=== PATIENT | male | born 1995 | race Caucasian/White ===

== ENCOUNTER 2017-11-13 14:50 | Emergency (ER) | payer OTHER, SELFPAY ==
[2017-11-13 14:52] VITALS: BP 159/95; PULSE 85; RESP 16; TEMP 36.5; O2SAT 100; BMI 30.9
--- NOTE | 2017-11-13 15:17 | ED.VISSUMM ---
- ER Visit Summary Date of Service: 11/13/17 Chief Complaint: Leg cramps History of Present Illness: The patient is a 22 M presents to the emergency department after 1 month of leg cramps. He was actually seen last year for right leg cramps. 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 He states that often times at nights he has muscle spasm it is which his calf goes into spasm. He states he has also been developing varicose veins in his legs. The patient states that he simply has not had time to go to his doctor and talk about this. He went to the urgent care and they told him to come to the emergency room. His been taking potassium supplements. He started wearing compression socks. He does not do much physical conditioning. As far as stretching he demonstrates a few exercises he does which basically is stretching his hamstrings. Physical Examination: Afebrile vital signs are stable Gen: Well-nourished well-developed Head: Normocephalic atraumatic Eyes: Perrl EOMI ENT: TMs clear no rhinorrhea moist mucous membranes Neck: Supple no lymphadenopathy no JVD nontender CVS: Regular rate rhythm no murmurs normal S1-S2 Respiratory: No distress clear to auscultation bilaterally chest nontender Abdomen: Soft nontender nondistended normal bowel sounds no masses Back: Nontender Extremity: Nontender no edema Skin: Normal color no rash there are varicose veins near his feet. Neuro: alert orientated ?3 CN II-XII intact normal strength sensation reflexes gait cerebellar Psych: Normal affect normal mood Emergency Department Course and Treatment: Patient was advised that this is a long-term problem and there is no easy solution. He is advised that he needs to have deep tissue massage. Heat therapy. Calf specific stretching exercises. He is advised that physical therapy would be of benefit for him. We talked about massage techniques. I am going to write him a few Ativan for severe cramps during the night only. He is to see his doctor tomorrow which he states he can do. Impression: 1. Bilateral leg muscle cramps 2. Varicose veins bilateral legs This note was generated with [employer] dictation software. It may contain incorrect words, spelling, and punctuation that were not noted in review of the chart prior to signing ED Disposition - Plan for ED Patient: Disposition: Home or Assisted Living Chief Complaint: Lower Extremity Injury Instructions: ED Muscle Pain Leg Cramps Prescriptions: Lorazepam [Ativan] 1 mg PO QHS PRN PRN #5 tab PRN Reason: Muscle Spasm Referrals: Shoaib Humphrey MD [Primary Care Provider] - As soon as possible Additional Instructions: 1. Significant oral hydration 2. Deep tissue massage after work 3. Continued use of compression socks 4. Ativan at night for severe muscle cramps only to be taken with oral hydration 5. You need to speak with her doctor about physical therapy
[2017-11-13 15:39] VITALS: RESP 18
== END 2017-11-13 15:40 | disposition home or self-care (01) ==
PROVIDERS: Emergency Provider Emergency Medicine; Family Provider Family Medicine; PCP Family Medicine
DX: M62.831 Muscle spasm of calf (principal); I83.93 Asymptomatic varicose veins of bilateral lower extremities; M79.605 Pain in left leg; M79.604 Pain in right leg; K58.9 Irritable bowel syndrome, unspecified
CPT/HCPCS: 99282

== ENCOUNTER 2018-02-27 15:06 | Emergency (ER) | payer OTHER, SELFPAY ==
[2018-02-27 15:07] VITALS: BP 163/90; PULSE 98; RESP 18; TEMP 36.8; O2SAT 100; BMI 31.1
[2018-02-27 15:47] VITALS: BP 170/100
[2018-02-27] MEDS: LORazepam 1 MG Tablet PO (16:26)
[2018-02-27 17:13] LABS: Anion Gap 5 (5-15); BUN 9 mg/dL (7-18); BUN/Creat Ratio 10.2 RATIO (10-20); Chloride 107 mmol/L (98-107); Creatinine, Serum 0.88 mg/dL (0.70-1.30); EST Glomerular Filtration Rate 114 mL/min (>60); Est Glom Filt Rate - Afr Amer 138 mL/min (>60); Glucose 104 mg/dL (74-106); Sodium Level 138 mmol/L (136-145)
--- NOTE | 2018-02-27 17:19 | ED.VISSUMM ---
- ER Visit Summary Date of Service: 02/27/18 Chief Complaint: Anxiety [] History of Present Illness: The patient is a 22 M presents the emergency department with multiple complaints. Patient states that he was playing video games on his bed when he got up to go to work and felt like his thighs got tight. Patient felt soreness and tightness in his neck. Patient got numbness and tingling in his fingertips and became very anxious. Patient states that he started the panic and have a panic attack. Patient has had a couple other episodes like this in the past. Patient does not take anything for anxiety or depression.] Physical Examination: [HEENT-PERRLA, EOMI. Cranial nerves II through XII grossly intact. TMs clear. Mucous membranes moist. No adenopathy. Cardiovascular-regular rate and rhythm without murmur or ectopy Lungs-clear to auscultation, chest wall stable without crepitus or subcu emphysema Abdomen-normoactive bowel sounds, soft, nontender, no rebound or rigidity, no peritoneal signs. Extremities-intact ?4, normal range of motion, normal pulses, atraumatic]. Patient has plus 5 out of 5 muscle strength in the upper and lower extremities. Test Results: [BMP obtained was normal] Emergency Department Course and Treatment: [Patient received Ativan 1 mg p.o. and felt improved after.] Treatment Plan: [Patient will be given a prescription for as needed Ativan. Patient advised to follow-up with his primary care physician within next 3-5 days.] Disposition: [Discharged home in stable condition] Impression: [Anxiety reaction] This note was generated with [employer] dictation software. It may contain incorrect words, spelling, and punctuation that were not noted in review of the chart prior to signing ED Disposition - Plan for ED Patient: Chief Complaint: Anxiety Referrals: Shoaib Humphrey MD [Primary Care Provider] -
--- NOTE | 2018-02-27 17:21 | ED.DEP ---
ED Disposition - Plan for ED Patient: Chief Complaint: Anxiety Instructions: ED Panic Attack Prescriptions: Lorazepam [Ativan] 1 mg PO TID PRN #10 tab PRN Reason: Anxiety Referrals: Shoaib Humphrey MD [Primary Care Provider] - 3-5 Days
[2018-02-27 17:39] VITALS: BP 160/98; PULSE 88; RESP 16; RESP 18; O2SAT 98
== END 2018-02-27 17:40 | disposition home or self-care (01) ==
LOC: ED 16:04
PROVIDERS: Emergency Provider Emergency Medicine; Family Provider Family Medicine; PCP Family Medicine
DX: F41.1 Generalized anxiety disorder (principal); K58.9 Irritable bowel syndrome, unspecified; Z86.2 Personal history of diseases of the blood and blood-forming organs and certain disorders involving the immune mechanism; Z79.899 Other long term (current) drug therapy; Z72.0 Tobacco use
CPT/HCPCS: 80048; 99283

== ENCOUNTER 2019-02-05 19:05 | Emergency (ER) | payer OTHER, SELFPAY ==
[2019-02-05 19:06] VITALS: BP 170/104; PULSE 92; RESP 15; TEMP 36.7; O2SAT 100; BMI 35.6
--- NOTE | 2019-02-05 20:28 | ED.VISSUMM ---
- ER Visit Summary Date of Service: 02/05/19 Chief Complaint: Dental pain History of Present Illness: The patient is a 23 M who presents with dental pain that became worse today. Patient states he had a tooth pulled this morning. Patient states the pain is gradually gotten worse throughout the day today. Patient states he has been taking ibuprofen with no relief. Patient denies any fevers or chills. Patient describes the pain as a pressure. Patient states the pain is localized to the left lower posterior molar. Patient admits to cold sensitivity. Patient denies any chest pain or shortness of breath. Patient denies any nausea or vomiting. Physical Examination: Vital signs are stable. Patient is afebrile. Patient is in no acute distress. Oral mucosa is pink and moist. There is an extraction over the left lower second molar area. There is no dry socket noted. There is dried blood noted over the extraction site. Oropharynx is clear. Airway is patent. Neck is supple. Trachea is midline. There is no JVD or lymphadenopathy noted. Heart was regular rate and rhythm. Lungs are clear and equal bilaterally. Emergency Department Course and Treatment: Patient was given 1 dose of [place] here. Patient was instructed to continue taking Tylenol and ibuprofen as needed for pain at home. Patient was instructed to follow-up with his dentist in 5 to 7 days. Patient was instructed to return if worse in any way. Patient understood and was agreeable with the plan. All questions were answered. Disposition: Discharge home Impression: Odontalgia This note was generated with [employer] dictation software. It may contain incorrect words, spelling, and punctuation that were not noted in review of the chart prior to signing ED Disposition - Plan for ED Patient: Disposition: Home or Assisted Living Diagnosis: Odontalgia Instructions: Dental Pain Referrals: Shoaib Humphrey MD [Primary Care Provider] - 5-7 Days
[2019-02-05] MEDS: HYDROcodone Bitartrate/Apap 5/325 Tablet PO (20:42)
[2019-02-05 20:44] VITALS: PULSE 99; RESP 16; O2SAT 97
--- NOTE | 2019-02-05 20:45 | ED.RN ---
THIS NURSE REVIEWED D/C INSTRUCTIONS WITH PT. PT VERBALIZED UNDERSTANDING OF INSTRUCTIONS. PT DENIES FURTHER NEEDS OR QUESTIONS AT THIS TIME.
== END 2019-02-05 20:56 | disposition home or self-care (01) ==
PROVIDERS: Emergency Provider Emergency Medicine; Family Provider Family Medicine; PCP Family Medicine
DX: K08.89 Other specified disorders of teeth and supporting structures (principal); M54.2 Cervicalgia; E66.9 Obesity, unspecified; F17.200 Nicotine dependence, unspecified, uncomplicated
CPT/HCPCS: 99283

== ENCOUNTER 2020-05-05 14:05 | Emergency (ER) | payer OTHER, SELFPAY ==
[2020-05-05 14:06] VITALS: BP 187/126; PULSE 80; RESP 14; TEMP 36.7; O2SAT 98; BMI 33.4
== END 2020-05-05 16:21 | disposition left against medical advice (07) ==
LOC: ED 16:19
PROVIDERS: Emergency Provider Emergency Medicine; PCP Family Medicine
DX: Z53.21 Procedure and treatment not carried out due to patient leaving prior to being seen by health care provider (principal)

== ENCOUNTER 2021-07-15 13:07 | Observation (INO) | payer OTHER, SELFPAY ==
[2021-07-15] VITALS (9 sets, daily range): BP systolic 145–174; BP diastolic 83–113; PULSE 108–128; RESP 15–22; TEMP 36.1–37.3; O2SAT 95–100; BMI 33.5; BMI 31.9
--- NOTE | 2021-07-15 13:53 | RAD_ITS ---
STUDY: X-RAY - ABDOMEN/PELVIS REASON FOR EXAM: Male, 25 years old. Constipation TECHNIQUE: 4 views of the abdomen and pelvis COMPARISON: None. FINDINGS: Normal visualized lung bases. There is an unremarkable bowel gas pattern. There is no demonstrated free abdominal air. Extremely large stool burden. Normal soft tissue structures. Normal visualized osseous structures. RAD/Abdomen Single View (Portable) IMPRESSION: Extremely large stool burden. Electronically Signed: Gerson Adams MD at 15:10 EST Tel , Service support ,
--- NOTE | 2021-07-15 14:01 | ED.VIS.GI ---
HPI HPI - GI History of Present Illness Chief Complaint: Constipation Detail of Chief Complaint: Abdominal pain and constipation Informant: patient Narrative Narrative: Patient presents to the emergency department complaint of abdominal pain. Patient states that he is quite constipated and has not had a good bowel movement in over a month. Patient states that years ago when he was in high school he had an impaction that required disimpaction via sedation at [facility]. Patient has history of IBS. Patient denies any vomiting. He denies fever. He denies urinary symptoms. Patient states at night he will leak stool but has not had a good bowel movement in a month. Prior similar symptoms: Yes PFSH PFSH Medical History no medical history Allergy/AdvReac Type Severity Reaction Status Date / Time barium sulfate Allergy Other Verified 07/15/21 13:08 lactose Allergy Abd Verified 07/15/21 13:08 cramps/diarrhea tramadol Allergy Hives Verified 07/15/21 13:08 Social History Smoking Status: Unknown if ever smoked ROS ROS ED Constitutional Constitutional ED: Reports systems reviewed and no addt'l complaints, except as documented; Denies body ache(s), change in weight or chills Eyes Eyes: Denies acute decrease in peripheral vision, change in vision, double vision or loss of vision ENT ENT ED: Reports none; Denies ear pain, lip swelling, loss taste/smell, neck pain, otalgia or sore throat Cardiovascular Cardiovascular: Reports none; Denies abdominal pain, chest pain with activity, leg edema, lightheadedness, palpitations, rapid heart rate or syncope Respiratory/Chest Respiratory/Chest: Reports none; Denies change in mental status, dry cough, dyspnea, hemoptysis, shortness of breath at rest or shortness of breath with exertion Gastrointestinal Gastrointestinal: Reports none, abdominal pain and constipation; Denies change in stool character, diarrhea, hematemesis, hematochezia, melena, rectal bleeding or vomiting Genitourinary Genitourinary ED: Reports none; Denies abdominal discomfort, anuria, dysuria, genital pain or polyuria Musculoskeletal Musculoskeletal: Reports none; Denies arthralgias, back pain, difficulty walking, extremity pain, muscle weakness or myalgias Integumentary Reports none; Denies abscess or rash Neurologic Neurologic: Reports none; Denies abnormal gait, confusion, focal weakness, frequent falls, headache(s), loss of vision, numbness, paresthesias, radicular pain, vertigo or weakness Psychiatric Psychiatric: Reports systems reviewed and no addt'l complaints, except as documented and none; Denies behavioral changes, confusion, difficulty concentrating, hallucinations, suicidal ideation, tactile hallucinations or visual hallucinations Endocrine Endocrinology: Denies none, cold intolerance, excessive sweating, fatigue or heat intolerance Hematologic/Lymphatic Hematologic/Lymphatic: Reports none; Denies anemia, easy bleeding or easy bruising Allergic/Immunologic Allergic/Immunologic ED: Denies as per HPI, none, lip swelling, mouth swelling, throat swelling, tongue swelling or hives EXAM Physical Exam Const Vital Signs: 07/15/21 13:08 Temperature 97.2 F L Temperature Source Temporal Pulse Rate 120 H Respiratory Rate 16 Blood Pressure 145/103 H Blood Pressure Mean 117 Pulse Ox 95 Oxygen Delivery Method Room Air Positive well nourished and well developed General Appearance ED: well developed and NAD HEENT Reports TM's clear and moist mucous membranes normocephalic and atraumatic; Negative for trauma or tenderness Tympanic Membrane ED: Yes TM's clear Eyes PERRL and EOMs intact bilaterally General Eye ED: Negative for pale conjunctiva or scleral icterus Neck no lymphadenopathy, supple and no JVD General: Negative for tenderness Chest Wall inspection of chest normal and palpation of chest normal Chest: Negative for tenderness Resp normal respiratory effort and clear to auscultation bilaterally Effort and Inspection: Negative for respiratory distress or pain with movement Auscultation: Negative for rhonchi, wheezes or diminished lung sounds Cardio regular rate, regular rhythm, S1 normal heart sound, S2 normal heart sound and no murmurs Peripheral Pulses: pulses 2+ throughout GI normal to inspection, nondistended, normoactive bowel sounds, soft to palpation, non-distended and no masses GI Narrative: Patient has mild diffuse distention of the abdomen with mild diffuse tenderness. No rebound, rigidity, or peritoneal signs. On rectal exam. He has very hard stool within the rectal vault that I attempted to disimpact manually however he does not tolerate the exam and the stool was quite hard. Back/Spine no CVA tenderness and no thoracic nor lumbar tenderness Extremity normal to inspection General Extremety ED: Negative for edema General Extremity: Negative for edema Neuro oriented x3, CN's II-XII intact bilaterally, no sensory deficits noted and gait normal Sensorium / Orientation: awake, alert, oriented to person, oriented to place and oriented to time Motor Exam: strength 5/5 throughout and strength abnormal Psych mental status grossly normal Skin no rashes or lesions noted and no wounds MDM MDM MDM Narrative Medical decision making narrative: IV line established on arrival. Basic labs were unremarkable. I initially attempted digital disimpaction however this was unsuccessful as there is a large stool burden within the rectal vault and the stool is hard. Patient unable to tolerate exam. Case was discussed with general surgeon after plain films showed large amount of stool burden throughout the colon. Patient will be evaluated by general surgeon Dr. Garcia in the department. I suspect patient will likely require sedation in OR decompression. Lab Data Attestation: I reviewed the patient's lab results. Labs: Laboratory Results - last 24 hr 07/15/21 07/15/21 07/15/21 14:15 14:15 14:15 WBC 6.8 RBC 4.16 L Hgb 12.2 L Hct 36.6 L MCV 88.0 MCH 29.3 MCHC 33.3 RDW Std Deviation 39.1 RDW Coeff of Arvin 12.2 Plt Count 394 MPV 9.3 Immature Gran % (Auto) 0.400 Neut % (Auto) 61.3 Lymph % (Auto) 27.4 [place] % (Auto) 9.5 Eos % (Auto) 1.0 Baso % (Auto) 0.4 Absolute Neuts (auto) 4.1 Absolute Lymphs (auto) 1.85 Nucleated RBC % 0 Sodium 139 Potassium 3.6 Chloride 106 Carbon Dioxide 25.0 Anion Gap 8 BUN 13 Creatinine 0.68 L Estim Creat Clear Calc 187.67 Est GFR (MDRD) Af Amer 182 Est GFR (MDRD) Non-Af 151 BUN/Creatinine Ratio 19.2 Glucose 104 Lactic Acid 0.6 Calcium 8.8 Radiography Diagnostic Testing: Clinical Impression(s) from Imaging Studies KUB X-Ray 07/15/21 13:53 IMPRESSION: Extremely large stool burden. Electronically Signed: Gerson Adams MD at 15:10 EST Tel , Service support , Abdomen/Pelvis CT 07/15/21 16:03 Discharge Plan Triage Chief Complaint: Constipation ED Provider: Toñito Young Dx/Rx/DC Orders Clinical Impression: Constipation, Fecal impaction in rectum Primary Care Provider: Shoaib Humphrey Referrals: Shoaib Humphrey MD [Primary Care Provider] - Disposition Disposition: Acute Care Hospital [facility]
[2021-07-15 14:23] LABS: Absolute Lymphocyte Count 1.85 X10^3/uL (0.83-4.51); Absolute Neutrophil Count 4.1 X10^3/uL (2.0-7.7); Basophil# 0.03 X10^3/uL; Basophil% 0.4 % (0-1); Eosinophil# 0.07 X10^3/uL; Hematocrit 36.6 % (40-54); Hemoglobin 12.2 g/dL (13.0-16.5); Lymphocyte # 1.85 X10^3/ul (0.83-4.51); Lymphocyte % 27.4 % (19-41); Mean Corp Hgb Conc 33.3 g/dL (32-36); Mean Corpuscular Hgb 29.3 pg (27.0-32.0); Mean Platelet Vol. 9.3 fl (6.2-12.0); Monocyte# 0.64 X10^3/uL; Monocyte% 9.5 % (0-10); NRBC Flagged by Analyzer 0 % (0-5); Neutrophil # 4.13 X10^3/uL (2.7-7.7); Neutrophil % 61.3 % (47-70); Platelet Count 394 K/mm3 (150-450); RBC Distribution Width CV 12.2 % (11.6-14.6); RBC Distribution Width SD 39.1 fl (35.1-43.9); Red Blood Count 4.16 M/mm3 (4.6-6.2); White Blood Count 6.8 K/mm3 (4.4-11.0)
[2021-07-15 14:37] LABS: Anion Gap 8 (5-15); BUN 13 mg/dL (7-18); BUN/Creat Ratio 19.2 RATIO (10-20); Calcium,Total 8.8 mg/dL (8.5-10.1); Chloride 106 mmol/L (98-107); Creatinine, Serum 0.68 mg/dL (0.70-1.30); EST Glomerular Filtration Rate 151 mL/min (>60); Est Glom Filt Rate - Afr Amer 182 mL/min (>60); Estimated Creatinine Clearance 187.67 ml/min; Glucose 104 mg/dL (74-106); Potassium 3.6 mmol/L (3.5-5.1); Sodium Level 139 mmol/L (136-145)
[2021-07-15 14:49] LABS: Lactic Acid 0.6 mmol/L (0.4-1.9)
--- NOTE | 2021-07-15 16:03 | CT_ITS ---
STUDY: CT Abdomen And Pelvis W/O Contrast Injection 07/15/2021 4:44 PM REASON FOR EXAM: Male, 25 years old. ABDOMINAL PAIN constipation TECHNIQUE: Transaxial images were obtained without oral contrast, and without intravenous contrast. Individualized dose optimization techniques were used for this CT. COMPARISON: 10/15/2015 FINDINGS: The visualized lung bases are unremarkable. The visualized portions of the heart are within normal limits. There is decreased attenuation of the liver consistent with steatosis. Normal gallbladder and extrahepatic biliary system. Normal spleen. Normal pancreas. Normal bilateral adrenal glands. No acute findings of the right kidney. No acute findings of the left kidney. Normal visualized stomach. Normal small intestine. There is an inflamed colon filled with feces and mural thickening. This suggests stercoral colitis. There is non-visualization of the appendix. Stool throughout the colon suggesting constipation. There are no acute findings of the abdominal aorta. Collapsed inferior vena cava suggesting dehydration. Normal urinary bladder. Normal abdominal wall. Normal osseous structures. IMPRESSION: (NOT LISTED IN ORDER OF SIGNIFICANCE) Fatty liver. There is an inflamed colon filled with feces and mural thickening. This suggests stercoral colitis with fecal impaction. Collapsed inferior vena cava suggesting dehydration. Other findings as above. Electronically Signed: Seb Harvey MD at 17:01 EST , Service support , CT/Abdomen/Pelvis without Cont
--- NOTE | 2021-07-15 17:17 | NURSING ---
MED SURG RENAN KEBEDE PAIN, FECAL IMPACTATION, CONSTIPATION
--- NOTE | 2021-07-15 17:36 | ED.RN ---
REPORT GIVEN TO JELANI
--- NOTE | 2021-07-15 17:49 | PCM.HP.STD ---
[facility] - General General Date of Admission: 07/15/21 HPI Narrative JAVIER MILLS, is a 25 M who presents to [facility] ER with complaints of no regular bowel movement for the last 1 month. He admits to a history of frequent constipation and dates that he is diagnosed with irritable bowel syndrome. In the ER he is uncomfortable and describes his discomfort as primarily being in the left upper quadrant of his abdomen as well as cramping in his legs. He feels severely distended but is otherwise not having significant abdominal pain. ER work-up is notable for normal chemistries/CBC but KUB shows severe distention of the colon with stool and follow-up CT confirms this in greater detail. CT Shows severe fecal impaction particularly from the rectum to the splenic flexure. The sigmoid colon is maximally dilated at approximately 18 cm by imaging. The transverse and ascending colon are both relatively normal in diameter as well as relatively decompressed small bowel. Based on this presentation and radiographic exam, surgery has been asked to see the patient for possible fecal disimpaction with sedation. Mr. Mills states that when he is normally constipated his bowel movements will occur with a frequency of 1-2 times per week. During this time he states that he usually requires a couple of classes of MiraLAX and some stool softeners to achieve this frequency. However, he states that he has fallen off his usual and expresses some challenges at home as they relate to being the father of 2 children. 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 He confesses that it has probably been 7 to 8 years since he has last followed up with gastroenterology. Further back in his history, Meri's mother relates a history of her son standing up in the bath when he was approximately in 6 grade screaming in pain and they came to realize that he was having bilirubin deposited in his urine is related to severe constipation. Sometime after this in his high school years, Mr. Mills underwent a barium enema study. Unfortunately, the barium failed to pass even after 2 weeks time. He states that they then decided to a colonic transit study but the sits markers became indistinguishable with the background of barium and the decision was made to pursue manual disimpaction with sedation (he estimates this was at about 19 years of age). When asked about any family history, patient's mother admits that she has a problem with constipation and has required 2 separate operations herself for twisting of the colon and was told that her colon was abnormally large and may recur she may require resection of some of it at some point. [facility] Medical History no medical history Home Medications NK 07/15/21 [History Last Taken Unknown] Allergy/AdvReac Type Severity Reaction Status Date / Time barium sulfate Allergy Other Verified 07/15/21 13:08 lactose Allergy Abd Verified 07/15/21 13:08 cramps/diarrhea tramadol Allergy Hives Verified 07/15/21 13:08 Social History Smoking Status: Unknown if ever smoked Vital Signs Vital Signs Vital Signs: 07/15/21 13:08 07/15/21 17:28 07/15/21 17:32 Temperature 97.2 F L 98 F 98 F Temperature Source Temporal Temporal Temporal Pulse Rate 120 H 128 H 128 H Respiratory Rate 16 18 18 Blood Pressure 145/103 H 174/110 H 174/110 H Blood Pressure Mean 117 131 131 Pulse Ox 95 96 96 Oxygen Delivery Method Room Air Room Air Room Air Weight Weight: 253 lb 15.56 oz Body Mass Index (BMI) 33.5 Physical Exam Const alert and oriented x3 Constitutional Narrative: In distress from his discomfort General Appearance: cooperative Resp normal respiratory effort GI GI Narrative: Abdominal distention present. There is abdominal striae in the lower quadrants of the abdomen. Patient is mildly firm with palpation but nontender x4 quadrants. With rectal exam, patient is passing gas and having liquid stool. I palpate no masses within the anal canal. At approximately 6 cm I palpate a significant stool burden that is quite firm. F Extremity Extremity Narrative: Mild bilateral edema General Extremity: edema bilateral Results Lab / Micro Data Result Diagrams: 07/15/21 14:15 07/15/21 14:15 Labs: Laboratory Results - last 24 hr 07/15/21 14:15: WBC 6.8, RBC 4.16 L, Hgb 12.2 L, Hct 36.6 L, MCV 88.0, MCH 29.3, MCHC 33.3, RDW Std Deviation 39.1, RDW Coeff of Arvin 12.2, Plt Count 394, MPV 9.3, Immature Gran % (Auto) 0.400, Neut % (Auto) 61.3, Lymph % (Auto) 27.4, Stewart % (Auto) 9.5, Eos % (Auto) 1.0, Baso % (Auto) 0.4, Absolute Neuts (auto) 4.1, Absolute Lymphs (auto) 1.85, Nucleated RBC % 0 07/15/21 14:15: Sodium 139, Potassium 3.6, Chloride 106, Carbon Dioxide 25.0, Anion Gap 8, BUN 13, Creatinine 0.68 L, Estim Creat Clear Calc 187.67, Est GFR (MDRD) Af Amer 182, Est GFR (MDRD) Non-Af 151, BUN/Creatinine Ratio 19.2, Glucose 104, Calcium 8.8 07/15/21 14:15: Lactic Acid 0.6 Radiology Impression KUB X-Ray 07/15/21 13:53 IMPRESSION: Extremely large stool burden. Electronically Signed: Gerson Adams MD at 15:10 EST Tel , Service support , Abdomen/Pelvis CT 07/15/21 16:03 Assessment & Plan Assessment/Plan (1) Fecal impaction in rectum: PLAN: This is a 25-year-old male with severe constipation as above. However, there does appear to be a change in the appearance of the stool by CT imaging which suggests a more significant dehydration of that fecal material which is found in the patient's rectum. Is my hope that by manually removing this stool, the patient may be able to evacuate the rest of his colon. Therefore, we will plan to proceed for manual disimpaction under sedation. (2) Constipation: QUALIFIERS: Constipation type: chronic idiopathic constipation Qualified Code(s): K59.04 - Chronic idiopathic constipation PLAN: This is a 25-year-old male who presents with severe constipation concerning for underlying colonic dysmotility that would be more than expected with typical irritable bowel syndrome. There is no history of Hirschsprung's, and both patient and the mother confirm that the GI symptoms developed during adolescence approximately the sixth grade. He has been under the care of numerous specialists but was only ever given the diagnosis of irritable bowel syndrome. He now presents with a 1 month history of no normal bowel movement. Patient is distended on exam, but his exam is relatively reassuring?as are his laboratories?that there is no bowel compromise at this point. CT imaging is quite concerning and shows a severely dilated sigmoid colon by stool. At maximal diameter this measures 18 cm. Importantly I do not see much if any evidence of pneumatosis coli and therefore believe the colon is still perfused. There does seem to be a transition in the stool appearance from the sigmoid colon into the rectum with a higher density in the rectum potentially suggesting more stool dehydration. Given this appearance, and the patient's clinical stability, I think it is reasonable to pursue manual disimpaction under sedation and follow-up this with intentional enemas to see if we are able to salvage his colon and move the stool burden that exists. I have held an extensive conversation with both the patient and his mother about the risks of requiring a possible colostomy through this treatment and stressed the need to avoid such a scenario. I have also laid out expectations that I would like to assume a very aggressive regimen of enemas and maintain an n.p.o. status in the postoperative phase. Additionally I would like to minimize narcotics?for their negative effects on bowel motility. We will plan to proceed emergently for colonic disimpaction. Charges/Coding Visit Charges Inpatient E&M: 99306 Init Hosp L2
--- NOTE | 2021-07-15 18:39 | ED.RN ---
PT TAKEN TO OR. IV FLUIDS ON THE BED POLE. PAGE WARD NOTIFIED OF THE SAME. PT HAS BEEN AMBULATING AROUND THE ROOM TO TRY TO HELP WITH HIS PAIN AND ANXIETY
[2021-07-15] MEDS: Lubricating Jelly 60 GM Tube 30 GM (19:00)
--- NOTE | 2021-07-15 19:57 | OP.PCM_ITS ---
Report of Operation Date of Procedure: 07/15/21 Pre-Operative Diagnosis: Severe constipation/fecal impaction Post-Operative Diagnosis: Same Surgery/Procedure Performed:: Manual fecal disimpaction under general anesthesia Description of Surgical Findings:: ?Significant stool burden in the rectum starting at 6 cm from the anal verge ?Abnormally dilated anal sphincter which permitted entry of my entire arm ?Severely dilated rectum with firm stool ?Severely dilated sigmoid colon with pasty stool Surgeon: Robert Garcia Type of Anesthesia: General Anesthesiologist: Gamaliel German Estimated Blood Loss (mL): <10 Description of Procedure: Patient was brought to the operating room from the [facility] department where he completed consents with both myself and anesthesia. In the operating room he was positioned supine on the operating room table and administered a general endotracheal anesthetic. Once he was intubated he was then positioned in a left lateral decubitus position taking care to pad pressure points. A timeout was conducted to confirm patient and the procedure to be performed. Draping was placed to minimize contamination for the procedure and the procedure was begun with manual disimpaction. I initially inserted a lubricated finger, but found the patient's anal sphincter to be abnormally accommodating and once I performed manual disimpaction of the patient's rectum, I was able to insert my arm to the depth of the elbow. Within the rectum patient's stool was fairly thick and dehydrated but more proximally in the area of the sigmoid colon the stool was much looser to the consistency of pudding. I was careful to avoid exerting any manual pressure against the rectum or colon shahid during this procedure. Once the rectum/colon was evacuated of all solid waste I then placed a 36 [place] Malecot in the anus and performed irrigation of the sigmoid colon with 3 L of sterile saline. The majority of this volume was reclaimed by allowing the irrigant to pass freely through the Malecot into a collection container. Patient's vitals appeared to improve following volume administration from anesthesia and this decompression of the distal bowel. Patient was then cleaned up of all visible stool, was repositioned supine, and then extubated without event. He appeared to tolerate the procedure without complication but complained of severe leg cramps so electrolytes will be obtained in PACU. In total, over 11 pounds of solid waist were removed with this procedure. Complications None Admit VTE Documentation VTE Mechan Device Prophylaxis: SCD's VTE Pharm Prophylaxis ordered?: No
[2021-07-15] MEDS: 0.9% Normal Saline 1,000 ML 150 ML IV (20:48)
[2021-07-15 20:49] LABS: Anion Gap 8 (5-15); BUN 12 mg/dL (7-18); BUN/Creat Ratio 17.7 RATIO (10-20); Calcium,Total 8.1 mg/dL (8.5-10.1); Chloride 109 mmol/L (98-107); Creatinine, Serum 0.68 mg/dL (0.70-1.30); EST Glomerular Filtration Rate 151 mL/min (>60); Est Glom Filt Rate - Afr Amer 183 mL/min (>60); Estimated Creatinine Clearance 187.67 ml/min; Glucose 125 mg/dL (74-106); Magnesium 2.1 mg/dL (1.6-2.6); Potassium 4.1 mmol/L (3.5-5.1); Sodium Level 142 mmol/L (136-145)
--- NOTE | 2021-07-15 21:16 | PCS.PANDOC ---
PANDEMIC DOCUMENTATION INITIATED: Date: 07/15/2021 Time: 2104
[2021-07-15] MEDS: Acetaminophen 325 MG Tablet 650 MG PO (21:44)
[2021-07-16] VITALS (7 sets, daily range): BP systolic 137–163; BP diastolic 76–97; PULSE 105–120; RESP 18–20; TEMP 36.6–37.2; O2SAT 96–99
[2021-07-16] MEDS: 0.9% Normal Saline 1,000 ML 150 ML IV ×2 (01:19→08:24)
[2021-07-16] MEDS: Ketorolac 30 MG/ML Syringe IV (01:19)
[2021-07-16 06:20] LABS: Absolute Lymphocyte Count 1.36 X10^3/uL (0.83-4.51); Basophil# 0.02 X10^3/uL; Basophil% 0.2 % (0-1); Hematocrit 28.3 % (40-54); Hemoglobin 9.3 g/dL (13.0-16.5); Lymphocyte # 1.36 X10^3/ul (0.83-4.51); Lymphocyte % 16.7 % (19-41); Mean Corp Hgb Conc 32.9 g/dL (32-36); Mean Corpuscular Hgb 29.4 pg (27.0-32.0); Mean Corpuscular Volume 89.6 fL (80-94); Mean Platelet Vol. 9.7 fl (6.2-12.0); Monocyte# 0.74 X10^3/uL; Monocyte% 9.1 % (0-10); NRBC Flagged by Analyzer 0 % (0-5); Neutrophil # 5.98 X10^3/uL (2.7-7.7); Neutrophil % 73.5 % (47-70); Platelet Count 325 K/mm3 (150-450); RBC Distribution Width CV 12.2 % (11.6-14.6); RBC Distribution Width SD 39.7 fl (35.1-43.9); Red Blood Count 3.16 M/mm3 (4.6-6.2); White Blood Count 8.1 K/mm3 (4.4-11.0)
[2021-07-16 06:50] LABS: Anion Gap 6 (5-15); BUN 9 mg/dL (7-18); BUN/Creat Ratio 16.2 RATIO (10-20); Calcium,Total 7.8 mg/dL (8.5-10.1); Chloride 110 mmol/L (98-107); Creatinine, Serum 0.56 mg/dL (0.70-1.30); EST Glomerular Filtration Rate 189 mL/min (>60); Est Glom Filt Rate - Afr Amer 229 mL/min (>60); Estimated Creatinine Clearance 227.89 ml/min; Glucose 94 mg/dL (74-106); Phosphorus 3.7 mg/dL (2.5-4.9); Potassium 3.3 mmol/L (3.5-5.1); Sodium Level 140 mmol/L (136-145)
--- NOTE | 2021-07-16 07:00 | RAD_ITS ---
STUDY: X-RAY - ABDOMEN/PELVIS REASON FOR EXAM: Male, 25 years old. Severe fecal impaction s/p manual disimpaction TECHNIQUE: Single AP view of the abdomen / pelvis. COMPARISON: Comparison is made with prior examination 07/15/2021. FINDINGS: There is an abundance of fecal material throughout the colon. The visualized liver, spleen and kidneys are grossly normal in size and morphology. Normal soft tissue structures. Normal visualized osseous structures. RAD/Abdomen Single View (Portable) IMPRESSION: A large amount of residual fecal material is seen although there has been improvement as compared to prior study. Electronically Signed: Jurgen Valencia MD at 11:58 EST , Service support ,
--- NOTE | 2021-07-16 07:58 | PN.SURG_ITS ---
Subjective Subjective Patient was seen and examined during AM rounds. He is sitting upright in bed and resting well. He states that his anxiety and lower extremity cramping/pain are both better. He denies any significant discomfort from his rectum. He did state that his initial enema yesterday was uncomfortable but this morning's was better. He confirms that he did have output with both. He states that he is now starving. He also confirms that his abdominal girth seems to be back to his normal status. Objective Data Objective Data Vital Signs: Vital Signs Temp Pulse Resp BP Pulse Ox 98.7 F 120 H 18 150/92 H 99 07/16/21 06:06 07/16/21 06:06 07/16/21 06:06 07/16/21 06:06 07/16/21 06:06 Oxygen Delivery Method Room Air Weight: 242 lb Body Mass Index (BMI) 31.9 Intake & Output: Intake and Output for Last 24 Hours 07/14/21 07/15/21 07/16/21 23:59 23:59 23:59 Intake Total 1000 / 1000 677.5 / 677.5 Balance 1000 / 1000 677.5 / 677.5 Lab / Micro Data Result Diagrams: 07/16/21 05:50 07/16/21 05:50 Labs: Laboratory Results - last 24 hr 07/15/21 14:15: WBC 6.8, RBC 4.16 L, Hgb 12.2 L, Hct 36.6 L, MCV 88.0, MCH 29.3, MCHC 33.3, RDW Std Deviation 39.1, RDW Coeff of Arvin 12.2, Plt Count 394, MPV 9.3, Immature Gran % (Auto) 0.400, Neut % (Auto) 61.3, Lymph % (Auto) 27.4, [place] % (Auto) 9.5, Eos % (Auto) 1.0, Baso % (Auto) 0.4, Absolute Neuts (auto) 4.1, Absolute Lymphs (auto) 1.85, Nucleated RBC % 0 07/15/21 14:15: Sodium 139, Potassium 3.6, Chloride 106, Carbon Dioxide 25.0, Anion Gap 8, BUN 13, Creatinine 0.68 L, Estim Creat Clear Calc 187.67, Est GFR (MDRD) Af Amer 182, Est GFR (MDRD) Non-Af 151, BUN/Creatinine Ratio 19.2, Glucose 104, Calcium 8.8 07/15/21 14:15: Lactic Acid 0.6 07/15/21 20:26: Sodium 142, Potassium 4.1, Chloride 109 H, Carbon Dioxide 25.0, Anion Gap 8, BUN 12, Creatinine 0.68 L, Estim Creat Clear Calc 187.67, Est GFR (MDRD) Af Amer 183, Est GFR (MDRD) Non-Af 151, BUN/Creatinine Ratio 17.7, Glucose 125 H, Calcium 8.1 L, Magnesium 2.1 07/16/21 05:50: WBC 8.1, RBC 3.16 L, Hgb 9.3 L, Hct 28.3 L, MCV 89.6, MCH 29.4, MCHC 32.9, RDW Std Deviation 39.7, RDW Coeff of Arvin 12.2, Plt Count 325, MPV 9.7, Immature Gran % (Auto) 0.500, Neut % (Auto) 73.5 H, Lymph % (Auto) 16.7 L, [place] % (Auto) 9.1, Eos % (Auto) 0.0, Baso % (Auto) 0.2, Absolute Neuts (auto) 6.0, Absolute Lymphs (auto) 1.36, Nucleated RBC % 0 07/16/21 05:50: Sodium 140, Potassium 3.3 L, Chloride 110 H, Carbon Dioxide 24.0, Anion Gap 6, BUN 9, Creatinine 0.56 L, Estim Creat Clear Calc 227.89, Est GFR (MDRD) Af Amer 229, Est GFR (MDRD) Non-Af 189, BUN/Creatinine Ratio 16.2, Glucose 94, Calcium 7.8 L, Phosphorus 3.7, Magnesium 2.0 Micro: Microbiology 07/15/21 17:38 Nasal Secretion SARS-CoV-2 Antigen (Rapid) - Final Radiography Diagnostic Testing: Radiology Impression KUB X-Ray 07/15/21 13:53 IMPRESSION: Extremely large stool burden. Electronically Signed: Gerson Adams MD at 15:10 EST Tel , Service support , Abdomen/Pelvis CT 07/15/21 16:03 Physical Exam Const no apparent distress GI GI Narrative: Nondistended, soft to palpation, nontender x4 quadrants Assessment & Plan Assessment/Plan (1) Fecal impaction in rectum: PLAN: This is a 25-year-old male with severe constipation as above now status post manual disimpaction with general anesthetic. (2) Constipation: QUALIFIERS: Constipation type: chronic idiopathic constipation Qualified Code(s): K59.04 - Chronic idiopathic constipation PLAN: This is a 25-year-old male who presents with severe constipation concerning for underlying colonic dysmotility that would be more than expected with typical irritable bowel syndrome. He is postoperative day 1 from a manual disimpaction under general anesthetic. Post?procedure he was given 3 enemas and had a substantial volume of fecal output following these procedures as well. He expressed an appetite this morning and was advanced to a full liquid diet. He has no abdominal discomfort and his girth has returned to normal. I plan to keep him on a regimen of MiraLAX but will discontinue the enemas. Charges/Coding Visit Charges Inpatient E&M: 95425 Subs Hosp L2
[2021-07-16] MEDS: Potassium Chloride Oral Tablet 20 MEQ 40 MEQ PO (08:21)
[2021-07-16] MEDS: Potassium Chloride 10mEq/100mL 10 MEQ/100 ML IV.SOLN. 100 MEQ IV BOLUS ×2 (08:21→09:21)
[2021-07-16] MEDS: Polyethylene Glycol 3350 17 GM PACKET PO (09:21)
--- NOTE | 2021-07-16 16:07 | DCINST_ITS ---
Discharge Instructions Diet Discharge Diet: Soft diet Activity Discharge Activity: No Restrictions Follow Up Care Please Follow Up With: Robert Garcia MD When: 2 weeks Test Results: Test results from this visit will be discussed in further detail at your follow-up appointment, if applicable. Discharge Plan Admission Admit Date/Time: 07/15/21 21:05 Primary Reason for Your Visit: Severe constipation with fecal impaction Attending Provider: Robert Garcia Primary Care Provider: Shoaib Humphrey Instructions Patient Instructions: Treating Constipation, Treatment for Neurogenic Bowel Additional Instructions / Restrictions: 1. Please continue use of MiraLAX daily. If not having a bowel movement daily, advance to additional dose of MiraLAX and call [facility] at 2. Please keep to a soft diet for the first 1 week after hospitalization Discharge Orders/Prescriptions Prescriptions: No Action NK RF: 0 Referrals / Follow Up: Shoaib Humphrey MD [Primary Care Provider] -
== END 2021-07-16 16:29 | disposition home or self-care (01) ==
LOC: ED 17:11 → MS3 07-16 09:51
PROVIDERS: Admitting Provider Surgery; Emergency Provider Emergency Medicine; PCP Family Medicine; Visit Provider Surgery
PROC: (CPT 45915; principal; 2021-07-15 18:00)
DX: K56.41 Fecal impaction (principal)
CPT/HCPCS: 00902; 45915; 36415; 74018; 74176; 80048; 83605; 83735; 84100; 85025; 87426; 96361; 96374; 99218; 99284; J7030; G0378

== ENCOUNTER 2023-08-09 20:59 | Emergency (ER) | payer MEDICAID, SELFPAY ==
[2023-08-09 21:00] VITALS: BP 158/86; PULSE 96; RESP 15; TEMP 36.5; O2SAT 99; BMI 29.4
[2023-08-09 21:03] VITALS: BP 158/86; PULSE 96; RESP 15; TEMP 35.5; O2SAT 99
--- OUTSIDE RECORDS SUMMARY | 2023-08-09 21:39 | XMS RPT_ITS | CCD ---
Author Name Unknown Address [address] [place] [address] Organization [facility] Care Team Providers Care [employer] Name Role Phone Emily Mehta PA-C Primary Care Provider [phone] Unavailable Primary Care Provider Unavailabl e PROVIDER, UNKNOWN Referring Unavailable Marcela Jaramillo Attending Unavailable No, PCP Primary Care Unavailable Emily Mehta PA-C Primary Care Provider [phone] BEVERLY SARMIENTO MD Attending Unavailable DEIRDRE HUMPHREY MD Primary Care Unavailable Emily MEHTA Primary Care Unavailable RAJIV BERG Attending Unavailable Emily MEHTA Primary Care Unavailable SANDRA STOVALL Attending Unavailable Emily MEHTA Referring Unavailable Emily MEHTA Primary Care Unavailable Emily MEHTA Primary Care Unavailable Emily MEHTA Primary Care Unavailable RAJIV BERG Referring Unavailable Emily MEHTA Primary Care Unavailable Emily MEHTA Primary Care Unavailable OTIS RAJIV Referring Unavailable Emily MEHTA Primary Care Unavailable RAJIV BERG Referring Unavailable Allergies Allergy Classification Reported Allergen(s) Allergy Type Date of Onset Reaction(s) Facility (12 sources) Amoxicillin; Translations: [AMOXICILLIN] Drug Allergy 7 Rash [facility] Work Phone: (13 sources) Lactose; Translations: [LACTOSE] Drug Allergy 2 Other: See Comments, Diarrhea [facility] (12 sources) Seasonal allergy; Translations: [SEASONAL ALLERGIES] Allergy to substance 1 Other: See Comments [facility] Medications Completed/Discontinued Medications Medication Drug Class(es) Dates Sig (Normalized) Sig (Original) [id number] 200 actuat albuterol 0.09 mg/actuat metered dose inhaler (5 sources) beta2-Adrenergic Agonist Start: 08-23-2019 End: 03-16-2022 take 2 puff(s) by inhalation every four hours as needed albuterol HFA (PROAIR HFA) 90 mcg/actuation inhaler Inhale 2 Puffs as instructed every 4 hours as needed. 1 Inhaler 0 08/23/2019 03/16/2022 Discontinued (Course of therapy completed) Problems Active Problems Problem Classification Problem Date Documented Da te Episodic/Chronic Asthma (11 sources) Mild intermittent asthma; Translations: [Mild intermittent asthma, uncomplicated] Onset: 07-23-2009 03-03-2013 Chronic Attention-deficit, conduct, and disruptive behavior disorders (11 sources) Attention deficit hyperactivity disorder; Translations: [Attention deficit disorder with hyperactivity] Onset: 08-29-2009 08-29-2009 Chronic Cardiac dysrhythmias (1 source) Tachycardia; Translations: [Tachycardia, unspecified] Episodic Disorders of teeth and jaw (1 source) Toothache; Translations: [Other specified disorders of teeth and supporting structures] 04-06-2023 Episodic Disorders usually diagnosed in infancy, childhood, or adolescence (1 source) Attention deficit hyperactivity disorder, predominantly inattentive type; Translations: [Other specified behavioral and emotional disorders with onset usually occurring in childhood and adolescence] Chronic Other circulatory disease (2 sources) Elevated blood-pressure reading without diagnosis of hypertension; Translations: [Elevated blood-pressure reading, without diagnosis of hypertension] Episodic Other gastrointestinal disorders (12 sources) Irritable bowel syndrome; Translations: [Irritable bowel syndrome without diarrhea] Onset: 01-07-2011 01-07-2011 Chronic Other gastrointestinal disorders (15 sources) Constipation; Translations: [Outlet dysfunction constipation] Onset: 09-25-2014 09-25-2014 Episodic Other gastrointestinal disorders (1 source) Other constipation; Translations: [Other constipation] Onset: 03-25-2023 Episodic Substance-related disorders (1 source) Narcotic drug user; Translations: [Opioid use, unspecified, uncomplicated] Episodic Past or Other Problems Problem Classification Problem Date Documented Da te Episodic/Chronic Administrative/social admission (8 sources) Patient encounter status; Translations: [Persons encountering health services in other specified circumstances] Onset: 07-18-2021 07-18-2021 Episodic Genitourinary symptoms and ill-defined conditions (11 sources) Bilirubinuria; Translations: [Biliuria] Onset: 07-09-2014 07-09-2014 Episodic Headache; including migraine (20 sources) Headache; Translations: [Headache] Onset: 05-08-2009 05-08-2009 Episodic Other endocrine disorders (1 source) Disorder of endocrine system; Translations: [Other specified endocrine disorders] Onset: 03-31-2016 11-14-2017 Episodic Other gastrointestinal disorders (11 sources) Diarrhea; Translations: [Diarrhea, unspecified] Onset: 05-10-2009 06-27-2009 Episodic Other gastrointestinal disorders (3 sources) Functional disorder of intestine; Translations: [Functional intestinal disorder, unspecified] Onset: 07-18-2021 04-06-2023 Episodic Other non-traumatic joint disorders (11 sources) Joint pain; Translations: [Pain in unspecified joint] Onset: 09-17-2015 09-17-2015 Episodic Other upper respiratory disease (11 sources) Cyst of nasal sinus; Translations: [Cyst and mucocele of nose and nasal sinus] Onset: 05-10-2009 05-10-2009 Episodic Results Test Name Value Interpretation Reference Range Facil ity Vital Signs Date Time Vital Sign Value Performing Clinician Olivia travis 04-06-2023 12:59-0400 Body temperature 97.81 [degF] Wisam Augustin APRN.CNP Work Phone: [facility] 04-06-2023 12:59-0400 Body weight 114.31 kg Wisam Augustin APRN.CNP Work Phone: [facility] 04-06-2023 12:59-0400 Diastolic blood pressure 82 mm[Hg] Wisam Augustin APRN.CNP Work Phone: [facility] 04-06-2023 12:59-0400 Heart rate 88 /min Wisam Augustin APRN.CNP Work Phone: [facility] 04-06-2023 12:59-0400 Respiratory rate 16 /min Wisam Augustin APRN.CNP Work Phone: [facility] 04-06-2023 12:59-0400 SaO2% (BldA) [Mass fraction] 99 % Wisam Augustin [employer] Work Phone: [facility] 04-06-2023 12:59-0400 Systolic blood pressure 132 mm[Hg] Wisam Augustin APRN.[employer] BUILDER Work Phone: [facility] 02-21-2023 10:16-0400 Body height 188 cm Raijv Otis DO Work Phone: [facility] 02-21-2023 10:16-0400 Body temperature 97 [degF] Rajiv Otis DO Work Phone: [facility] 02-21-2023 10:16-0400 Body weight 107.05 kg Rajiv Otis DO Work Phone: [facility] 02-21-2023 10:16-0400 Diastolic blood pressure 89 mm[Hg] Rajiv Otis DO Work Phone: [facility] 02-21-2023 10:16-0400 Heart rate 78 /min Rajiv Otis DO Work Phone: [facility] 02-21-2023 10:16-0400 Respiratory rate 17 /min Rajiv Otis DO Work Phone: [facility] 02-21-2023 10:16-0400 SaO2% (BldA) [Mass fraction] 96 % Rajiv Otis DO Work Phone: [facility] 02-21-2023 10:16-0400 Systolic blood pressure 167 mm[Hg] Rajiv Otis DO Work Phone: [facility] 05-18-2022 22:00-0400 Diastolic blood pressure 85 mm[Hg] [facility] 05-18-2022 22:00-0400 Heart rate 90 /min [facility] 05-18-2022 22:00-0400 Respiratory rate 16 /min [facility] 05-18-2022 22:00-0400 SaO2% (BldA) [Mass fraction] 98 % [facility] 05-18-2022 22:00-0400 Systolic blood pressure 142 mm[Hg] [facility] 05-18-2022 19:47-0400 Body temperature 97.2 [degF] [facility] 05-18-2022 19:47-0400 Body weight 115.67 kg [facility] 03-16-2022 16:05-0400 Body weight 124.74 kg NA Mehta PA-C Work Phone: [facility] 03-16-2022 16:05-0400 Diastolic blood pressure 76 mm[Hg] NA Mehta PA-C Work Phone: [facility] 03-16-2022 16:05-0400 Heart rate 93 /min NA Mehta PA-C Work Phone: [facility] 03-16-2022 16:05-0400 Respiratory rate 16 /min NA Mehta PA-C Work Phone: [facility] 03-16-2022 16:05-0400 SaO2% (BldA) [Mass fraction] 97 % NA Mehta PA-C Work Phone: [facility] 03-16-2022 16:05-0400 Systolic blood pressure 140 mm[Hg] NA Mehta PA-C Work Phone: [facility] Encounters Encounter Date Encounter Type Care Provider Facility Start: 04-06-2023 End: 04-06-2023 ambulatory M FUAD MEHTA Facility:[facility] Start: 04-06-2023 End: 04-06-2023 Patient encounter procedure Wisam Augustin [employer] Work Phone: [facility] Care Procedures Date Procedure Procedure Detail Performing Clinician Start: 03-25-2023 Radiologic exam abdo men 1 view Rajiv Otis DO Work Phone: Start: 03-21-2023 Radiologic exam abdo men 1 view Rajiv Otis DO Work Phone: Start: 02-21-2023 ADULT UTAH ANORECTAL MANOMETRY Sandra Stovall [employer]DRAW HANDOrlandoL[employer] AND GATE BUILDER Work Phone: Start: 05-18-2022 Drug tst prsmv instr mnt chem analyzers pr date Marcela Jaramillo PA-C Work Phone: Start: 05-18-2022 Assay of ethanol Isac lidya Jaramillo PA-C Work Phone: Start: 05-18-2022 Comprehensive metabo lic panel Marcela Jaramillo PA-C Work Phone: Start: 03-16-2022 Drug tst prsmv instr mnt chem analyzers pr date Emily Merida Tyson BELTRAN Work Phone: Start: 11-02-2021 Adult depression scr eening assessment BANG NULL-C Work Phone: Start: 10-27-2016 Adult depression scr eening assessment BANG Sultanaon CHAKA-C Work Phone: Plan of Treatment Date Care Activity Detail Author Start: 04-08-2023 Influenza vaccination [facility] Start: 03-16-2023 ANNUAL PCP TEAM SCHOOL OFFICE MANAGER ITZEL DISEASE VISIT ANNUAL PCP TEAM CHRONIC DISEASE VISIT [facility] Start: 11-03-2022 ANNUAL PCP TEAM SCHOOL OFFICE MANAGER ITZEL DISEASE VISIT ANNUAL PCP TEAM CHRONIC DISEASE VISIT [facility] Start: 11-03-2022 HPV VACCINE (2 - Mal e 3-dose series) HPV VACCINE (2 - Male 3-dose series) [facility] Immunizations Immunization Date Immunization Notes Care Provider Shasta batres 03-03-2013 human papilloma viru s vaccine, quadrivalent BANG NULL-Brenna Work Phone: [facility] 03-03-2013 varicella virus vaccine BANG NULL-Brenna Work Phone: [facility] 04-14-2012 measles, mumps and rubella virus vaccine NA Mehta PA-C Work Phone: [facility] 04-14-2012 tetanus toxoid, redu hazel diphtheria toxoid, and acellular pertussis vaccine, adsorbed NA Tyson NULL-C Work Phone: [facility] 12-24-2010 Meningococcal, MCV4, unspecified conjugate formulation(groups A, C, Y and W-135) BANG NULL-C Work Phone: [facility] 12-24-2010 varicella virus vaccine NA B lizett NULL-C Work Phone: [facility] 05-10-2009 influenza virus vaccine, unspecified formulation NA Mehta PA-C Work Phone: [facility] Work Phone: 12-26-1996 haemophilus influenz ae type b vaccine, HbOC conjugate NA Mehta PA-C Work Phone: [facility] 12-26-1996 haemophilus influenz ae type b vaccine, PRP-OMP conjugate NA Mehta PA-C Work Phone: [facility] 12-26-1996 measles, mumps and rubella virus vaccine NA Mehta PA-C Work Phone: [facility] 12-26-1996 poliovirus vaccine, inactivated NA Mehta PA-C Work Phone: [facility] 12-26-1996 trivalent poliovirus vaccine, live, oral NA Mehta PA-C Work Phone: [facility] 01-18-1996 diphtheria, tetanus toxoids and acellular pertussis vaccine, unspecified formulation NA Mehta PA-C Work Phone: [facility] 01-18-1996 DTaP-Haemophilus influenzae type b conjugate vaccine NA Mehta PA-C Work Phone: [facility] 01-18-1996 haemophilus influenz ae type b vaccine, PRP-OMP conjugate NA Mehta PA-C Work Phone: [facility] 01-18-1996 poliovirus vaccine, inactivated NA Mehta PA-C Work Phone: [facility] 01-18-1996 trivalent poliovirus vaccine, live, oral NA Mehta PA-C Work Phone: [facility] 1995 diphtheria, tetanus toxoids and acellular pertussis vaccine, unspecified formulation NA Mehta PA-C Work Phone: [facility] 1995 DTaP-Haemophilus influenzae type b conjugate vaccine NA Mehta PA-C Work Phone: [facility] 1995 haemophilus influenz ae type b vaccine, PRP-OMP conjugate NA Mehta PA-C Work Phone: [facility] 1995 hepatitis B vaccine, pediatric or pediatric/adolescent dosage NA Mehta PA-C Work Phone: [facility] 1995 hepatitis B vaccine, unspecified formulation NA Mehta PA-C Work Phone: [facility] 1995 diphtheria, tetanus toxoids and acellular pertussis vaccine, unspecified formulation NA Mehta PA-C Work Phone: [facility] 1995 DTaP-Haemophilus influenzae type b conjugate vaccine NA Mehta PA-C Work Phone: [facility] 1995 haemophilus influenz ae type b vaccine, PRP-OMP conjugate NA Mehta PA-C Work Phone: [facility] 1995 hepatitis B vaccine, pediatric or pediatric/adolescent dosage NA Mehta PA-C Work Phone: [facility] 1995 poliovirus vaccine, inactivated NA Mehta PA-C Work Phone: [facility] 1995 trivalent poliovirus vaccine, live, oral NA Mehta PA-C Work Phone: [facility] 1995 hepatitis B vaccine, pediatric or pediatric/adolescent dosage NA Mehta PA-C Work Phone: [facility] Payers Date Payer Category Payer Medicaid [place] [employer] [employer] [id number] 2021-[facility] [phone] [address] [place] [address] Medicaid [id number] 2021 Medicaid [id number] 2021 Unknown [id number] 1995 Unknown [id number] 1995 Unknown [id number] Unknown Social History Date Type Detail Facility Start: 07-09-2011 End: 03-16-2022 Tobacco smoking status NHIS Smokes tobacco daily [facility] Start: 07-09-2011 History of tobacco use Smoker [facility] Start: 07-09-2014 End: 02-21-2023 Cigarettes smoked current (pack per day) - Reported 0.5 [facility] Start: 07-09-2014 End: 03-16-2022 Tobacco use and exposure Smokeless tobacco non-user [facility] Start: 09-11-2021 End: 02-21-2023 Alcohol intake Current non-drinker of alcohol (finding) [facility] Start: 1995 Sex Assigned At Not on file C [facility] Start: 11-03-2021 History SDOH Social Connections Phone 4 [facility] Start: 11-03-2021 History SDOH Social Connections Orthodox 1 [facility] Start: 11-03-2021 History SDOH Social Connections Membership 2 [facility] Start: 11-03-2021 History SDOH Social Connections Living 3 [facility] Start: 11-03-2021 History SDOH Physica l Activity DPW 0 [facility] Start: 1995 Sex Assigned At Male C [facility] Start: 07-09-2011 History of tobacco use Cigarette Smo ker [facility] Start: 05-18-2022 Alcohol intake Ex-drinker (finding) [employer] Work Phone: Start: 05-08-2022 End: 05-18-2022 Exposure to SARS-CoV-2 (event) Not sure [employer] Work Phone: Start: 11-02-2021 End: 02-21-2023 Social connection and isolation panel [facility] Do you belong to any clubs or organizations such as moravian groups, unions, fraternal or athletic groups, or school groups? No [facility] Are you now , , , , never or living with a partner? [facility] How often to you hav e a drink containing alcohol? Patient refused [facility] Do you feel stress - tense, restless, nervous, or anxious, or unable to sleep at night because your mind is troubled all the time - these days [OSQ] To some extent [facility] (I/We) worried wheth er (my/our) food would run out before (I/we) got money to buy more. DK or Refused [facility] Start: 11-02-2021 Gender identity Identifies as male gender (finding) [facility] Clinical Notes 03-31-2016 to 04-06-2023 Yevgeniy Augustin MD - 04/06/2023 1:09 PM Leesa Alberto RT(R) - 03/25/2023 11:00 AM Leesa Alberto RT(R) - 03/21/2023 11:00 AM Rajiv Bucio DO - 02/21/2023 11:00 AM EDT Note Date & Type Note Facility 04-06-2023 Note HNO ID: [id number] Author: Yevgeniy Augustin MD Service: ? Author Type: Physician Type: Progress Notes Filed: 04/06/2023 1:39 PM Note Text: Patient presents with: Dental Problem: tooth pain and headaches ongoing HPI: Left face pain: Duration: couple weeks Location: left upper teeth Character: shooting and throbbing Radiation: left cheek, nose, and forehead Aggravating: chewing Relieving: Pain relievers: Motrin and oragel Associated: tooth decay, lost 2 teeth (bilateral lateral incisors a few weeks ago) Pertinent negatives: Denies fever, numbness, weakness MEDICATIONS: metoprolol succinate ER (TOPROL XL) 25 mg 24 hr tablet 25 mg. guaiFENesin (MUCINEX) 600 mg 12 hr tablet Take 2 tablets by mouth twice daily. (Patient not taking: Reported on 02/21/2023) amphetamine-dextroamphetamine XR (ADDERALL XR) 30 mg 24 hr capsule Take 1 capsule by mouth once daily for 30 days. (Patient not taking: Reported on 02/21/2023) Blood Pressure Test Kit-Large (BPM 2 ADVANCED BP MONITOR) 1 Each once daily. (Patient not taking: Reported on 11/28/2022) ALLERGIES: ALLERGIES Allergen Reactions Amoxil [Amoxicillin] Rash Lactose Other: See Comments Seasonal Allergies Other: See Comments Sneezing, itchy watery eyes VITALS: BP 132/82 Pulse 88 Temp 36.6 ?C (97.8 ?F) Resp 16 Wt 114.3 kg (252 lb) SpO2 99% BMI 32.35 kg/m? PHYSICAL EXAM: GEN: pleasant, tired appearing, no acute distress HEENT: PERRL, EOMI, MMM, TMs without erythema bulge or effusion Mouth: Extensive dental erosion and decay. Sinuses: Pressure over left maxillary and frontal sinuses NECK: supple, no lymphadenopathy, no thyromegaly HEART: regular rate, regular rhythm, no murmurs LUNGS: clear to auscultation, no wheezes or crackles, no increased WOB EXT: no clubbing, no cyanosis, no edema ASSESSMENT/PLAN: 1. Toothache - ICD9: 525.9, ICD10: K08.89 (primary diagnosis) 2. Headache, unspecified headache type - ICD9: 784.0, ICD10: R51.9 He had an ER evaluation last week with CT scan. Distribution of left mid to upper face headache may not be directly related to dental infection. Trial - AMOXICILLIN 875 MG TABLET. He recalls no adverse events with amoxicillin. There is no documentation of anaphylaxis in the chart. Amoxicillin if he develops rash, throat swelling, dizziness, or difficulty breathing. His soonest available dentist appointment is in June. Continue as needed analgesia. 3. Elevated blood pressure reading without diagnosis of hypertension - ICD9: 796.2, ICD10: R03.0 Prescribed metoprolol in the emergency room for elevated blood pressure. Scheduled ER follow-up with PCP tomorrow. Yevgeniy Augustin MD [facility] 04-06-2023 History of Presen t illness Narrative Patient presents with: Dental Problem: tooth pain and headaches ongoing HPI: Left face pain: Duration: couple weeks Location: left upper teeth Character: shooting and throbbing Radiation: left cheek, nose, and forehead Aggravating: chewing Relieving: Pain relievers: Motrin and oragel Associated: tooth decay, lost 2 teeth (bilateral lateral incisors a few weeks ago) Pertinent negatives: Denies fever, numbness, weakness MEDICATIONS: metoprolol succinate ER (TOPROL XL) 25 mg 24 hr tablet 25 mg. guaiFENesin (MUCINEX) 600 mg 12 hr tablet Take 2 tablets by mouth twice daily. (Patient not taking: Reported on 02/21/2023) amphetamine-dextroamphetamine XR (ADDERALL XR) 30 mg 24 hr capsule Take 1 capsule by mouth once daily for 30 days. (Patient not taking: Reported on 02/21/2023) Blood Pressure Test Kit-Large (BPM 2 ADVANCED BP MONITOR) 1 Each once daily. (Patient not taking: Reported on 11/28/2022) ALLERGIES: ALLERGIES Allergen Reactions Amoxil [Amoxicillin] Rash Lactose Other: See Comments Seasonal Allergies Other: See Comments Sneezing, itchy watery eyes VITALS: BP 132/82 Pulse 88 Temp 36.6 C (97.8 F) Resp 16 Wt 114.3 kg (252 lb) SpO2 99% BMI 32.35 kg/m PHYSICAL EXAM: GEN: pleasant, tired appearing, no acute distress HEENT: PERRL, EOMI, MMM, TMs without erythema bulge or effusion Mouth: Extensive dental erosion and decay. Sinuses: Pressure over left maxillary and frontal sinuses NECK: supple, no lymphadenopathy, no thyromegaly HEART: regular rate, regular rhythm, no murmurs LUNGS: clear to auscultation, no wheezes or crackles, no increased WOB EXT: no clubbing, no cyanosis, no edema ASSESSMENT/PLAN: 1. Toothache - ICD9: 525.9, ICD10: K08.89 (primary diagnosis) 2. Headache, unspecified headache type - ICD9: 784.0, ICD10: R51.9 He had an ER evaluation last week with CT scan. Distribution of left mid to upper face headache may not be directly related to dental infection. Trial - AMOXICILLIN 875 MG TABLET. He recalls no adverse events with amoxicillin. There is no documentation of anaphylaxis in the chart. Amoxicillin if he develops rash, throat swelling, dizziness, or difficulty breathing. His soonest available dentist appointment is in June. Continue as needed analgesia. 3. Elevated blood pressure reading without diagnosis of hypertension - ICD9: 796.2, ICD10: R03.0 Prescribed metoprolol in the emergency room for elevated blood pressure. Scheduled ER follow-up with PCP tomorrow. Yevgeniy Augustin MD documented in this encounter [facility] 03-25-2023 Note HNO ID: [id number] Author: Leesa Grace RT(Sloan) Service: ? Author Type: Technologist Type: Progress Notes Filed: 03/25/2023 12:06 PM Note Text: Radiology Service Progress Note PATIENT NAME: Javier Vasquez DATE OF SERVICE: March 25, 2023 TIME: 12:05 PM PATIENT IDENTITY VERIFICATION COMPLETED USING TWO (2) IDENTIFIERS: Name and Date of confirmed by patient verbally. FALL SCREENING: Has the patient had 2 falls in the last year or 1 fall with injury or currently using an Ambulatory Assistive Device (Walker, Cane, Wheelchair, Crutches, etc.)? No PATIENT GENDER DATA: Male PATIENT RELEVANT IMPLANT DATA REVIEWED: Not Applicable RADIOLOGY DEPARTMENT: General X-ray: Exam(s) Completed: Abdomen X-Ray: Abdomen, DAY 3 PERIPHERAL IV DATA: Not applicable SIGNED BY: RT Linda(Sloan) March 25, 2023 12:05 PM [facility] 03-25-2023 History of Presen t illness Narrative Radiology Service Progress Note PATIENT NAME: Javier Vasquez DATE OF SERVICE: March 25, 2023 TIME: 12:05 PM PATIENT IDENTITY VERIFICATION COMPLETED USING TWO (2) IDENTIFIERS: Name and Date of confirmed by patient verbally. FALL SCREENING: Has the patient had 2 falls in the last year or 1 fall with injury or currently using an Ambulatory Assistive Device (Walker, Cane, Wheelchair, Crutches, etc.)? No PATIENT GENDER DATA: Male PATIENT RELEVANT IMPLANT DATA REVIEWED: Not Applicable RADIOLOGY DEPARTMENT: General X-ray: Exam(s) Completed: Abdomen X-Ray: Abdomen, DAY 3 PERIPHERAL IV DATA: Not applicable SIGNED BY: RT Linda(Sloan) March 25, 2023 12:05 PM documented in this encounter [facility] 03-23-2023 Note HNO ID: [id number] Author: Nissa Monzon RT(Sloan) Service: Radiology Author Type: Technologist Type: Progress Notes Filed: 03/23/2023 11:30 AM Note Text: Radiology Service Progress Note PATIENT NAME: Javier Vasquez DATE OF SERVICE: March 23, 2023 TIME: 11:21 AM PATIENT IDENTITY VERIFICATION COMPLETED USING TWO (2) IDENTIFIERS: Name and Date of confirmed by patient verbally. FALL SCREENING: Has the patient had 2 falls in the last year or 1 fall with injury or currently using an Ambulatory Assistive Device (Walker, Cane, Wheelchair, Crutches, etc.)? No PATIENT GENDER DATA: Male PATIENT RELEVANT IMPLANT DATA REVIEWED: Not Applicable RADIOLOGY DEPARTMENT: colonic study PERIPHERAL IV DATA: Not applicable SIGNED BY: RT Thom(R) March 23, 2023 11:21 AM [facility] 03-21-2023 Note HNO ID: [id number] Author: Leesa Grace RT(R) Service: ? Author Type: Technologist Type: Progress Notes Filed: 03/21/2023 11:34 AM Note Text: Radiology Service Progress Note PATIENT NAME: Javier Vasquez DATE OF SERVICE: March 21, 2023 TIME: 11:33 AM PATIENT IDENTITY VERIFICATION COMPLETED USING TWO (2) IDENTIFIERS: Name and Date of confirmed by patient verbally. FALL SCREENING: Has the patient had 2 falls in the last year or 1 fall with injury or currently using an Ambulatory Assistive Device (Walker, Cane, Wheelchair, Crutches, etc.)? No PATIENT GENDER DATA: Male PATIENT RELEVANT IMPLANT DATA REVIEWED: Not Applicable RADIOLOGY DEPARTMENT: General X-ray: Exam(s) Completed: Abdomen X-Ray: Abdomen, DAY 1 PERIPHERAL IV DATA: Not applicable SIGNED BY: Leesa Grace RT(R) March 21, 2023 11:33 AM [facility] 03-21-2023 History of Presen t illness Narrative Radiology Service Progress Note PATIENT NAME: Javier Vasquez DATE OF SERVICE: March 21, 2023 TIME: 11:33 AM PATIENT IDENTITY VERIFICATION COMPLETED USING TWO (2) IDENTIFIERS: Name and Date of confirmed by patient verbally. FALL SCREENING: Has the patient had 2 falls in the last year or 1 fall with injury or currently using an Ambulatory Assistive Device (Walker, Cane, Wheelchair, Crutches, etc.)? No PATIENT GENDER DATA: Male PATIENT RELEVANT IMPLANT DATA REVIEWED: Not Applicable RADIOLOGY DEPARTMENT: General X-ray: Exam(s) Completed: Abdomen X-Ray: Abdomen, DAY 1 PERIPHERAL IV DATA: Not applicable SIGNED BY: RT Linda(R) March 21, 2023 11:33 AM documented in this encounter [facility] 02-21-2023 History and physical note Images from the original note were not included. COLORECTAL SURGERY PELVIC FLOOR CLINIC February 21, 2023 Javier Vasquez 27 year old This consult was requested by Dr. Robert Garcia and my final recommendations will be communicated to the requesting health care provider by way of the shared medical record for internal providers or letter via the [employer] for external providers. Chief Complaint: Constipation History of Present Illness: Javier Vasquez is a 27 year old year old male with constipation that began when he was in 8th grade. Does not take any anti-anxiety medication. First episode of constipation was at 15 yo, explosive diarrhea, was impacted , overflow diarrhea. He was started on 2 stool softners, MOM. Got better . Then constipation came back. Saw Dr. Bustillo in 2016 In HS started home schooling because was missing school for constipation. Required disimpaction several times Mom has constipation as well Still has joint pains and migranes, but mostly bothered by leg pain -- restless, thighs get really tight and tender, legs give out when walking. Back pain, tight in the back Never done PFPT He is only on miralax now, 2-3 caps a day. Softens his stools. Not on any specific diet, lactose intoilerant, does have pizza, dairy constiipates him. NO surgery abdominal or perineal Works at [email or web address] . Has 3 kids( 4,3,1 YO) . Comes to appointment with mom Alexandra . When was in the hospital , did not take enough miralax , fell behind which lead to fecal impaction Drinks 3-4 20 oz bottles of water a day GI Symptoms: Stool frequency: 1 every 3-4 days Stool type: Type 3: Like a sausage but with cracks on it's surface Type 4: Like a sausage or snake, smooth and soft Stool straining: mild straining, a lot if rans out of miralax Frequency of straining: usually Incomplete evacuation: usually Use of enemas or laxatives: rarely Abdominal pressure/pain: usually, only when backed up. Sharp pains Feelings of prolapse : No Do you have accidental bowel leakage, fecal incontinence, or urgency with bowel movements? Yes Able to pass gas, sometimes hard , needs to move or lay on the stomach to pass gas . Needs to strain to pass gas Once starts having Bms , goes multiple time. Passes tremendious amount of gas before moves BM Eating ok, good attetite, no nausea or emesis Occasional accidents with over flow , never happens at night, small amount of leakage Prior pelvic surgery?: no What bowel related medications do you take now? Miralax What medications have you tried in the past? MOM , stool softners Previous trial of biofeedback: No Urinary Symptoms: When constipated -- hard to get the bladder empty Previous Testing Results include: Colonoscopy: Y Date:lomg time ago , can not remember - Manometry: today Defecography: No Manometry : Average Pressure Interpretation Rest: 33 mmHg This is below normal range. Normal range is 35-50 mmHg. Squeeze: 95 mmHg This is within normal range. Normal range is 75 - 100 mmHg. Resting and squeeze pressures well above normal may indicate high pelvic floor tension. There is appropriate incremental change between resting and squeeze pressures which can indicate good pelvic floor movement with squeeze. Sensory: Sensation Volume First sensation : 25 mL / Normal Range: 40-80 mL First urge to defecate: 50 mL / Normal Range: 80-120 mL Maximum tolerable volume: 300 mL / Normal Range: 120-180 mL Recto-anal inhibitory reflex: Yes Balloon expulsion: No Maximum tolerable volume notes blunted sensation. A recto-anal inhibitory reflex (RAIR) was present. This is a normal reflex. EMG Recruitment: EMG recruitment was performed. The patient shows a normal increase in activity with squeeze, and a paradoxic increase in activity with valsalva. This indicates abnormal pelvic floor movement, which can be indicative of poor pelvic floor coordination secondary to pelvic floor dyssynergia or pelvic organ prolapse. PAST MEDICAL HISTORY Diagnosis Date IBS (irritable bowel syndrome) Other specified endocrine disorders 03/31/2016 PAST SURGICAL HISTORY Procedure Laterality Date ELBOW RIGHT OP SURGERY 2012 REMOVE TONSIL AND ADENOI UNDER AGE 12 Current Outpatient Medications Medication Sig Dispense Refill guaiFENesin (MUCINEX) 600 mg 12 hr tablet Take 2 tablets by mouth twice daily. (Patient not taking: Reported on 02/21/2023) 30 tablet 0 amphetamine-dextroamphetamine XR (ADDERALL XR) 30 mg 24 hr capsule Take 1 capsule by mouth once daily for 30 days. (Patient not taking: Reported on 02/21/2023) 30 capsule 0 Blood Pressure Test Kit-Large (BPM 2 ADVANCED BP MONITOR) 1 Each once daily. (Patient not taking: Reported on 11/28/2022) 1 Each 0 No current facility-administered medications for this visit. ALLERGIES Allergen Reactions Amoxil [Amoxicillin] Rash Lactose Other: See Comments Seasonal Allergies Other: See Comments Sneezing, itchy watery eyes FAMILY HISTORY Problem Relation Age of Onset GI Mother reconstructed colon surgery x2 Cancer Maternal Grandfather adrenal cancer with METS to colon Colon Cancer Other colon cancer Social History Tobacco Use Smoking status: Every Day Packs/day: 0.50 Types: Cigarettes Start date: 07/09/2011 Smokeless tobacco: Never Substance Use Topics Alcohol use: No Drug use: No FUNCTIONAL STATUS: independent Review of Systems: GENERAL: No weight loss, malaise or fevers RESPIRATORY: Negative for cough, hemoptysis, wheezing, COPD, dyspnea or shortness of breath CARDIOVASCULAR: Hypertension GI: Constipation : No history of dysuria, frequency or incontinence MASTER PILOT: NA MUSCULOSKELETAL: back pain SKIN: Negative for lesions, rash, and itching PSYCH: Negative for sleep disturbance, mood disorder and recent psychosocial stressors HEMATOLOGY/LYMPHOLOGY: Negative for prolonged bleeding, bruising easily or swollen nodes ENDOCRINE: Negative for cold or heat intolerance, polyuria, polydipsia and goiter NEURO: No history of headaches, syncope, paralysis, seizures or tremors ANEMIA: Yes, VIT B 12 deficient A 12 point review of systems was performed. All other systems are negative, other than stated above and HPI. Physical Exam: 02/21/23 1016 BP: 167/89 BP Site: Right Arm Pulse: 78 Resp: 17 Temp: 36.1 C (97 F) TempSrc: Temporal SpO2: 96% Weight: 107 kg (236 lb) Height: 188 cm (6' 2 ) General Appearance: Well appearing, alert, in no acute distress, well-hydrated, well nourished. Psych: ORIENTATION: normal to time place, person and situation AFFECT AND MOOD: Anxious Skin: Skin color, texture, turgor normal, no suspicious rashes or lesions Head: Normocephalic, no masses, lesions, tenderness or abnormalities Oropharynx: Lips, mucosa, and tongue normal, teeth and gums normal, oropharynx normal Lungs: Unlabored on room air Heart: Not examined Edema: no Extremities: No deformities, edema, skin discoloration, clubbing or cyanosis. Good capillary refill. Musculoskeletal: no weakness, no balance deficits, no coordination deficitsGAIT: Normal ASSIST DEVICE: None Neuro: normal memory CNII-XII grossly intact. Abdomen: Normal abdominal exam, mild tenderness on the right, hard stool in the colon Anorectal: Perianal skin is intact. No erythema, induration or excoriation. No fissure, fistula or external hemorrhoids. Digital Rectal Exam: Anus: closed Resting tone: NORMAL Squeeze tone: NORMAL Valsalva: pelvic floor relaxation is Normal. Paradox: No Puborectalis: non tender Rectocele: Absent Perineal descent: no Commode Exam: n/a Long anal canal , no hemorrhoids, no paradox, tensed up to bear down. Anoscopy: The patient was placed in left lateral position. After digital exam with a lubricated finger, the scope was not easily inserted. Mildly enlarged right posterior, right anterior, and left lateral internal hemorrhoids were noted. Otherwise normal mucosa was noted. Anoscopy completed. Diagnostic tests reviewed for today's visit: Anorectal physiology All outside imaging and records were reviewed with the patient during consultation. Assessment Assessment and Plan: Javier Vasquez is a 27 year old with constipation Sitz 2 capsules Defecography DD pshych Dr. Rick for constipation optimization Virtual follow up to review results We discussed that surgical management for constipation is the last resort, he needs medical optimization and possibly PFPT. He does have RAIR and based on history very unlikely has short segment hirschprungs disease. Will make a decision for biopsy based on above studies. Rajiv Berg, DO Pelvic Floor Colorectal Surgery Time Spent: 60 minutes, >50% of the time was spent in counseling and coordination of care. Specifically, 45 min were spent in reviewing outside records with the patient and discussing these findings and their symptoms, reviewing colonoscopy and pathology reports, reviewing manometry and EMG results, reviewing defecography images, reviewing physical exam findings and discussing surgical and non-surgical treatment options. documented in this encounter [facility] 11-28-2022 Note HNO ID: [id number] Author: Dianna Jones APRN.[employer] Service: ? Author Type: Nurse Practitioner Type: Progress Notes Filed: 11/28/2022 1:51 PM Note Text: This note was created using Pen[employer]. Subjective Javier Vasquez is a 27 year old male. 27 year old male with PMH asthma, IBS and ADD presents for complaints of illness. Acute onset 5 days ago +body aches +fatigue +nasal congestion +chills + cough States his mom tested POSITIVE for flu today. States he lives with her. Denies SOB or dyspnea. Denies CP. Denies hemoptysis. Denies abdominal pain. States yesterday he started to feel better. Presents today with concerns related to the congestion. Has tried Ibuprofen and cough medicines. Denies tobacco usage. The history is provided by the patient. No hourly sign language interpreter was used. Cough This is a new problem. The current episode started more than 2 days ago. The problem occurs constantly. The problem has not changed since onset.The cough is Non-productive. The maximum temperature recorded prior to his arrival was 100 to 100.9 F. Associated symptoms include chills, ear congestion, headaches, rhinorrhea, sore throat and myalgias. Pertinent negatives include no chest pain, no sweats, no weight loss, no ear pain, no shortness of breath, no wheezing and no eye redness. He has tried cough syrup for the symptoms. The treatment provided mild relief. Risk factors: exposure to influenza. He is not a smoker. His past medical history is significant for asthma. His past medical history does not include bronchitis, pneumonia, bronchiectasis, COPD or emphysema. PAST MEDICAL HISTORY Diagnosis Date IBS (irritable bowel syndrome) Other specified endocrine disorders 03/31/2016 PAST SURGICAL HISTORY Procedure Laterality Date ELBOW RIGHT OP SURGERY 2012 REMOVE TONSIL AND ADENOI UNDER AGE 12 ALLERGIES Amoxil [Amoxicillin], Lactose, and Seasonal Allergies MEDICATIONS guaiFENesin (MUCINEX) 600 mg 12 hr tablet Take 2 tablets by mouth twice daily. amphetamine-dextroamphetamine XR (ADDERALL XR) 30 mg 24 hr capsule Take 1 capsule by mouth once daily for 30 days. Blood Pressure Test Kit-Large (BPM 2 ADVANCED BP MONITOR) 1 Each once daily. (Patient not taking: Reported on 11/28/2022) FAMILY HISTORY Problem Relation Age of Onset GI Mother reconstructed colon surgery x2 Cancer Maternal Grandfather adrenal cancer with METS to colon Colon Cancer Other colon cancer Social History Tobacco Use Smoking status: Every Day Packs/day: 0.50 Types: Cigarettes Start date: 07/09/2011 Smokeless tobacco: Never Substance Use Topics Alcohol use: No Drug use: No Review of Systems Constitutional: Positive for chills, fatigue and fever. Negative for weight loss. HENT: Positive for congestion, postnasal drip, rhinorrhea and sore throat. Negative for ear pain. Eyes: Negative for pain, discharge, redness and itching. Respiratory: Positive for cough. Negative for shortness of breath and wheezing. Cardiovascular: Negative for chest pain, palpitations and leg swelling. Gastrointestinal: Negative for abdominal pain, diarrhea, nausea and vomiting. Musculoskeletal: Positive for myalgias. Negative for arthralgias, back pain and gait problem. Skin: Negative for color change, pallor, rash and wound. Allergic/Immunologic: Positive for environmental allergies. Negative for food allergies and immunocompromised state. Neurological: Positive for headaches. Hematological: Negative for adenopathy. Does not bruise/bleed easily. Psychiatric/Behavioral: Negative for agitation and behavioral problems. Objective BP 140/80 Pulse 77 Temp 36.7 ?C (98 ?F) Resp 18 Wt 115.2 kg (254 lb) SpO2 98% BMI 33.81 kg/m? Physical Exam Vitals and nursing note reviewed. Constitutional: General: He is not in acute distress. Appearance: Normal appearance. He is not ill-appearing, toxic-appearing or diaphoretic. HENT: Head: Normocephalic and atraumatic. Right Ear: External ear normal. Left Ear: External ear normal. Nose: Congestion present. No rhinorrhea. Mouth/Throat: Mouth: Mucous membranes are moist. Pharynx: Oropharynx is clear. No oropharyngeal exudate or posterior oropharyngeal erythema. Eyes: General: Right eye: No discharge. Left eye: No discharge. Extraocular Movements: Extraocular movements intact. Conjunctiva/sclera: Conjunctivae normal. Pupils: Pupils are equal, round, and reactive to light. Cardiovascular: Rate and Rhythm: Normal rate and regular rhythm. Pulses: Normal pulses. Heart sounds: Normal heart sounds. No murmur heard. No friction rub. No gallop. Pulmonary: Effort: Pulmonary effort is normal. No respiratory distress. Breath sounds: Normal breath sounds. No stridor. No wheezing, rhonchi or rales. Chest: Chest wall: No tenderness. Abdominal: General: Abdomen is flat. There is no distension. Palpations: Abdomen is soft. There is n (more content not included)... [facility] 05-18-2022 Hospital Discharg e instructions Marcela Jaramillo PA-C - 05/18/2022 10:26 PM EDT Be sure to attend appointment tomorrow with provider at [facility] to continue suboxone therapy. [facility] encounter [facility] Work Phone: 03-19-2022 Miscellaneous Notes Patient was advised on positive findings on urine drug screening and pain panel with cannabinoids and fentanyl metabolites. Patient apologized for being dishonest on direct questioning. Explained to him that we cannot continue scheduled 2 medications. Patient has current prescription which she can use and see if it helps, will discuss noncontrolled substance options at his follow-up which she agreed to complete, and discuss further his history of drug use. Kaushik Mehta PA-C documented in this encounter [facility] 03-16-2022 Instructions Emily Mehta PA-C - 03/16/2022 4:55 PM EDT ADDERALL ORAL AMPHETAMINE WITH DEXTROAMPHETAMINE - ORAL TABLET (ab-VGS-gy-meen WITH ooa-wjed-nj-FET-uh-meen) COMMON BRAND NAME: Adderall USES: This medication stimulates nerve cells in the brain. It is used to treat narcolepsy. It is also used in persons with an attention deficit disorder who show signs of hyperactivity. HOW TO TAKE THIS MEDICATION: It is best to take this medication early in the day to prevent trouble sleeping at night. Use this medication exactly as prescribed. Do not increase your dose, take it more frequently or use it for a longer period of time than prescribed. Also, if used for an extended period of time, do not suddenly stop using this drug without your doctor's approval. Rarely, when this medication is used for an extended period, this medication may not work as well and may require different dosing. Talk with your doctor if this medication stops working well. In attention deficit disorder, your doctor may recommend drug holidays where the medication is stopped temporarily and behavior is evaluated. This will help the doctor decide if this medication needs to be continued. SIDE EFFECTS: Nausea, stomach upset, cramps, loss of appetite, diarrhea, constipation, dry mouth, headache, nervousness, dizziness, sleep problems, irritability or restlessness may occur the first several days as your body adjusts to the medication. This medication may be taken with food to help minimize stomach upset. Other side effects reported include rapid pounding heart rate, rapid pulse, twitching, sweating, flushing, muscle tremor, mood changes or change in sexual desire or ability. If any of these effects continue or become bothersome, inform your doctor. Notify your doctor if you develop chest pain or psychological problems while taking this medication or if you feel the drug is losing its effectiveness. This medication causes dizziness and can affect alertness. Use caution driving or operating machinery while taking this medication. If you notice other effects not listed above, contact your doctor or pharmacist. PRECAUTIONS: In individuals with a history of substance abuse, this medication can be habit forming. It is important that this medication not be shared with such individuals. Alcohol can increase unwanted side effects of dizziness. Avoid alcohol use. Fruit juices and other acidic substances may reduce the absorption of this drug. Tell your doctor your complete medical history especially if you have high blood pressure or heart disease, an over-active thyroid, glaucoma, diabetes or are emotionally unstable as another medicine may be more appropriate for you. Avoid extensive use of stimulant drugs that may increase your heart rate such as decongestants or caffeine. Decongestants are commonly found in kkjy-mam-ahvbrez lepqt-qiu-jajl medicine. Contact your doctor if you need to use an agpz-tcr-zjwsndy cold medication. This medication must be used only if clearly needed during . Discuss the risks and benefits with your doctor. Because small amounts of this medication appear in breast milk, breast-feeding is not recommended while taking this medicine. DRUG INTERACTIONS: Inform your doctor about all the medicines you use especially if you take high blood pressure medicine or MAO inhibitors (e.g., furazolidone, phenelzine, selegiline, tranylcypromine), vitamin C, meperidine, digoxin, certain anti-depressants (tricyclics) and of any other drugs you use (both prescription and nonprescription). Do not start or stop any medicine without doctor or pharmacist approval. NOTES: Although this medication is often referred to as a stimulant, it is not effective and even dangerous and illegal to use this to try to improve athletic performance, mental alertness or to stay awake. Use this medication only as directed. It is important to keep this and all medications out of the reach of children. Never share medications with anyone. MISSED DOSE: If you miss a dose, take as soon as remembered; do not take if it is almost time for the next dose, instead, skip the missed dose and resume your usual dosing schedule. Do not double-up the dose to catch up. STORAGE: Store at room temperature away from sunlight and moisture. documented in this encounter [facility] 03-16-2022 History of Presen t illness Narrative 26 year old male with c/o asking to restart Adderall. Was on medication through high school for ADD. Focus is lacking, can't keep his concentration. Feels not at full potential. complains about his forgetfulness. 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 Has had a lot of jobs from his own choice to leave. Trying to find something he enjoys doing. Has had some complaints in past by employers Good driving record: no speeding tickets or accidents. Caffeine 3 x 20oz bottles Mt Dew, Pepsi Smokes 1PPD ETOH Marijuana: none Other illicit drugs: none HISTORIES FAMILY HISTORY Problem Relation Age of Onset GI Mother reconstructed colon surgery x2 Cancer Maternal Grandfather adrenal cancer with METS to colon Colon Cancer Other colon cancer PAST MEDICAL HISTORY Diagnosis Date IBS (irritable bowel syndrome) Other specified endocrine disorders 03/31/2016 PAST SURGICAL HISTORY Procedure Laterality Date ELBOW RIGHT OP SURGERY 2012 REMOVE TONSIL AND ADENOI UNDER AGE 12 Social History Tobacco Use Smoking status: Every Day Packs/day: 0.50 Types: Cigarettes Start date: 07/09/2011 Smokeless tobacco: Never Substance Use Topics Alcohol use: No Drug use: No ACTIVE PROBLEM LIST Headache(784.0) Diarrhea Retention Cyst of Nasal Sinus Asthma, Mild Intermittent Add (Attention Deficit Disorder With Hyperactivity) Ibs (Irritable Bowel Syndrome) Bilirubinuria Constipation Due to Outlet Dysfunction Pain in Joint Frequent Headaches Encounter for Support and Coordination of Transition of Care Current Outpatient Medications Medication Sig Dispense Refill Blood Pressure Test Kit-Large (BPM 2 ADVANCED BP MONITOR) 1 Each once daily. 1 Each 0 No current facility-administered medications for this visit. HEPATITIS B(4 of 4 - 4-dose series) due on 03/18/1996 COVID-19 VACCINE(1) Never done PNEUMOCOCCAL(1 - PCV) Never done HIV SCREENING Never done DTAP,TDAP,TD(5 - Td or Tdap) due on 04/14/2022 EXAM: BP 140/76 Pulse 93 Resp 16 Wt 124.7 kg (275 lb) SpO2 97% BMI 36.61 kg/m Pleasant overweight young man in no acute distress. Alert and oriented all spheres. Normal affect and cognition. Speech normal. No deficits to learning or comprehension. Skin warm, dry, pink to lips and nailbeds. Normal turgor. Respirations regular and unlabored. Chest is normal shape. Lungs are clear to all rodriges with good air exchange through out. HRRR without murmur or gallop. No lifts, heaves, or rubs. Extrem: no clubbing or cyanosis. Edema: none. Extremities are warm and pink with prompt capillary refill. ASSESSMENT/PLAN: 1. Attention deficit disorder (ADD) without hyperactivity - ICD9: 314.00, ICD10: F98.8 Reviewed medication side effects, controlled substance rules - DEXTROAMPHETAMINE-AMPHETAMINE ER 30 MG 24HR CAPSULE,EXTEND RELEASE - TOX SCREEN ROUT UR - PAIN PANEL, UR QUANT - PAIN PANEL, UR QUANT - SPECIMEN VALIDITY, URINE F/u 4 weeks. M Fuad Mehta PA-C Some of this note may have been copied and pasted for the purpose of history context and comparison. documented in this encounter [facility] 02-04-2022 Miscellaneous Notes Patient was notified Patricia Ayon Ma Telephone on 02/04/22 CBC BASIC METABOLIC PNL TSH BLD Kaushik Messer PA-C Patient reports he went to do lab draws, pcp ordered in October (couldn't go then, transportation issues). The lab told patient the orders ? Patient reports it was a CBC, BMP, TSH. Asking if pcp would write new orders? Pended. Please let patient know when ok to go to lab. documented in this encounter [facility] 11-13-2021 Miscellaneous Notes Patient returned call and went over notes below from Kaushik NULL with understanding. Patient wrote down names of otc items listed. Left message for patient to return call. Zandra Dick Ma Please explain insurance won't cover without documented trial of 2 other options. He has completed trial with Miralax: polyethylene glycol. He needs to try psyllium fiber (Citrucil, Metamucil) or Casanthranol; Docusate Sodium. If one or the other is not effective, I will need to know. Kaushik Messer PA-C Denied- pt must try at least 2 alternatives to at least 14 days: Bisacodyl Casanthranol/docusate sodium Lactulose Polyethylene Glycol (has tried) Psyllium Fiber Senna Please advise. Lucero Mckeon LPN Prior Authorization has been completed online at [employer] for [employer], will await response. MYERS- [id number] Please keep encounter open until final decision has been received and documented from insurance company. Lucero Mckeon LPN PRIOR AUTHORIZATION Medication for Prior Authorization: Liinzess Other formulary meds available : NO Insurance Company: [employer] phone number: [phone] Patient insurance ID number: [id number] Meryl Boyd LPN documented in this encounter [facility] 11-10-2021 Miscellaneous Notes The following approved medication requests have been transmitted electronically. Signed Prescriptions Disp Refills LINZESS 290 mcg capsule 90 capsule 3 Sig: TAKE 1 CAPSULE BY MOUTH ONCE DAILY CHRIS: No Authorizing Provider: Emily MEHTA PA-C documented in this encounter [facility] 10-29-2021 Miscellaneous Notes Summary: Appointment Scheduled PT on 11/03/21 at 1:00 on a 40 min slot for a physical and a med refill. We can since he has seen us before. Patient former Dr. Humphrey and Kaushik Mehta patient hasn't been seen since 2018. Patient is needing blood pressure medicine. Please advise if either provider is willing to take him back as a patient. Please call patient. Thank you documented in this encounter [facility] documented as of this encounter (statuses as of 11/10/2021) [address]24-2016 History of Past illness Narrative* Problem Noted Date Resolved Date Other specified endocrine disorders 03/31/2016 11/03/2021 documented as of this encounter (statuses as of 11/13/2021) [address]24-2016 History of Past illness Narrative* Problem Noted Date Resolved Date Other specified endocrine disorders 03/31/2016 11/03/2021 documented as of this encounter (statuses as of 02/04/2022) [address]24-2016 History of Past illness Narrative* Problem Noted Date Resolved Date Other specified endocrine disorders 03/31/2016 11/03/2021 documented as of this encounter (statuses as of 03/18/2022) [address]24[address]2016 History of Past illness Narrative* Problem Noted Date Resolved Date Other specified endocrine disorders 03/31/2016 11/03/2021 documented as of this encounter (statuses as of 03/19/2022) [address]24[address]2016 History of Past illness Narrative* Problem Noted Date Diagnosed Date Resolved Date Other specified endocrine disorders 03/31/2016 11/03/2021 documented as of this encounter (statuses as of 02/21/2023) [address]24[address]2016 History of Past illness Narrative* Problem Noted Date Diagnosed Date Resolved Date Other specified endocrine disorders 03/31/2016 11/03/2021 documented as of this encounter (statuses as of 02/22/2023) [address] History of Past illness Narrative* Problem Noted Date Diagnosed Date Resolved Date Other specified endocrine disorders 03/31/2016 11/03/2021 documented as of this encounter (statuses as of 04/06/2023) [address] History of Past illness Narrative* Problem Noted Date Diagnosed Date Resolved Date Other specified endocrine disorders 03/31/2016 11/03/2021 documented as of this encounter (statuses as of 06/12/2023) [facility] note* Diagnosis Elevated blood pressure reading without diagnosis of hypertension- Primary Tachycardia Tachycardia, unspecified Irritable bowel syndrome with both constipation and diarrhea documented in this encounter [facility] note* Diagnosis Attention deficit disorder (ADD) without hyperactivity- Primary documented in this encounter [facility] note* Diagnosis Opioid use- Primary documented in this encounter [employer] Work Phone: [facility]* Diagnosis Constipation due to outlet dysfunction- Primary documented in this encounter [facility] note* Diagnosis Other constipation- Primary documented in this encounter [facility] note* Diagnosis Toothache- Primary Unspecified disorder of the teeth and supporting structures Headache, unspecified headache type Elevated blood pressure reading without diagnosis of hypertension Colonic dysmotility Unspecified functional disorder of intestine documented in this encounter [facility] note* Diagnosis Other constipation documented in this encounter [facility] for referral (narrative)* Outpatient Procedure (Routine) - Pending Review Specialty Diagnoses / Procedures Referred By Jose Juan yuen Referred To Contact [facility] Diagnoses Constipation due to outlet dysfunction Procedures ADULT [facility] ANORECTAL MANOMETRY ANORECTAL MANOMETRY Sandra Stovall APRN.CNP [address] [phone] [facility] [address] [phone] Referral ID Status Reason Start Date Expiration Date Visits Requested Visits Authorized [id number] Pending Review Auto-Generat ed Referral 02/21/2023 02/22/2024 [facility] Diagnostic Procedure Only (Routine) - Closed Specialty Diagnoses / Procedures Referred By Jose Juan yuen Referred To Contact XR IMAGING Diagnoses Other constipation Procedures XR COLONIC TRANSIT IMAGE 1 X-RAY ABD SINGLE AP VIEW Rajiv Berg DO [address] [phone] [place] [address] Referral ID Status Reason Start Date Expiration Date V isits Requested Visits Authorized [id number] Closed Auto-Generate d Referral 02/21/2023 08/07/2023 1 1 [facility] for referral (narrative)* Diagnostic Procedure Only (Routine) - Authorized Specialty Diagnoses / Procedures Referred By Contac t Referred To Contact XR IMAGING Diagnoses Other constipation Procedures XR COLONIC TRANSIT IMAGE 3 X-RAY ABD SINGLE AP VIEW Rajiv Berg, DO [address] [phone] [place] [address] Referral ID Status Reason Start Date Expiration Date Visits Requested Visits Authorized [id number] Authorized Auto-Generat ed Referral 03/15/2023 08/07/2023 3 3 [facility] for visit Narrative* Diagnostic Procedure Only (Routine) - Closed Specialty Diagnoses / Procedures Referred By Contac t Referred To Contact XR IMAGING Diagnoses Other constipation Procedures XR COLONIC TRANSIT IMAGE 1 X-RAY ABD SINGLE AP VIEW Rajiv Berg, DO [address] [place] [address] [place] [address] Referral ID Status Reason Start Date Expiration Date V isits Requested Visits Authorized [id number] Closed Auto-Generate d Referral 02/21/2023 08/07/2023 1 1 [facility] for visit Narrative* Diagnostic Procedure Only (Routine) - Authorized Specialty Diagnoses / Procedures Referred By Contac t Referred To Contact XR IMAGING Diagnoses Other constipation Procedures XR COLONIC TRANSIT IMAGE 3 X-RAY ABD SINGLE AP VIEW Rajiv Berg, DO [address] [place] [address] [place] [address] Referral ID Status Reason Start Date Expiration Date Visits Requested Visits Authorized [id number] Authorized Auto-Generat ed Referral 03/15/2023 08/07/2023 3 3 [facility] Advance Directives Documents on File Type Date Recorded 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 Advance Directive(s) Summary Purpose Family History No Family History Records FoundNo Family History Records FoundNo Family History Records Found Reason for Referral Specialty Diagnoses / Procedures Referred By Contac t Referred To Contact Diagnoses Other constipation Procedures CONSULT TO [facility]/OUT[facility]IENT [facility] 60-74 MINUTES Rajiv Berg DO [address] [place] [address] Referral ID Status Reason Start Date Expiration Date Visits Requested Visits Authorized [id number] Authorized PCP Requested Referral 02/21/2023 02/21/2024 1 1 Specialty Diagnoses / Procedures Referred By Contac t Referred To Contact Gastroenterology Diagnoses Other constipation Procedures CONSULT TO GASTROENTEROLOGY OFFICE/OUTPATIENT [facility] 60-74 MINUTES Rajiv Berg DO [address] [phone] Referral ID Status Reason Start Date Expiration Date Visits Requested Visits Authorized [id number] Authorized PCP Requested Referral 02/21/2023 02/21/2024 1 1 Specialty Diagnoses / Procedures Referred By Contac t Referred To Contact XR IMAGING Diagnoses Other constipation Procedures XR DEFECOGRAPHY RADIOLOGIC EXAM COLON SINGLE CONTRAST STUDY Rajiv Berg DO [address] [place] [address] Xr Imaging Referral ID Status Reason Start Date Expiration Date Visits Requested Visits Authorized [id number] Authorized Auto-Generat ed Referral 02/21/2023 03/22/2024 1 1 Specialty Diagnoses / Procedures Referred By Contac t Referred To Contact XR IMAGING Diagnoses Other constipation Procedures XR COLONIC TRANSIT IMAGE 3 X-RAY ABD SINGLE AP VIEW Rajiv Berg DO [address] [place] [address] Xr Imaging Referral ID Status Reason Start Date Expiration Date Visits Requested Visits Authorized [id number] Pending Review Auto-Generat ed Referral 02/21/2023 03/22/2024 1 1 Specialty Diagnoses / Procedures Referred By Contac t Referred To Contact XR IMAGING Diagnoses Other constipation Procedures XR COLONIC TRANSIT IMAGE 2 X-RAY ABD SINGLE AP VIEW Rajiv Berg DO [address] [place] [address] Xr Imaging Referral ID Status Reason Start Date Expiration Date Visits Requested Visits Authorized [id number] Pending Review Auto-Generat ed Referral 02/21/2023 03/22/2024 1 1 Specialty Diagnoses / Procedures Referred By Jose Juan t Referred To Contact XR IMAGING Diagnoses Other constipation Procedures XR COLONIC TRANSIT IMAGE 1 X-RAY ABD SINGLE AP VIEW Rajiv eBrg [address] [place] [address] Xr Imaging Referral ID Status Reason Start Date Expiration Date Visits Requested Visits Authorized [id number] Authorized Auto-Generat ed Referral 02/21/2023 08/07/2023 1 1 Additional Source Comments Source Comments (unrecognize d section and content) In the event this informatio n is protected by the Federal Confidentiality of Alcohol and Drug Abuse Patient Records regulations: The Federal rules restrict any use of the information to criminally investigate or prosecute any alcohol or drug abuse patient.[facility] the event this information is protected by the Federal Confidentiality of Alcohol and Drug Abuse Patient Records regulations: The Federal rules restrict any use of the information to criminally investigate or prosecute any alcohol or drug abuse patient.[facility] the event this information is protected by the Federal Confidentiality of Alcohol and Drug Abuse Patient Records regulations: The Federal rules restrict any use of the information to criminally investigate or prosecute any alcohol or drug abuse patient.[facility] the event this information is protected by the Federal Confidentiality of Alcohol and Drug Abuse Patient Records regulations: The Federal rules restrict any use of the information to criminally investigate or prosecute any alcohol or drug abuse patient.[facility] the event this information is protected by the Federal Confidentiality of Alcohol and Drug Abuse Patient Records regulations: The Federal rules restrict any use of the information to criminally investigate or prosecute any alcohol or drug abuse patient.[facility] the event this information is protected by the Federal Confidentiality of Alcohol and Drug Abuse Patient Records regulations: The Federal rules restrict any use of the information to criminally investigate or prosecute any alcohol or drug abuse patient.[facility] the event this information is protected by the Federal Confidentiality of Alcohol and Drug Abuse Patient Records regulations: The Federal rules restrict any use of the information to criminally investigate or prosecute any alcohol or drug abuse patient.[facility] the event this information is protected by the Federal Confidentiality of Alcohol and Drug Abuse Patient Records regulations: The Federal rules restrict any use of the information to criminally investigate or prosecute any alcohol or drug abuse patient.[facility] the event this information is protected by the Federal Confidentiality of Alcohol and Drug Abuse Patient Records regulations: The Federal rules restrict any use of the information to criminally investigate or prosecute any alcohol or drug abuse patient.[facility] the event this information is protected by the Federal Confidentiality of Alcohol and Drug Abuse Patient Records regulations: The Federal rules restrict any use of the information to criminally investigate or prosecute any alcohol or drug abuse patient.[facility] the event this information is protected by the Federal Confidentiality of Alcohol and Drug Abuse Patient Records regulations: The Federal rules restrict any use of the information to criminally investigate or prosecute any alcohol or drug abuse patient.[facility] Reason for Visit (unrecogniz ed section and content) Reason Comments Refill Request Reason Comments Insurance Authorization [employer] Reason Comments Lab order Reason Comments ADD/ADHD Last on medication w hen in high school Reason Comments Lab & Test Results Lab Reason Comments Addiction Problem Reason Comments Manometry Specialty Diagnoses / Procedures Referred By Jose Juan yuen Referred To Contact Colon and Rectal Surgery / Colorectal Surgery Diagnoses 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 FLOOR Procedures ANORECTAL MANOMETRY MANOMETRY ANORECTAL Emily Mehta PA-C [address] [place] [address] Sandra Stovall, MISDRAW [employer] GATE BUILDER [address] [place] [address] Referral ID Status Reason Start Date Expiration Date Visits Re quested Visits Authorized [id number] Closed 02/09/2023 08/07/2023 1 1 Reason Comments Consult Reason Comments Dental Problem tooth pain and heada ches ongoing Care Teams (unrecognized sec tion and content) [employer] Relationship Specialty Start Date End Date Emily Mehta PA-C [address] [place], [place] [address] PCP - General Family Practice 12/05/15 [employer] Relationship Specialty Start Date End Date Emily Mehta PA-C [address] [place], [place] [phone] PCP - General Family Practice 12/05/15 [employer] Relationship Specialty Start Date End Date Emily Mehta PA-C [address] [place], [place] [phone] PCP - General Family Practice 12/05/15 [employer] Relationship Specialty Start Date End Date Emily Mehta PA-C [address] [place], [place] [id number] PCP - General Family Practice 12/05/15 [employer] Relationship Specialty Start Date End Date Emily Mehta PA-C [address] [place], [place] [phone] PCP - General Family Practice 12/05/15 [employer] Relationship Specialty Start Date End Date Emily Mehta PA-C [address] [place], [place] [id number] PCP - General Family Medicine 12/05/15 [employer] Relationship Specialty Start Date End Date Emily Mehta PA-C [address] [place] [address] PCP - General Family Medicine 12/05/15 [employer] Relationship Specialty Start Date End Date Emily Mehta PA-C [address] [place] [address] PCP - General Family Medicine 12/05/15 [employer] Relationship Specialty Start Date End Date Emily Mehta PA-C [address] [place] [address] PCP - General Family Medicine 12/05/15 Scheduled Active and Recently Administ ered Medications (unrecognized section and content) (unrecognized sect ion and content) No Status Records FoundNo Status Records FoundNo Status Records Found INFORMATION SOURCE (unrecogn ized section and content) DATE CREATED AUTHOR AUTHOR'S ORGANIZ ATION 04/07/2023 [facility] ([place]) DATE CREATED AUTHOR AUTHOR'S ORGANIZ ATION 04/07/2023 [facility] FOR RECORDS PERTAINING TO PATIENTS WHO ARE OR HAVE BEEN ENROLLED IN A CHEMICAL DEPENDENCY/SUBSTANCEABUSE PROGRAM, SOME INFORMATION MAY BE OMITTED. This clinical summary was aggregated from multiple sources. Caution should be exercised in using it in the provision of clinical care. This summary normalizes information from multiple sources, and as a consequence, information in this document may materially change the coding, format and clinical context of patient data. In addition, data may be omitted in some cases. CLINICAL DECISIONS SHOULD BE BASED ON THE PRIMARY CLINICAL RECORDS. [facility]. provides no warranty or guarantee of the accuracy or completeness of information in this document.
--- NOTE | 2023-08-09 22:04 | ED.RN ---
This RN faxed a house arrest form for patient to confirm that he was here and being treated in the ER.
--- NOTE | 2023-08-09 22:10 | EDS_ITS ---
HPI History of Present Illness Chief Complaint: Edema Informant: patient and parent Narrative Narrative: Increasing left lower facial swelling since yesterday. No fevers. History of poor dentition. Has eventual plans for teeth extraction. No fevers. Hot and c old sensitivities. No medications taken. Has a dental appointment tomorrow around noon. No antibiotic allergies. Prior similar symptoms: Yes PFSH PFSH Medical History Abdominal pain Acid reflux Anxiety Colonic dysmotility Constipation Fecal impaction in rectum Lactose intolerance Restless leg syndrome Medical History no medical history Home Medications polyethylene glycol 3350 17 gram/dose oral powder (Miralax) 4 g PO DAILY 12/21/22 [History Last Taken Unknown] ibuprofen 600 mg tablet 600 mg PO Q6H PRN PRN pain #20 TABLETS 08/09/23 [Rx Last Taken Unknown] penicillin V potassium 500 mg tablet 500 mg PO 4X/DAY #40 tabs 08/09/23 [Rx Last Taken Unknown] Allergy/AdvReac Type Severity Reaction Status Date / Time barium sulfate Allergy Other Verified 08/09/23 21:03 lactose Allergy Abd Verified 08/09/23 21:03 cramps/diarrhea tramadol Allergy Hives Verified 08/09/23 21:03 Family History Grandfather Cancer lung Surgical History History of colonoscopy Social History household members: spouse and children housing: apartment Smoking Status: Current every day smoker tobacco type: cigarettes alcohol intake: never substance use type: does not use ROS ROS ED Constitutional Constitutional ED: Denies chills, fever(s) or sweats Eyes Eyes: Denies change in vision ENT ENT ED: Reports other Details: Dental pain, left facial swelling ; Denies dysphagia or sore throat Cardiovascular Cardiovascular: Denies chest pain, leg edema, palpitations or racing heartbeat Respiratory/Chest Respiratory/Chest: Denies cough, dyspnea or dyspnea on exertion Gastrointestinal Gastrointestinal: Denies abdominal pain, diarrhea, nausea or vomiting Genitourinary Genitourinary ED: Denies dysuria, hematuria or urinary frequency Musculoskeletal Musculoskeletal: Denies back pain, extremity pain or neck pain Integumentary Denies rash or wounds Neurologic Neurologic: Denies headache(s), paresthesias or weakness EXAM Physical Exam Const Vital Signs: 08/09/23 21:00 08/09/23 21:03 08/09/23 21:16 Temperature 97.7 F L 96 F L Temperature Source Temporal Temporal Pulse Rate 96 96 Respiratory Rate 15 15 Respiratory Effort Normal Respiratory Pattern Normal Blood Pressure 158/86 H 158/86 H Blood Pressure Mean 110 110 Pulse Ox 99 99 Oxygen Delivery Method Room Air Room Air Positive well nourished and well developed General Appearance ED: well developed and NAD HEENT Reports moist mucous membranes HEENT Narrative: Airway patent no trismus. Poor dentition lower molars bilaterally, no sublingual edema. There is no gum fluctuance. Decay of tooth 28 through 30, tenderness with percussion. Also dental decay on the right lower molars and premolars. There is swelling to the mandibular region on the left side. normocephalic and atraumatic Eyes PERRL, EOMs intact bilaterally and conjunctivae normal General Eye ED: Yes normal appearance of both eyes Neck no lymphadenopathy and supple General: Negative for tenderness Chest Wall Chest: Negative for tenderness Resp normal respiratory effort and normal air movement Effort and Inspection: symmetric chest movement; Negative for respiratory distress Cardio regular rate, regular rhythm and no murmurs Peripheral Pulses: pulses 2+ throughout GI normal to inspection, nondistended, normoactive bowel sounds and non-tender Palpation: Negative for guarding or rebound tenderness present Back/Spine no CVA tenderness and no thoracic nor lumbar tenderness Extremity normal to inspection General Extremety ED: Negative for edema or tenderness General Extremity: Negative for edema Neuro oriented x3 and no sensory deficits noted Sensorium / Orientation: awake and alert Skin no rashes or lesions noted and no wounds MDM MDM MDM Narrative Medical decision making narrative: Interventions / MDM: Differential diagnosis: Dental caries with facial swelling. Diagnosis considered but do not suspect: No clinical Inder's angina. My EKG interpretation: N/A Imaging independently reviewed and interpreted by myself: N/A External documents reviewed: N/A Test considered but not ordered:N/A ED course: No airway compromise. Poor dentition with dentalgia. Penicillin started treatment for infection. Ibuprofen started. He will keep his dental appointment tomorrow. All questions were answered. Re-evaluation: stable Disposition discussed with patient/family/significant other: Patient and mother Case discussed with consulting clinician: N/A This note was generated with [employer] dictation software. It may contain incorrect words, spelling, and punctuation that were not noted in checking the note before signing. Discharge Plan Triage Chief Complaint: Edema ED Provider: Manpreet Ribera Dx/Rx/DC Orders Clinical Impression: Swelling of face, Dental caries Instructions: ED Dental Cavity Prescriptions: New penicillin V potassium 500 mg tablet 500 mg PO 4X/DAY Qty: 40 0RF ibuprofen 600 mg tablet 600 mg PO Q6H PRN PRN (Reason: pain) Qty: 20 0RF No Action polyethylene glycol 3350 [Miralax] 17 gram/dose powder 4 g PO DAILY Primary Care Provider: Shoaib Humphrey Referrals: Shoaib Humphrey MD [Primary Care Provider] - Activity Restrictions/Additional Instructions: Facial swelling with dental infection. No localized abscess in the gumline or under the tongue. Take antibiotic as prescribed. Keep your follow-up with your dentist tomorrow for evaluation and further recommendations for treatment. Disposition Disposition: Home, Self Care Discharge Date/Time: 08/09/23 22:06
== END 2023-08-09 22:06 | disposition home or self-care (01) ==
PROVIDERS: Emergency Provider Emergency Medicine; PCP Family Medicine; Visit Provider Emergency Medicine
DX: K02.9 Dental caries, unspecified (principal); R22.0 Localized swelling, mass and lump, head; F17.210 Nicotine dependence, cigarettes, uncomplicated
CPT/HCPCS: 99282

== ENCOUNTER 2023-09-01 04:04 | Emergency (ER) | payer MEDICAID, SELFPAY ==
[2023-09-01 04:06] VITALS: BP 152/97; PULSE 118; RESP 12; TEMP 36.1; O2SAT 97; BMI 31.5
--- NOTE | 2023-09-01 04:09 | CT_ITS ---
INDICATION: trauma EXAMINATION: CT BRAIN - CT Head or Brain W/O Contrast Injection TECHNIQUE: Multiple axial images were obtained of the head without intravenous contrast. A radiation dose optimization technique was used for this scan. IV Contrast dosage and agent: None. RADIATION DOSAGE (If Supplied By Facility): CTDIvol = ( 44.99 ) mGy, DLP = ( 863.60 ) mGycm COMPARISON: None. FINDINGS: BRAIN: No acute bleed. No edema. [place]-white matter differentiation is maintained. VENTRICLES AND SULCI: Not dilated. EXTRA-AXIAL: No hemorrhage, fluid collection, or mass. CALVARIUM / SKULL BASE: Unremarkable. FACE/SINUSES: Mucosal thickening in the maxillary sinuses. SOFT TISSUES: Unremarkable. CT/Brain/Head without Contrast IMPRESSION: No acute abnormality. Electronically Signed: Rosalinda Nash MD at 5:04 EST ,
--- NOTE | 2023-09-01 04:13 | EDS_ITS ---
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 Police arrived, he he was breathing, they provided 2 doses of Narcan intranasally, he woke up but was still very lethargic and somnolent, breathing 4-6 times per minute, so EMS gave him another dose now he is awake and vomited. He does not feel nauseated anymore. He states he has a terrible headache, and he has pain inside of his lip where there is a laceration. He does not remember anything after snorting the fentanyl. PFSH PFSH Medical History Abdominal pain Acid reflux Anxiety Colonic dysmotility Constipation Fecal impaction in rectum Lactose intolerance Restless leg syndrome Home Medications ibuprofen 600 mg tablet 600 mg PO Q6H PRN PRN pain #20 TABLETS 08/09/23 [Rx Last Taken Unknown] penicillin V potassium 500 mg tablet 500 mg PO 4X/DAY #40 tabs 08/09/23 [Rx Last Taken Unknown] Allergy/AdvReac Type Severity Reaction Status Date / Time barium sulfate Allergy Other Verified 09/01/23 04:15 lactose Allergy Abd Verified 09/01/23 04:15 cramps/diarrhea tramadol Allergy Hives Verified 09/01/23 04:15 Family History Grandfather Cancer lung Surgical History History of colonoscopy Social History (Updated 09/01/23 @ 04:[address] Dave De La Torre MD) household members: spouse and children housing: apartment Smoking Status: Current every day smoker tobacco type: cigarettes alcohol intake: never substance use type: opiates ROS ROS ED Constitutional Constitutional ED: Denies chills or fever(s) Eyes Eyes: Denies change in vision or diplopia ENT ENT ED: Reports other Details: oral pain/bleeding ; Denies rhinorrhea or sore throat Cardiovascular Cardiovascular: Denies chest pain or palpitations Respiratory/Chest Respiratory/Chest: Denies cough or dyspnea Gastrointestinal Gastrointestinal: Reports vomiting; Denies abdominal pain or diarrhea Genitourinary Genitourinary ED: Denies dysuria or hematuria Musculoskeletal Musculoskeletal: Denies back pain or neck pain Integumentary Denies abscess or rash Neurologic Neurologic: Reports headache(s); Denies paresthesias or weakness Psychiatric Psychiatric: Denies anxiety or suicidal thoughts EXAM Physical Exam Const Vital Signs: 09/01/23 04:06 09/01/23 05:12 Temperature 97 F L Temperature Source Temporal Pulse Rate 118 H 93 Respiratory Rate 12 18 Blood Pressure 152/97 H 152/104 H Blood Pressure Mean 115 120 Pulse Ox 97 94 Oxygen Delivery Method Room Air Room Air Positive well nourished and well developed General Appearance ED: well developed and NAD HEENT Reports moist mucous membranes HEENT Narrative: 3 cm full-thickness stellate mucosal laceration right upper anterior, does not involve the vermilion of the lip, it is opposite a outward-growing tooth which does not appear to be subluxed or loose but is chronically decayed. No other evidence of intraoral or facial trauma. normocephalic and atraumatic Eyes PERRL and EOMs intact bilaterally Neck full ROM and supple Resp normal respiratory effort and clear to auscultation bilaterally Cardio regular rate, regular rhythm and no murmurs GI non-tender and non-distended Auscultation: normoactive bowel sounds Palpation: soft Back/Spine no CVA tenderness General Back: other FROM Extremity normal to inspection General Extremety ED: Negative for edema, pulses abnormal or tenderness General Extremity: Negative for edema or pulses abnormal Neuro oriented x3, CN's II-XII intact bilaterally and no sensory deficits noted Sensorium / Orientation: awake and alert Motor Exam: strength 5/5 throughout Psych mental status grossly normal Skin no rashes or lesions noted and no wounds MDM MDM MDM Narrative Medical decision making narrative: CT of the head was obtained in order to rule out intracranial injury, I reviewed the images and report which I agree with, negative for anything acute. Laceration in his mouth was sutured. He was observed for about an hour and a half. He remained keenly alert, he did develop no chest discomfort or dyspnea, his vital signs remained stable and he was clinically stable, he complained of a headache so he was given ibuprofen but no more nausea after vomiting just upon arrival. He states he is not in need of detox since he currently does not use regularly. He was given outpatient addiction resources. Radiography Diagnostic Testing: Clinical Impression(s) from Imaging Studies Brain CT 09/01/23 04:09 IMPRESSION: No acute abnormality. Electronically Signed: Rosalinda Nash MD at 5:04 EST Reading Location ID and State: [facility] [place] Tel , Service support , Procedures Lacerations R upper ant oral mucosa: Length: 3 cm Depth: Sub Q Shape: Stellate Prep: - (rinsed w/ water repeatedly) Laceration repair: Lidocaine (1% plain, 1.5cc), Local and - (mucosal surface sutures (no buried/deep)) Number of Sutures/[place]: 4 Suture Information: 5-0 (chromic dissolvable) Discharge Plan Triage Chief Complaint: Overdose ED Provider: Dave De La Torre Dx/Rx/DC Orders Clinical Impression: Laceration of oral cavity, Closed head injury, Accidental fentanyl overdose Instructions: ED Drug Abuse, ED Laceration, Lip or Mouth Prescriptions: No Action penicillin V potassium 500 mg tablet 500 mg PO 4X/DAY Qty: 40 0RF ibuprofen 600 mg tablet 600 mg PO Q6H PRN PRN (Reason: pain) Qty: 20 0RF Primary Care Provider: Shoaib Humphrey Referrals: Shoaib Humphrey MD [Primary Care Provider] - As Needed [facility] [Non-Staff] - (as needed for addiction services/counseling/treatment) Activity Restrictions/Additional Instructions: The stitches in your mouth that should dissolve on their own within 5-10 days. If you feel 1 pop out you may spit it out or if you accidentally swallow it, it is okay. Rinsing your mouth twice daily with a mild salt water solution is all you need to help prevent infection. Disposition Disposition: Home, Self Care
--- OUTSIDE RECORDS SUMMARY | 2023-09-01 04:21 | XMS RPT_ITS | CCD ---
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 Name Role Phone Emily Mehta PA-C Primary Care Provider [phone] Unavailable Primary Care Provider Unavailabl e PROVIDER, UNKNOWN Referring Unavailable Marcela Jaramillo Attending Unavailable No, PCP Primary Care Unavailable Emily Mehta PA-C Primary Care Provider [phone] BEVERLY SARMIENTO MD Attending Unavailable DEIRDRE HUMPHREY [...] Amoxicillin; Translations: [AMOXICILLIN] Drug Allergy 7 Rash [facility] Work Phone: (13 sources) Lactose; Translations: [LACTOSE] Drug Allergy 2 Other: See Comments, Diarrhea [facility] (12 sources) Seasonal allergy; Translations: [SEASONAL ALLERGIES] Allergy to substance 1 Other: See Comments [facility] Medications Completed/Discontinued Medications Medication Drug Class(es) Dates Sig (Normalized) Sig (Original) [id number] 200 actuat albuterol 0.09 mg/actuat metered dose [...] 97.81 [degF] Wisam Augustin APRN.CNP Work Phone: [facility] 04-06-2023 12:59-0400 Body weight 114.31 kg Wisam Augustin APRN.CNP Work Phone: [facility] 04-06-2023 12:59-0400 Diastolic blood pressure 82 mm[Hg] Wisam Augustin APRN.CNP Work Phone: [facility] 04-06-2023 12:59-0400 Heart rate 88 /min Wisam Augustin APRN.CNP Work Phone: [facility] 04-06-2023 12:59-0400 Respiratory rate 16 /min Wisam Augustin APRN.CNP Work Phone: [facility] 04-06-2023 12:59-0400 SaO2% (BldA) [Mass fraction] 99 % Wisam Augustin CAR PICK UP DRIVER.VARITYPIST Work Phone: [facility] 04-06-2023 12:59-0400 Systolic blood pressure 132 mm[Hg] Wisam Augustin APRN.VARITYPIST Work Phone: [facility] 02-21-2023 10:16-0400 Body height 188 cm Rajiv Otis DO Work Phone: [facility] 02-21-2023 10:16-0400 Body temperature 97 [degF] Rajiv Otis DO Work Phone: [facility] 02-21-2023 10:16-0400 Body weight 107.05 kg Rajiv Otis DO Work Phone: [facility] 02-21-2023 10:16-0400 Diastolic blood pressure 89 mm[Hg] Rajiv Otis DO Work Phone: [facility] 02-21-2023 10:16-0400 Heart rate 78 /min Rajiv Otis DO Work Phone: [facility] 02-21-2023 10:16-0400 Respiratory rate 17 /min Rajiv Otis DO Work Phone: [facility] 02-21-2023 10:16-0400 SaO2% (BldA) [Mass fraction] 96 % Rajiv Otis DO Work Phone: [facility] 02-21-2023 10:16-0400 Systolic blood pressure 167 mm[Hg] Rajiv Otis DO Work Phone: [facility] 05-18-2022 22:00-0400 Diastolic blood pressure 85 mm[Hg] [facility] 05-18-2022 22:00-0400 Heart rate 90 /min [facility] 05-18-2022 22:00-0400 Respiratory rate 16 /min [facility] 05-18-2022 22:00-0400 SaO2% (BldA) [Mass fraction] 98 % [facility] 05-18-2022 22:00-0400 Systolic blood pressure 142 mm[Hg] [facility] 05-18-2022 19:47-0400 Body temperature 97.2 [degF] [facility] 05-18-2022 19:47-0400 Body weight 115.67 kg [facility] 03-16-2022 16:05-0400 Body weight 124.74 kg NA Mehta PA-C Work Phone: [facility] 03-16-2022 16:05-0400 Diastolic blood pressure 76 mm[Hg] NA Mehta PA-C Work Phone: [facility] 03-16-2022 16:05-0400 Heart rate 93 /min NA Mehta PA-C Work Phone: [facility] 03-16-2022 16:05-0400 Respiratory rate 16 /min NA Mehta PA-C Work Phone: [facility] 03-16-2022 16:05-0400 SaO2% (BldA) [Mass fraction] 97 % NA Mehta PA-C Work Phone: [facility] 03-16-2022 16:05-0400 Systolic blood pressure 140 mm[Hg] NA Mehta PA-C Work Phone: [facility] Encounters Encounter Date Encounter Type Care Provider Facility Start: 04-06-2023 End: 04-06-2023 ambulatory M FUAD MEHTA Facility:[facility] Start: 04-06-2023 End: 04-06-2023 Patient encounter procedure Wisam Augustin CAR PICK UP DRIVER.VARITYPIST Work Phone: [facility] Care Procedures Date Procedure Procedure Detail Performing Clinician Start: 03-25-2023 Radiologic exam abdo men 1 view Rajiv Otis DO Work Phone: Start: 03-21-2023 Radiologic exam abdo men 1 view Rajiv Otis DO Work Phone: Start: 02-21-2023 [place] [place] [facility] Sandra Stovall CAR PICK UP DR[place]VAR[place] Work Phone: Start: 05-18-2022 Drug tst prsmv [...] Activity Detail Author Start: 04-08-20[address] Influenza [address] [facility] Start: 03-16-2023 ANNUAL PCP TEAM PEANUT SHELLER ITZEL DISEASE VISIT ANNUAL PCP TEAM CHRONIC DISEASE VISIT [facility] Start: 11-03-2022 ANNUAL PCP TEAM PEANUT SHELLER ITZEL DISEASE VISIT ANNUAL PCP TEAM CHRONIC DISEASE VISIT [facility] Start: 11-03-2022 HPV VACCINE (2 - Mal e 3-dose series) HPV VACCINE (2 - Male 3-dose series) [facility] Immunizations Immunization Date Immunization Notes Care Provider Shasta batres 03-03-2013 human papilloma viru s vaccine, quadrivalent BANG NULL-Brenna Work Phone: [facility] 03-03-2013 varicella virus vaccine BANG NULL-Brenna Work Phone: [facility] 04-14-2012 measles, mumps and rubella virus vaccine NA Mehta PA-C Work Phone: [facility] 04-14-2012 tetanus toxoid, redu hazel diphtheria toxoid, and acellular pertussis vaccine, adsorbed NA Tyson NULL-C Work Phone: [facility] 12-24-2010 Meningococcal, MCV4, unspecified conjugate formulation(groups A, C, Y and W-135) BANG NULL-C Work Phone: [facility] 12-24-2010 varicella virus vaccine NA B lizett NULL-C Work Phone: [facility] 05-10-2009 influenza virus vaccine, unspecified formulation NA Mehta PA-C Work Phone: [facility] Work Phone: 12-26-1996 haemophilus influenz ae type b vaccine, HbOC conjugate NA Mehta PA-C Work Phone: [facility] 12-26-1996 haemophilus influenz ae type b vaccine, PRP-OMP conjugate NA Mehta PA-C Work Phone: [facility] 12-26-1996 measles, mumps and rubella virus vaccine NA Mehta PA-C Work Phone: [facility] 12-26-1996 poliovirus vaccine, inactivated NA Mehta PA-C Work Phone: [facility] 12-26-1996 trivalent poliovirus vaccine, live, oral NA Mehta PA-C Work Phone: [facility] 01-18-1996 diphtheria, tetanus toxoids and acellular pertussis vaccine, unspecified formulation NA Mehta PA-C Work Phone: [facility] 01-18-1996 DTaP-Haemophilus influenzae type b conjugate vaccine NA Mehta PA-C Work Phone: [facility] 01-18-1996 haemophilus influenz ae type b vaccine, PRP-OMP conjugate NA Mehta PA-C Work Phone: [facility] 01-18-1996 poliovirus vaccine, inactivated NA Mehta PA-C Work Phone: [facility] 01-18-1996 trivalent poliovirus vaccine, live, oral NA Mehta PA-C Work Phone: [facility] 1995 diphtheria, tetanus toxoids and acellular pertussis vaccine, unspecified formulation NA Mehta PA-C Work Phone: [facility] 1995 DTaP-Haemophilus influenzae type b conjugate vaccine NA Mehta PA-C Work Phone: [facility] 1995 haemophilus influenz ae type b vaccine, PRP-OMP conjugate NA Mehta PA-C Work Phone: [facility] 1995 hepatitis B vaccine, pediatric or pediatric/adolescent dosage NA Mehta PA-C Work Phone: [facility] 1995 hepatitis B vaccine, unspecified formulation NA Mehta PA-C Work Phone: [facility] 1995 diphtheria, tetanus toxoids and acellular pertussis vaccine, unspecified formulation NA Mehta PA-C Work Phone: [facility] 1995 DTaP-Haemophilus influenzae type b conjugate vaccine NA Mehta PA-C Work Phone: [facility] 1995 haemophilus influenz ae type b vaccine, PRP-OMP conjugate NA Mehta PA-C Work Phone: [facility] 1995 hepatitis B vaccine, pediatric or pediatric/adolescent dosage NA Mehta PA-C Work Phone: [facility] 1995 poliovirus vaccine, inactivated NA Mehta PA-C Work Phone: [facility] 1995 trivalent poliovirus vaccine, live, oral NA Mehta PA-C Work Phone: [facility] 1995 hepatitis B vaccine, pediatric or pediatric/adolescent dosage NA Mehta PA-C Work Phone: [facility] Payers Date Payer Category Payer Medicaid [place] [employer] [place] [id number] 2021-[facility] [phone] [address] [place] [address] Medicaid [id number] 2021 Medicaid [id number] 2021 Unknown [id number] 1995 Unknown [id number] 1995 Unknown [id number] Unknown Social History Date Type Detail Facility Start: 07-09-2011 End: 03-16-2022 Tobacco smoking status NHIS Smokes tobacco daily [facility] Start: 07-09-2011 History of tobacco use Smoker [facility] Start: 07-09-2014 End: 02-21-2023 Cigarettes smoked current (pack per day) - Reported 0.5 [facility] Start: 07-09-2014 End: 03-16-2022 Tobacco use and exposure Smokeless tobacco non-user [facility] Start: 09-11-2021 End: 02-21-2023 Alcohol intake Current non-drinker of alcohol (finding) [facility] Start: 1995 Sex Assigned At Not on file C [facility] Start: 11-03-2021 History SDOH Social Connections Phone 4 [facility] Start: 11-03-2021 History SDOH Social Connections Tenriism 1 [facility] Start: 11-03-2021 History SDOH Social Connections Membership 2 [facility] Start: 11-03-2021 History SDOH Social Connections Living 3 [facility] Start: 11-03-2021 History SDOH Physica l Activity DPW 0 [facility] Start: 1995 Sex Assigned At Male C [facility] Start: 07-09-2011 History of tobacco use Cigarette Smo ker [facility] Start: 05-18-2022 Alcohol intake Ex-drinker (finding) [employer] Work Phone: Start: 05-08-2022 End: 05-18-2022 Exposure to SARS-CoV-2 (event) Not sure [employer] Work Phone: Start: 11-02-2021 End: 02-21-2023 Social connection and isolation panel [facility] Do you belong to any clubs or organizations such as druze groups, unions, fraternal or athletic groups, or school groups? No [facility] Are you now , , , , never or living with a partner? [facility] How often to you hav e a drink containing alcohol? Patient refused [facility] Do you feel stress - tense, restless, nervous, or anxious, or unable to sleep at night because your mind is troubled all the time - these days [OSQ] To some extent [facility] (I/We) worried wheth er (my/our) food would run out before (I/we) got money to buy more. DK or Refused [facility] Start: 11-02-2021 Gender identity Identifies as male gender (finding) [facility] Clinical Notes 03-31-2016 to 04-06-2023 Yevgeniy Augustin MD - 04/06/2023 1:09 PM Leesa Alberto RT(R) - 03/25/2023 11:00 AM Leesa Alberto RT(R) - 03/21/2023 11:00 AM Rajiv Bucio DO - 02/21/2023 11:00 AM EDT Note Date & Type Note Facility 04-06-2023 Note HNO ID: [id number] Author: Yevgeniy Augustin MD Service: ? Author [...] follow-up with PCP tomorrow. Yevgeniy Augustin MD [facility] 04-06-2023 History of Presen t illness Narrative [...] Yevgeniy Augustin MD documented in this encounter [facility] 03-25-2023 Note HNO ID: [id number] Author: Leesa Grace RT(Sloan) Service: ? Author [...] RT Linda(Sloan) March 25, 2023 12:05 PM [facility] 03-25-2023 History of Presen t illness Narrative [...] 2023 12:05 PM documented in this encounter [facility] 03-23-2023 Note HNO ID: [id number] Author: Nissa Monzon RT(Sloan) Service: Radiology Author [...] RT Thom(R) March 23, 2023 11:21 AM [facility] 03-21-2023 Note HNO ID: [id number] Author: Leesa Grace RT(R) Service: ? Author [...] Grace RT(R) March 21, 2023 11:33 AM [facility] 03-21-2023 History of Presen t illness Narrative [...] 2023 11:33 AM documented in this encounter [facility] 02-21-2023 History and physical note Images from the original note were not included. COLORECTAL SURGERY PEL[facility] FLOOR [facility] February 21, 2023 Javier Vasquez 27 year old This consult was requested by Dr. Robert Garcia and my final recommendations will be communicated to the requesting health care provider by way of the shared medical record for internal providers or letter via the Health Benefits Direct Postal Service for external providers. Chief Complaint: [...] NO surgery abdominal or perineal Works at [employer] . Has 3 kids( 4,3,1 YO) . 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 Assessment Assessment and Plan: Javier Vasquze is a 27 year old with constipation [...] for biopsy based on above studies. Rajiv Begr, DO Pelvic Floor Colorectal Surgery Time Spent: [...] non-surgical treatment options. documented in this encounter [facility] 11-28-2022 Note HNO ID: [id number] Author: Dianna Jones APRN.VARITYPIST Service: ? Author Type: Nurse Practitioner Type: Progress Notes Filed: 11/28/2022 1:51 PM Note Text: This note was created using [employer]. Subjective Javier Vasquez is a 27 year [...] history is provided by the patient. No english as a second language instructor was used. Cough This is a new [...] There is n (more content not included)... [facility] 05-18-2022 Hospital Discharg e instructions Marcela Jaramillo PA-C - 05/18/2022 10:26 PM EDT Be sure to attend appointment tomorrow with provider at [facility] to continue suboxone therapy. [facility] Work Phone: 03-19-2022 Miscellaneous Notes Patient was [...] Kaushik Mehta PA-C documented in this encounter [facility] 03-16-2022 Instructions Emily Mehta PA-C - 03/16/2022 4:55 PM EDT ADDERALL ORAL AMPHETAMINE WITH DEXTROAMPHETAMINE - ORAL TABLET (yx-FSP-xz-meen WITH gnf-ejbt-vv-FET-uh-meen) COMMON BRAND NAME: Adderall USES: This medication [...] or caffeine. Decongestants are commonly found in svqm-dvq-ykdocnn jdplr-qip-xaif medicine. Contact your doctor if you need to use an ciuq-mqb-zqzpmwr cold medication. This medication must be used [...] sunlight and moisture. documented in this encounter [facility] 03-16-2022 History of Presen t illness Narrative 26 year old male with c/o asking to restart Adderall. Was on medication through high school for ADD. Focus is lacking, can't keep his concentration. Feels not at full potential. complains about his forgetfulness. 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 Has had a lot of [...] context and comparison. documented in this encounter [facility] 02-04-2022 Miscellaneous Notes Patient was notified Patricia [...] go to lab. documented in this encounter [facility] 11-13-2021 Miscellaneous Notes Patient returned call and [...] Prior Authorization has been completed online at [facility] for [employer], will await response. MYERS- [id number] Please keep encounter open until final decision has been received and documented from insurance company. Lucero Mckeon LPN PRIOR AUTHORIZATION Medication for Prior Authorization: Liinzess Other formulary meds available : NO Insurance Company: [employer] phone number: [phone] Patient insurance ID number: [id number] Meryl Boyd LPN documented in this encounter [facility] 11-10-2021 Miscellaneous Notes The following approved medication requests have been transmitted electronically. Signed Prescriptions Disp Refills LINZESS 290 mcg capsule 90 capsule 3 Sig: TAKE 1 CAPSULE BY MOUTH ONCE DAILY CHRIS: No Authorizing Provider: Emily MEHTA PA-C documented in this encounter [facility] 10-29-2021 Miscellaneous Notes Summary: Appointment Scheduled PT on 11/03/21 at 1:00 on a 40 min slot for a physical and a med refill. We can since he has seen us before. Patient former Dr. Humhprey and Kaushik Mehta patient hasn't been seen since 2018. Patient is needing blood pressure medicine. Please advise if either provider is willing to take him back as a patient. Please call patient. Thank you documented in this encounter [facility] documented as of this encounter (statuses as of 11/10/2021) [address]24-2016 History of Past illness Narrative* Problem Noted Date Resolved Date Other specified endocrine disorders 03/31/2016 11/03/2021 documented as of this encounter (statuses as of 11/13/2021) [address]2016 History of Past illness Narrative* Problem Noted Date Resolved Date Other specified endocrine disorders 03/31/2016 11/03/2021 documented as of this encounter (statuses as of 02/04/2022) [address]2016 History of Past illness Narrative* Problem Noted Date Resolved Date Other specified endocrine disorders 03/31/2016 11/03/2021 documented as of this encounter (statuses as of 03/18/2022) [address]2016 History of Past illness Narrative* Problem Noted Date Resolved Date Other specified endocrine disorders 03/31/2016 11/03/2021 documented as of this encounter (statuses as of 03/19/2022) [address]2016 History of Past illness Narrative* Problem Noted Date Diagnosed Date Resolved Date Other specified endocrine disorders 03/31/2016 11/03/2021 documented as of this encounter (statuses as of 02/21/2023) [address]2016 History of Past illness Narrative* Problem Noted Date Diagnosed Date Resolved Date Other specified endocrine disorders 03/31/2016 11/03/2021 documented as of this encounter (statuses as of 02/22/2023) [address] History of Past illness Narrative* Problem Noted Date Diagnosed Date Resolved Date Other specified endocrine disorders 03/31/2016 11/03/2021 documented as of this encounter (statuses as of 04/06/2023) [address] History of Past illness Narrative* Problem Noted Date Diagnosed Date Resolved Date Other specified endocrine disorders 03/31/2016 11/03/2021 documented as of this encounter (statuses as of 06/12/2023) [facility] note* Diagnosis Elevated blood pressure reading without diagnosis of hypertension- Primary Tachycardia Tachycardia, unspecified Irritable bowel syndrome with both constipation and diarrhea documented in this encounter [facility] note* Diagnosis Attention deficit disorder (ADD) without hyperactivity- Primary documented in this encounter [facility] note* Diagnosis Opioid use- Primary documented in this encounter [employer] Work Phone: [facility]* Diagnosis Constipation due to outlet dysfunction- Primary documented in this encounter [facility] note* Diagnosis Other constipation- Primary documented in this encounter [facility] note* Diagnosis Toothache- Primary Unspecified disorder of the teeth and supporting structures Headache, unspecified headache type Elevated blood pressure reading without diagnosis of hypertension Colonic dysmotility Unspecified functional disorder of intestine documented in this encounter [facility] note* Diagnosis Other constipation documented in this encounter [facility] for referral (narrative)* Outpatient Procedure (Routine) - Pending Review Specialty Diagnoses / Procedures Referred By Jose Juan yuen Referred To Contact [facility] Diagnoses Constipation due to outlet dysfunction Procedures [facility] [place] [facility] ANORECTAL MANOMETRY Sandra Stovall APRN.CNP [address] [place] [id number] [facility] [address] [phone] Referral ID Status Reason Start Date Expiration Date Visits Requested Visits Authorized [id number] Pending Review Auto-Generat ed Referral 02/21/2023 02/22/2024 1 1 [facility] Diagnostic Procedure Only (Routine) - Closed Specialty Diagnoses / Procedures Referred By Jose Juan yuen Referred To Contact [facility] Diagnoses Other constipation Procedures XR COLONIC TRANSIT IMAGE 1 X-RAY ABD SINGLE AP VIEW Rajiv Berg DO [address] [phone] [place] [address] Referral ID Status Reason Start Date Expiration Date V isits Requested Visits Authorized [id number] Closed Auto-Generate d Referral 02/21/2023 08/07/2023 1 1 [facility] for referral (narrative)* Diagnostic Procedure Only (Routine) - Authorized Specialty Diagnoses / Procedures Referred By Contac t Referred To Contact XR IMAGING Diagnoses Other constipation Procedures XR COLONIC TRANSIT IMAGE 3 X-RAY ABD SINGLE AP VIEW Rajiv Berg, DO [address] [place] [phone] [place] [address] Referral ID Status Reason Start Date Expiration Date Visits Requested Visits Authorized [id number] Authorized Auto-Generat ed Referral 03/15/2023 08/07/2023 3 3 [facility] for visit Narrative* Diagnostic Procedure Only (Routine) - Closed Specialty Diagnoses / Procedures Referred By Contac t Referred To Contact XR IMAGING Diagnoses Other constipation Procedures XR COLONIC TRANSIT IMAGE 1 X-RAY ABD SINGLE AP VIEW Rajiv Berg, DO [address] [place] [address] [place] [address] Referral ID Status Reason Start Date Expiration Date V isits Requested Visits Authorized [id number] Closed Auto-Generate d Referral 02/21/2023 08/07/2023 1 1 [facility] for visit Narrative* Diagnostic Procedure Only (Routine) - Authorized Specialty Diagnoses / Procedures Referred By Contac t Referred To Contact XR IMAGING Diagnoses Other constipation Procedures XR COLONIC TRANSIT IMAGE 3 X-RAY ABD SINGLE AP VIEW Rajiv Berg, DO [address] [place] [address] [place] [address] Referral ID Status Reason Start Date Expiration Date Visits Requested Visits Authorized [id number] Authorized Auto-Generat ed Referral 03/15/2023 08/07/2023 3 3 [facility] Advance Directives Documents on File Type Date Recorded 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[employer] Expl anation Advance Directive(s) Summary Purpose Family History No Family History Records FoundNo Family History Records FoundNo Family History Records Found Reason for Referral Specialty Diagnoses / Procedures Referred By Contac t Referred To Contact Diagnoses Other constipation Procedures CONSULT TO [facility] BEHAVIORAL MEDICINE OFFICE/OUTPATIENT [facility] 60-74 MINUTES Rajiv Berg DO [address] [place] [address] Referral ID Status Reason Start Date Expiration Date Visits Requested Visits Authorized [id number] Authorized PCP Requested Referral 02/21/2023 02/21/2024 1 1 Specialty Diagnoses / Procedures Referred By Contac t Referred To Contact Gastroenterology Diagnoses Other constipation Procedures CONSULT TO GASTROENTEROLOGY OFFICE/OUTPATIENT [facility] 60-74 MINUTES Rajiv Berg DO [address] [id number] Referral ID Status Reason Start Date Expiration Date Visits Requested Visits Authorized [id number] Authorized PCP Requested Referral 02/21/2023 02/21/2024 1 1 Specialty Diagnoses / Procedures Referred By Contac t Referred To Contact XR IMAGING Diagnoses Other constipation Procedures XR DEFECOGRAPHY RADIOLOGIC EXAM COLON SINGLE CONTRAST STUDY Rajiv Berg DO [address] [place] [address] Xr Imaging Referral ID Status Reason Start Date Expiration Date Visits Requested Visits Authorized [id number] Authorized Auto-Generat ed Referral 02/21/2023 03/22/2024 1 1 Specialty Diagnoses / Procedures Referred By Contac t Referred To Contact XR IMAGING Diagnoses Other constipation Procedures XR COLONIC TRANSIT IMAGE 3 X-RAY ABD SINGLE AP VIEW Rajiv Berg DO [address] [place] [address] Xr Imaging Referral ID Status Reason Start Date Expiration Date Visits Requested Visits Authorized [id number] Pending Review Auto-Generat ed Referral 02/21/2023 03/22/2024 1 1 Specialty Diagnoses / Procedures Referred By Contac t Referred To Contact XR IMAGING Diagnoses Other constipation Procedures XR COLONIC TRANSIT IMAGE 2 X-RAY ABD SINGLE AP VIEW Rajiv Berg DO [address] [place] [address] Xr Imaging Referral ID Status Reason Start Date Expiration Date Visits Requested Visits Authorized [id number] Pending Review Auto-Generat ed Referral 02/21/2023 03/22/2024 1 1 Specialty Diagnoses / Procedures Referred By Jose Juan t Referred To Contact XR IMAGING Diagnoses Other constipation Procedures XR COLONIC TRANSIT IMAGE 1 X-RAY ABD SINGLE AP VIEW Rajiv Berg [address] [place] [address] Xr Imaging Referral ID Status Reason Start Date Expiration Date Visits Requested Visits Authorized [id number] Authorized Auto-Generat ed Referral 02/21/2023 08/07/2023 1 1 Additional Source Comments Source Comments (unrecognize d section and content) In the event this informatio n is protected by the Federal Confidentiality of Alcohol and Drug Abuse Patient Records regulations: The Federal rules restrict any use of the information to criminally investigate or prosecute any alcohol or drug abuse patient.[facility] the event this information is protected by the Federal Confidentiality of Alcohol and Drug Abuse Patient Records regulations: The Federal rules restrict any use of the information to criminally investigate or prosecute any alcohol or drug abuse patient.[facility] the event this information is protected by the Federal Confidentiality of Alcohol and Drug Abuse Patient Records regulations: The Federal rules restrict any use of the information to criminally investigate or prosecute any alcohol or drug abuse patient.[facility] the event this information is protected by the Federal Confidentiality of Alcohol and Drug Abuse Patient Records regulations: The Federal rules restrict any use of the information to criminally investigate or prosecute any alcohol or drug abuse patient.[facility] the event this information is protected by the Federal Confidentiality of Alcohol and Drug Abuse Patient Records regulations: The Federal rules restrict any use of the information to criminally investigate or prosecute any alcohol or drug abuse patient.[facility]In the event this information is protected by the Federal Confidentiality of Alcohol and Drug Abuse Patient Records regulations: The Federal rules restrict any use of the information to criminally investigate or prosecute any alcohol or drug abuse patient.[facility] SouthIn the event this information is protected by the Federal Confidentiality of Alcohol and Drug Abuse Patient Records regulations: The Federal rules restrict any use of the information to criminally investigate or prosecute any alcohol or drug abuse patient.[facility] the event this information is protected by the Federal Confidentiality of Alcohol and Drug Abuse Patient Records regulations: The Federal rules restrict any use of the information to criminally investigate or prosecute any alcohol or drug abuse patient.[facility]In the event this information is protected by the Federal Confidentiality of Alcohol and Drug Abuse Patient Records regulations: The Federal rules restrict any use of the information to criminally investigate or prosecute any alcohol or drug abuse patient.[facility]In the event this information is protected by the Federal Confidentiality of Alcohol and Drug Abuse Patient Records regulations: The Federal rules restrict any use of the information to criminally investigate or prosecute any alcohol or drug abuse patient.[facility]In the event this information is protected by the Federal Confidentiality of Alcohol and Drug Abuse Patient Records regulations: The Federal rules restrict any use of the information to criminally investigate or prosecute any alcohol or drug abuse patient.[facility] Reason for Visit (unrecogniz ed section and [...] ANORECTAL MANOMETRY MANOMETRY ANORECTAL Emily Mehta PA-C [address] [place] [address] Sandra Stovall, CAR PICK UP DRIVER.VARITYPIST [address] [place] [address] Referral ID Status Reason Start Date Expiration Date Visits Re quested Visits Authorized [id number] Closed 02/09/2023 08/07/2023 1 1 Reason Comments Consult Reason Comments Dental Problem tooth pain and heada ches ongoing Care Teams (unrecognized sec tion and content) 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 Relationship Specialty Start Date End Date Emily Mehta PA-C [address] [place], [place] [id number] PCP - General Family Practice 12/05/15 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 Relationship 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 Start Date End Date Emily Mehta PA-C [address] [place], [place] [id number] PCP - General Family Practice 12/05/15 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 Relationship 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 Start Date End Date Emily Mehta PA-C [address] [place], [place] [id number] PCP - General Family Practice 12/05/15 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 Relationship 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 Start Date End Date Emily Mehta PA-C [address] [place], [place] [id number] PCP - General Family Practice 12/05/15 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 Relationship Specialty Start Date End Date Emily Mehta PA-C [address] [place], [place] [id number] PCP - General Family Practice 12/05/15 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 Relationship Specialty Start Date End Date Emily Mehta PA-C [address] [place], [place] [address] PCP - General Family Medicine 12/05/15 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 Relationship 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 Start Date End Date Emily Mehta PA-C [address] [place] [address] PCP - General Family Medicine 12/05/15 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 Relationship Specialty Start Date End Date Emily Mehta PA-C [address] [place] [address] PCP - General Family Medicine 12/05/15 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 Relationship Specialty Start Date End Date Emily Mehta PA-C [address] [place] [address] PCP - General Family Medicine 12/05/15 Scheduled Active and Recently Administ ered Medications (unrecognized section and content) (unrecognized sect ion and content) No Status Records FoundNo Status Records FoundNo Status Records Found INFORMATION SOURCE (unrecogn ized section and content) DATE CREATED AUTHOR AUTHOR'S ORGANIZ ATION 04/07/2023 [facility] ([place]) DATE CREATED AUTHOR AUTHOR'S ORGANIZ ATION 04/07/2023 [facility] FOR RECORDS PERTAINING TO PATIENTS WHO ARE [...] BE BASED ON THE PRIMARY CLINICAL RECORDS. [facility]. provides no warranty or guarantee of the accuracy or completeness of information in this document.
[2023-09-01] MEDS: Lidocaine 1% (20 ml mdv) 20 ML Vial INFILT (05:08)
[2023-09-01 05:12] VITALS: BP 152/104; PULSE 93; RESP 18; O2SAT 94
[2023-09-01 05:24] VITALS: BP 158/109; PULSE 108; RESP 12; O2SAT 94
[2023-09-01] MEDS: Ibuprofen 600 MG Tablet PO (05:28)
== END 2023-09-01 05:28 | disposition home or self-care (01) ==
PROVIDERS: Emergency Provider Emergency Medicine; PCP Family Medicine; Visit Provider Emergency Medicine
DX: T40.411A Poisoning by fentanyl or fentanyl analogs, accidental (unintentional), initial encounter (principal); S09.90XA Unspecified injury of head, initial encounter; S01.512A Laceration without foreign body of oral cavity, initial encounter; F17.210 Nicotine dependence, cigarettes, uncomplicated; R51.9 Headache, unspecified
CPT/HCPCS: 12013; 70450; 99284

== ENCOUNTER 2023-09-04 11:35 | Emergency (ER) | payer MEDICAID, SELFPAY ==
[2023-09-04 11:36] VITALS: BP 157/110; PULSE 77; RESP 18; TEMP 36.3; O2SAT 100; BMI 32.1
--- NOTE | 2023-09-04 11:42 | NURSING ---
NO OLD EKGS
--- NOTE | 2023-09-04 11:44 | RAD_ITS ---
HISTORY: chest pain. TECHNIQUE: XR Chest 2 Views. COMPARISON: 10/23/2016. FINDINGS: CARDIOMEDIASTINAL BORDERS: Cardiac silhouette within normal limits in size. Mediastinal contour unremarkable. LUNGS: Small calcified right lower lobe granulomas again seen. PLEURA: No pleural effusion or pneumothorax seen. OSSEOUS STRUCTURES: Unremarkable. RAD/Chest PA and Lateral IMPRESSION: No acute cardiopulmonary process identified. Electronically Signed: Olga Maradiaga MD at 12:03 EST ,
--- NOTE | 2023-09-04 11:44 | EX.ED.DYSGE1 ---
HPI <PATRICK Molina - Last Filed: 09/04/23 12:15> History of Present Illness Chief Complaint: Chest Pain Narrative Narrative: Patient is a 27-year-old male with history of drug abuse who presents to the emergency department for left-sided chest pain. Patient overdosed on fentanyl 3 days ago, his girlfriend performed CPR and states that she heard something pop, patient did come here, and was discharged. Patient dates over the last 2 days, he has been having worsening pain to the left upper chest, worsening with raising his arms, deep breathing. He states he tried to go to work today and because the pain was so great he could not continue. Patient is here for evaluation. Patient denies any fever chills nausea or vomiting PFSH <PATRICK Molina - Last Filed: 09/04/23 12:15> PFSH Medical History (Updated 09/04/23 @ 12:[address] Bakari Herring MD) Abdominal pain Acid reflux Anxiety Colonic dysmotility Constipation Fecal impaction in rectum Hypertension Lactose intolerance Overdose Restless leg syndrome Home Medications ibuprofen 600 mg tablet 600 mg PO Q6H PRN PRN pain #20 TABLETS 08/09/23 [Rx Last Taken Unknown] penicillin V potassium 500 mg tablet 500 mg PO 4X/DAY #40 tabs 08/09/23 [Rx Last Taken Unknown] naproxen 500 mg tablet (Naprosyn) 500 mg PO BID PRN pain #20 tabs 09/04/23 [Rx Last Taken Unknown] Allergy/AdvReac Type Severity Reaction Status Date / Time barium sulfate Allergy Other Verified 09/04/23 11:36 lactose Allergy Abd Verified 09/04/23 11:36 cramps/diarrhea tramadol Allergy Hives Verified 09/04/23 11:36 Family History Grandfather Cancer lung Surgical History History of colonoscopy Social History (Updated 09/01/23 @ 04:[address] Dave De La Torre MD) household members: spouse and children housing: apartment Smoking Status: Current every day smoker tobacco type: cigarettes alcohol intake: never substance use type: opiates ROS <PATRICK Molina - Last Filed: 09/04/23 12:15> ROS ED ROS Narrative Constitutional: Negative for fever, chills, weight loss, weakness Eyes: Negative for vision loss, vision change, double vision ENT: Negative for any sore throat, ear pain, congestion Cardiovascular: Negative for any chest pain, tightness, palpitations. Positive left-sided upper chest pain Respiratory: Negative for any cough, sputum production, hemoptysis, dyspnea, dyspnea on exertion, orthopnea Gastrointestinal: Negative for any abdominal pain, nausea, vomiting, diarrhea, constipation, blood in stool, blood in vomit : Negative for any urinary frequency, dysuria, retention, blood in urine Muscle skeletal: Negative for any myalgias, arthralgias, neck pain, back pain Neurological: Negative for any headache, syncope, paresthesias, dizziness Skin: Negative for any rashes, lumps, itching, abrasions, lacerations Psychiatric: Negative for any depression, anxiety, stress, suicidal ideation, homicidal ideation Hematologic: Negative for any easy bruising, excessive bruising, easy bleeding Allergies: Negative for any eczema, hives, rash EXAM <PATRICK Molina - Last Filed: 09/04/23 12:15> Physical Exam Narrative Exam Narrative: Vital signs reviewed. HEET: Head normocephalic atraumatic, TMs clear bilaterally. Posterior pharynx is clear, moist mucous membranes. Nares clear bilaterally. Neck: Supple with no lymphadenopathy or tenderness. No signs of meningismus. Cardiac: Regular rate and rhythm no murmurs gallops or rubs, equal peripheral pulses bilaterally. Respiratory: Lungs clear to auscultation bilaterally. Patient does have pain on palpation to the left anterior chest, there is no bruising, there is no edema, there is no crepitus noted. Equal breath sounds heard throughout. Worsening pain with elevation of his arms. Abdomen: Soft, nontender, nondistended. No abdominal bruit or pulsatile masses. No hepatosplenomegaly Extremities: No peripheral edema, no signs of gross trauma or deformity. Active full range of motion of all extremities. Neuro: Cranial nerves II through XII intact, no focal neurological deficits. Skin: Clean dry and intact with no rash, purpura, petechiae, vesicles or pustules. Backs/flank: No CVA tenderness, no midline spinal tenderness, no deformity. Psych: Normal mood and affect. No SI, HI or acute psychosis. Const Vital Signs: 09/04/23 11:36 Temperature 97.4 F L Temperature Source Temporal Pulse Rate 77 Respiratory Rate 18 Blood Pressure 157/110 H Blood Pressure Mean 125 Pulse Ox 100 <Dr. Bakari Herring MD - Last Filed: 09/04/23 12:12> Physical Exam Const Vital Signs: 09/04/23 11:36 Temperature 97.4 F L Temperature Source Temporal Pulse Rate 77 Respiratory Rate 18 Blood Pressure 157/110 H Blood Pressure Mean 125 Pulse Ox 100 MDM <PATRICK Molina - Last Filed: 09/04/23 12:15> [facility] Radiography Diagnostic Testing: Clinical Impression(s) from Imaging Studies Chest X-Ray 09/04/23 11:44 IMPRESSION: No acute cardiopulmonary process identified. Electronically Signed: Olga Maradiaga MD at 12:03 EST Reading Location ID and State: [facility] / [place] Tel , Service support , Treatment and Re-Evaluation :: Patient appears generally well, patient appears nontoxic, vital signs are stable. Presenting to the emergency department with left-sided chest pain has been ongoing since he had CPR done 2 to 3 days ago. Differential diagnosis includes rib fracture, muscle skeletal contusion, costochondritis, pneumothorax. Patient received a two-view chest x-ray. All radiologic examinations were read, reviewed by the emergency department attending. From these reads, a plan of care will be put in place. 2 view chest x-ray showed no acute process. At this time, patient be diagnosed with muscle skeletal chest pain. Patient will be given naproxen for home, he will be given a work note. He is instructed to perform gentle stretching, ice and heat. All questions were answered, patient stable for discharge. <Dr. Bakari Herring MD - Last Filed: 09/04/23 12:12> [facility] Narrative Medical decision making narrative: I have personally performed a face to face assessment of the patient and have reviewed the HOLLIE Note. I performed a substantive portion of the visit including all aspects of the following. My gomez findings include: History: Patient has had pain just to the left side of his sternum ever since he got CPR for a fentanyl overdose. He states he is not short of breath but if he takes a big breath it is a little sore. But it is also very sore to move twist or sit up. He states if he puts moderate pressure on the area it helps but if he puts too much pressure it hurts. Exam: Patient awake alert. He is not tachycardic tachypneic or hypoxic. He does have reproducible tenderness. No subcutaneous air. I do not feel any clicking with breathing. Lungs actually sound good. Saturations normal at 100% on room air showing no hypoxia. Medical Decision Making: History and exam are all consistent with musculoskeletal pain from CPR. Evidently the girlfriend felt a click or pop during CPR. My independent interpretation of his two-view chest x-ray shows no acute process and final reading is negative also. I think nonsteroidals and ice and time are appropriate. Radiography Diagnostic Testing: Clinical Impression(s) from Imaging Studies Chest X-Ray 09/04/23 11:44 IMPRESSION: No acute cardiopulmonary process identified. Electronically Signed: Olga Maradiaga MD at 12:03 EST , Discharge Plan Triage Chief Complaint: Chest Pain ED Midlevel Provider: Constantin Palmer ED Provider: Bakari Herring Dx/Rx/DC Orders Clinical Impression: Acute chest wall pain Instructions: ED Chest Pain, Noncardiac Prescriptions: New naproxen [Naprosyn] 500 mg tablet 500 mg PO BID PRN (Reason: pain) Qty: 20 0RF No Action penicillin V potassium 500 mg tablet 500 mg PO 4X/DAY Qty: 40 0RF ibuprofen 600 mg tablet 600 mg PO Q6H PRN PRN (Reason: pain) Qty: 20 0RF Stand Alone Forms: Work / School Excuse Primary Care Provider: Shoaib Humphrey Referrals: Shoaib Humphrey MD [Primary Care Provider] - Activity Restrictions/Additional Instructions: Please perform gentle stretching, ice and heat. Disposition Disposition: Home, Self Care
--- OUTSIDE RECORDS SUMMARY | 2023-09-04 11:59 | XMS RPT_ITS | CCD ---
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 Name Role Phone Emily Mehta PA-C Primary Care Provider [phone] Unavailable Primary Care Provider Unavailabl e PROVIDER, UNKNOWN Referring Unavailable Marcela Jaramillo Attending Unavailable No, PCP Primary Care Unavailable Emily Mehta PA-C Primary Care Provider [phone] BEVERLY SARMIENTO MD Attending Unavailable DEIRDRE HUPMHREY MD Primary Care Unavailable Emily MEHTA Primary [...] Amoxicillin; Translations: [AMOXICILLIN] Drug Allergy 7 Rash [facility] Work Phone: (13 sources) Lactose; Translations: [LACTOSE] Drug Allergy 2 Other: See Comments, Diarrhea [facility] (12 sources) Seasonal allergy; Translations: [SEASONAL ALLERGIES] Allergy to substance 1 Other: See Comments [facility] Medications Completed/Discontinued Medications Medication Drug Class(es) Dates Sig (Normalized) Sig (Original) [id number] 200 actuat albuterol 0.09 mg/actuat metered dose [...] 97.81 [degF] Wisam Augustin APRN.CNP Work Phone: [facility] 04-06-2023 12:59-0400 Body weight 114.31 kg Wisam Augustin APRN.CNP Work Phone: [facility] 04-06-2023 12:59-0400 Diastolic blood pressure 82 mm[Hg] Wisam Augustin APRN.CNP Work Phone: [facility] 04-06-2023 12:59-0400 Heart rate 88 /min Wisam Augustin APRN.CNP Work Phone: [facility] 04-06-2023 12:59-0400 Respiratory rate 16 /min Wisam Augustin APRN.CNP Work Phone: [facility] 04-06-2023 12:59-0400 SaO2% (BldA) [Mass fraction] 99 % Wisam Augustin MACHINE PIE MAKER.CLINICAL SUPPORT ASSOCIATE Work Phone: [facility] 04-06-2023 12:59-0400 Systolic blood pressure 132 mm[Hg] Wisam Augustin APRN.CLINICAL SUPPORT ASSOCIATE Work Phone: [facility] 02-21-2023 10:16-0400 Body height 188 cm Rajiv Otis DO Work Phone: [facility] 02-21-2023 10:16-0400 Body temperature 97 [degF] Rajiv Otis DO Work Phone: [facility] 02-21-2023 10:16-0400 Body weight 107.05 kg Rajiv Otis DO Work Phone: [facility] 02-21-2023 10:16-0400 Diastolic blood pressure 89 mm[Hg] Rajiv Otis DO Work Phone: [facility] 02-21-2023 10:16-0400 Heart rate 78 /min Rajiv Otis DO Work Phone: [facility] 02-21-2023 10:16-0400 Respiratory rate 17 /min Rajiv Otis DO Work Phone: [facility] 02-21-2023 10:16-0400 SaO2% (BldA) [Mass fraction] 96 % Rajiv Otis DO Work Phone: [facility] 02-21-2023 10:16-0400 Systolic blood pressure 167 mm[Hg] Rajiv Otis DO Work Phone: [facility] 05-18-2022 22:00-0400 Diastolic blood pressure 85 mm[Hg] [facility] 05-18-2022 22:00-0400 Heart rate 90 /min [facility] 05-18-2022 22:00-0400 Respiratory rate 16 /min [facility] 05-18-2022 22:00-0400 SaO2% (BldA) [Mass fraction] 98 % [facility] 05-18-2022 22:00-0400 Systolic blood pressure 142 mm[Hg] [facility] 05-18-2022 19:47-0400 Body temperature 97.2 [degF] [facility] 05-18-2022 19:47-0400 Body weight 115.67 kg [facility] 03-16-2022 16:05-0400 Body weight 124.74 kg NA Mehta PA-C Work Phone: [facility] 03-16-2022 16:05-0400 Diastolic blood pressure 76 mm[Hg] NA Mehta PA-C Work Phone: [facility] 03-16-2022 16:05-0400 Heart rate 93 /min NA Mehta PA-C Work Phone: [facility] 03-16-2022 16:05-0400 Respiratory rate 16 /min NA Mehta PA-C Work Phone: [facility] 03-16-2022 16:05-0400 SaO2% (BldA) [Mass fraction] 97 % NA Mehta PA-C Work Phone: [facility] 03-16-2022 16:05-0400 Systolic blood pressure 140 mm[Hg] NA Mehta PA-C Work Phone: [facility] Encounters Encounter Date Encounter Type Care Provider Facility Start: 04-06-2023 End: 04-06-2023 ambulatory M FUAD MEHTA Facility:[facility] Start: 04-06-2023 End: 04-06-2023 Patient encounter procedure Wisam Augustin MACHINE PIE MAKER.CLINICAL SUPPORT ASSOCIATE Work Phone: [facility] Care Procedures Date Procedure Procedure Detail Performing Clinician Start: 03-25-2023 Radiologic exam abdo men 1 view Rajiv Otis DO Work Phone: Start: 03-21-2023 Radiologic exam abdo men 1 view Rajiv Otis DO Work Phone: Start: 02-21-2023 [place]ULT [place] ANORECTAL MANOMETRY Sandra Stovall MACHINE PIE MAKEROrlandoCLINICAL SUPPORT ASSOCIATE Work Phone: Start: 05-18-2022 Drug tst prsmv [...] Activity Detail Author Start: 04-08-[address] [facility] Start: 03-16-2023 ANNUAL PCP TEAM PROCUREMENT ANALYST ITZEL DISEASE VISIT ANNUAL PCP TEAM CHRONIC DISEASE VISIT [facility] Start: 11-03-2022 ANNUAL PCP TEAM PROCUREMENT ANALYST ITZEL DISEASE VISIT ANNUAL PCP TEAM CHRONIC DISEASE VISIT [facility] Start: 11-03-2022 HPV VACCINE (2 - Mal e 3-dose series) HPV VACCINE (2 - Male 3-dose series) [facility] Immunizations Immunization Date Immunization Notes Care Provider Shasta batres 03-03-2013 human papilloma viru s vaccine, quadrivalent BANG NULL-Brenna Work Phone: [facility] 03-03-2013 varicella virus vaccine BANG NULL-Brenna Work Phone: [facility] 04-14-2012 measles, mumps and rubella virus vaccine NA Mehta PA-C Work Phone: [facility] 04-14-2012 tetanus toxoid, redu hazel diphtheria toxoid, and acellular pertussis vaccine, adsorbed NA Tyson NULL-C Work Phone: [facility] 12-24-2010 Meningococcal, MCV4, unspecified conjugate formulation(groups A, C, Y and W-135) BANG NULL-C Work Phone: [facility] 12-24-2010 varicella virus vaccine NA B lizett NULL-C Work Phone: [facility] 05-10-2009 influenza virus vaccine, unspecified formulation NA Mehta PA-C Work Phone: [facility] Work Phone: 12-26-1996 haemophilus influenz ae type b vaccine, HbOC conjugate NA Mehta PA-C Work Phone: [facility] 12-26-1996 haemophilus influenz ae type b vaccine, PRP-OMP conjugate NA Mehta PA-C Work Phone: [facility] 12-26-1996 measles, mumps and rubella virus vaccine NA Mehta PA-C Work Phone: [facility] 12-26-1996 poliovirus vaccine, inactivated NA Mehta PA-C Work Phone: [facility] 12-26-1996 trivalent poliovirus vaccine, live, oral NA Mehta PA-C Work Phone: [facility] 01-18-1996 diphtheria, tetanus toxoids and acellular pertussis vaccine, unspecified formulation NA Mehta PA-C Work Phone: [facility] 01-18-1996 DTaP-Haemophilus influenzae type b conjugate vaccine NA Mehta PA-C Work Phone: [facility] 01-18-1996 haemophilus influenz ae type b vaccine, PRP-OMP conjugate NA Mehta PA-C Work Phone: [facility] 01-18-1996 poliovirus vaccine, inactivated NA Mehta PA-C Work Phone: [facility] 01-18-1996 trivalent poliovirus vaccine, live, oral NA Mehta PA-C Work Phone: [facility] 1995 diphtheria, tetanus toxoids and acellular pertussis vaccine, unspecified formulation NA Mehta PA-C Work Phone: [facility] 1995 DTaP-Haemophilus influenzae type b conjugate vaccine NA Mehta PA-C Work Phone: [facility] 1995 haemophilus influenz ae type b vaccine, PRP-OMP conjugate NA Mehta PA-C Work Phone: [facility] 1995 hepatitis B vaccine, pediatric or pediatric/adolescent dosage NA Mehta PA-C Work Phone: [facility] 1995 hepatitis B vaccine, unspecified formulation NA Mehta PA-C Work Phone: [facility] 1995 diphtheria, tetanus toxoids and acellular pertussis vaccine, unspecified formulation NA Mehta PA-C Work Phone: [facility] 1995 DTaP-Haemophilus influenzae type b conjugate vaccine NA Mehta PA-C Work Phone: [facility] 1995 haemophilus influenz ae type b vaccine, PRP-OMP conjugate NA Mehta PA-C Work Phone: [facility] 1995 hepatitis B vaccine, pediatric or pediatric/adolescent dosage NA Mehta PA-C Work Phone: [facility] 1995 poliovirus vaccine, inactivated NA Mehta PA-C Work Phone: [facility] 1995 trivalent poliovirus vaccine, live, oral NA Mehta PA-C Work Phone: [facility] 1995 hepatitis B vaccine, pediatric or pediatric/adolescent dosage NA Mehta PA-C Work Phone: [facility] Payers Date Payer Category Payer Medicaid [place] [employer] [place] [id number] 2021-[facility] [phone] [address] [place] [address] Medicaid [id number] 2021 Medicaid [id number] 2021 Unknown [id number] 1995 Unknown [id number] 1995 Unknown [id number] Unknown Social History Date Type Detail Facility Start: 07-09-2011 End: 03-16-2022 Tobacco smoking status NHIS Smokes tobacco daily [facility] Start: 07-09-2011 History of tobacco use Smoker [facility] Start: 07-09-2014 End: 02-21-2023 Cigarettes smoked current (pack per day) - Reported 0.5 [facility] Start: 07-09-2014 End: 03-16-2022 Tobacco use and exposure Smokeless tobacco non-user [facility] Start: 09-11-2021 End: 02-21-2023 Alcohol intake Current non-drinker of alcohol (finding) [facility] Start: 1995 Sex Assigned At Not on file [facility] Start: 11-03-2021 History SDOH Social Connections Phone 4 [facility] Start: 11-03-2021 History SDOH Social Connections Mormonism 1 [facility] Start: 11-03-2021 History SDOH Social Connections Membership 2 [facility] Start: 11-03-2021 History SDOH Social Connections Living 3 [facility] Start: 11-03-2021 History SDOH Physica l Activity DPW 0 [facility] Start: 1995 Sex Assigned At Male [facility] Start: 07-09-2011 History of tobacco use Cigarette Smo ker [facility] Start: 05-18-2022 Alcohol intake Ex-drinker (finding) [facility] Work Phone: Start: 05-08-2022 End: 05-18-2022 Exposure to SARS-CoV-2 (event) Not sure [facility] Work Phone: Start: 11-02-2021 End: 02-21-2023 Social connection and isolation panel [facility] Do you belong to any clubs or organizations such as muslim groups, unions, fraternal or athletic groups, or school groups? No [facility] Are you now , , , , never or living with a partner? [facility] How often to you hav e a drink containing alcohol? Patient refused [facility] Do you feel stress - tense, restless, nervous, or anxious, or unable to sleep at night because your mind is troubled all the time - these days [OSQ] To some extent [facility] (I/We) worried wheth er (my/our) food would run out before (I/we) got money to buy more. DK or Refused [facility] Start: 11-02-2021 Gender identity Identifies as male gender (finding) [facility] Clinical Notes 03-31-2016 to 04-06-2023 Yevgeniy Augustin MD - 04/06/2023 1:09 PM Leesa Alberto RT(R) - 03/25/2023 11:00 AM Leesa Alberto RT(R) - 03/21/2023 11:00 AM Rajiv Bucio DO - 02/21/2023 11:00 AM EDT Note Date & Type Note Facility 04-06-2023 Note HNO ID: [id number] Author: Yevgeniy Augustin MD Service: ? Author [...] follow-up with PCP tomorrow. Yevgeniy Augustin MD [facility] 04-06-2023 History of Presen t illness [...] Yevgeniy Augustin MD documented in this encounter [facility] 03-25-2023 Note HNO ID: [id number] Author: Leesa Grace RT(Sloan) Service: ? Author [...] RT Linda(Sloan) March 25, 2023 12:05 PM [facility] 03-25-2023 History of Presen t illness [...] 2023 12:05 PM documented in this encounter [facility] 03-23-2023 Note HNO ID: [id number] Author: Nissa Monzon RT(Sloan) Service: Radiology Author [...] RT Thom(R) March 23, 2023 11:21 AM [facility] 03-21-2023 Note HNO ID: [id number] Author: Leesa Grace RT(R) Service: ? Author [...] Grace RT(R) March 21, 2023 11:33 AM [facility] 03-21-2023 History of Presen t illness [...] 2023 11:33 AM documented in this encounter [facility] 02-21-2023 History and physical note Images from the original note were not included. [facility] February 21, 2023 Javier Vasquez 27 year old This consult was requested by Dr. Robert Garcia and my final recommendations will be communicated to the requesting health care provider by way of the shared medical record for internal providers or letter via the [employer] for external providers. Chief Complaint: [...] NO surgery abdominal or perineal Works at [employer] . Has 3 kids( 4,3,1 YO) . 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 documented in this encounter [facility] 11-28-2022 Note HNO ID: [id number] Author: Dianna Jones APRN.CLINICAL SUPPORT ASSOCIATE Service: ? Author Type: Nurse Practitioner Type: Progress Notes Filed: 11/28/2022 1:51 PM Note Text: This note was created using [employer]. Subjective Javier Vasquez is a 27 year [...] history is provided by the patient. No edi analyst was used. Cough This is a new [...] There is n (more content not included)... [facility] 05-18-2022 Hospital Discharg e instructions Marcela Jaramillo PA-C - 05/18/2022 10:26 PM EDT Be sure to attend appointment tomorrow with provider at [facility] to continue suboxone therapy. [facility] 03-19-2022 Miscellaneous Notes Patient [...] Kaushik Mehta PA-C documented in this encounter [facility] 03-16-2022 Instructions Emily Mehta PA-C - 03/16/2022 4:55 PM EDT ADDERALL ORAL AMPHETAMINE WITH DEXTROAMPHETAMINE - ORAL TABLET (co-TPO-us-meen WITH bdz-vujr-cd-FET-uh-meen) COMMON BRAND NAME: Adderall USES: This medication [...] or caffeine. Decongestants are commonly found in cyef-dik-qlnfkst gvhfg-vqv-jzjg medicine. Contact your doctor if you need to use an wkzo-slx-fgfcdov cold medication. This medication must be used [...] sunlight and moisture. documented in this encounter [facility] 03-16-2022 History of Presen t illness Narrative 26 year old male with c/o asking to restart Adderall. Was on medication through high school for ADD. Focus is lacking, can't keep his concentration. Feels not at full potential. complains about his forgetfulness. 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 Has had a [...] context and comparison. documented in this encounter [facility] 02-04-2022 Miscellaneous Notes Patient was notified [...] go to lab. documented in this encounter [facility] 11-13-2021 Miscellaneous Notes Patient returned call [...] Prior Authorization has been completed online at [employer] for [employer], will await response. MYERS- [id number] Please keep encounter open until final decision has been received and documented from insurance company. Lucero Mckeon LPN PRIOR AUTHORIZATION Medication for Prior Authorization: [employer] Other formulary meds available : NO Insurance Company: [employer] phone number: [phone] Patient insurance ID number: [id number] Meryl Boyd LPN documented in this encounter [facility] 11-10-2021 Miscellaneous Notes The following approved medication requests have been transmitted electronically. Signed Prescriptions Disp Refills LINZESS 290 mcg capsule 90 capsule 3 Sig: TAKE 1 CAPSULE BY MOUTH ONCE DAILY CHRIS: No Authorizing Provider: Emily MEHTA PA-C documented in this encounter [facility] 10-29-2021 Miscellaneous Notes Summary: Appointment Scheduled [...] patient. Thank you documented in this encounter [facility] documented as of this encounter (statuses as of 11/10/2021) [address] History of Past illness Narrative* Problem Noted Date Resolved Date Other specified endocrine disorders 03/31/2016 11/03/2021 documented as of this encounter (statuses as of 11/13/2021) [address] History of Past illness Narrative* Problem Noted Date Resolved Date Other specified endocrine disorders 03/31/2016 11/03/2021 documented as of this encounter (statuses as of 02/04/2022) [address] History of Past illness Narrative* Problem Noted Date Resolved Date Other specified endocrine disorders 03/31/2016 11/03/2021 documented as of this encounter (statuses as of 03/18/2022) [address] History of Past illness Narrative* Problem Noted Date Resolved Date Other specified endocrine disorders 03/31/2016 11/03/2021 documented as of this encounter (statuses as of 03/19/2022) [address] History of Past illness Narrative* Problem Noted Date Diagnosed Date Resolved Date Other specified endocrine disorders 03/31/2016 11/03/2021 documented as of this encounter (statuses as of 02/21/2023) [address] History of Past illness Narrative* Problem Noted Date Diagnosed Date Resolved Date Other specified endocrine disorders 03/31/2016 11/03/2021 documented as of this encounter (statuses as of 02/22/2023) [address] History of Past illness Narrative* Problem Noted Date Diagnosed Date Resolved Date Other specified endocrine disorders 03/31/2016 11/03/2021 documented as of this encounter (statuses as of 04/06/2023) [address] History of Past illness Narrative* Problem Noted Date Diagnosed Date Resolved Date Other specified endocrine disorders 03/31/2016 11/03/2021 documented as of this encounter (statuses as of 06/12/2023) [facility] note* Diagnosis Elevated blood pressure reading without diagnosis of hypertension- Primary Tachycardia Tachycardia, unspecified Irritable bowel syndrome with both constipation and diarrhea documented in this encounter [facility] note* Diagnosis Attention deficit disorder (ADD) without hyperactivity- Primary documented in this encounter [facility] note* Diagnosis Opioid use- Primary documented in this encounter [facility] Work Phone: [facility] note* Diagnosis Constipation due to outlet dysfunction- Primary documented in this encounter [facility] note* Diagnosis Other constipation- Primary documented in this encounter [facility] note* Diagnosis Toothache- Primary Unspecified disorder of the teeth and supporting structures Headache, unspecified headache type Elevated blood pressure reading without diagnosis of hypertension Colonic dysmotility Unspecified functional disorder of intestine documented in this encounter [facility] note* Diagnosis Other constipation documented in this encounter [facility] for referral (narrative)* Outpatient Procedure (Routine) - Pending Review Specialty Diagnoses / Procedures Referred By Jose Juan yuen Referred To Contact [facility] Diagnoses Constipation due to outlet dysfunction Procedures ADULT [place] ANORECTAL MANOMETRY ANORECTAL MANOMETRY Sandra Stovall APRN.CNP [address] [id number] [facility] [place] [address] [phone] Referral ID Status Reason Start Date Expiration Date Visits Requested Visits Authorized [id number] Pending Review Auto-Generat ed Referral 02/21/2023 02/22/2024 [facility] Diagnostic Procedure Only (Routine) - Closed Specialty Diagnoses / Procedures Referred By Jose Juan yuen Referred To Contact XR IMAGING Diagnoses Other constipation Procedures XR COLONIC TRANSIT IMAGE 1 X-RAY ABD SINGLE AP VIEW Rajiv Berg DO [address] [phone] [place] [address] Referral ID Status Reason Start Date Expiration Date V isits Requested Visits Authorized [id number] Closed Auto-Generate d Referral 02/21/2023 08/07/2023 1 1 [facility] for referral (narrative)* Diagnostic Procedure Only (Routine) - Authorized Specialty Diagnoses / Procedures Referred By Contac t Referred To Contact XR IMAGING Diagnoses Other constipation Procedures XR COLONIC TRANSIT IMAGE 3 X-RAY ABD SINGLE AP VIEW Rajiv Berg, DO [address] [phone] [place] [address] Referral ID Status Reason Start Date Expiration Date Visits Requested Visits Authorized [id number] Authorized Auto-Generat ed Referral 03/15/2023 08/07/2023 3 3 [facility] for visit Narrative* Diagnostic Procedure Only (Routine) - Closed Specialty Diagnoses / Procedures Referred By Contac t Referred To Contact XR IMAGING Diagnoses Other constipation Procedures XR COLONIC TRANSIT IMAGE 1 X-RAY ABD SINGLE AP VIEW Rajiv Berg, DO [address] [place] [address] [place] [address] Referral ID Status Reason Start Date Expiration Date V isits Requested Visits Authorized [id number] Closed Auto-Generate d Referral 02/21/2023 08/07/2023 1 1 [facility] for visit Narrative* Diagnostic Procedure Only (Routine) - Authorized Specialty Diagnoses / Procedures Referred By Contac t Referred To Contact XR IMAGING Diagnoses Other constipation Procedures XR COLONIC TRANSIT IMAGE 3 X-RAY ABD SINGLE AP VIEW Rajiv Berg, DO [address] [place] [address] [place] [address] Referral ID Status Reason Start Date Expiration Date Visits Requested Visits Authorized [id number] Authorized Auto-Generat ed Referral 03/15/2023 08/07/2023 3 3 [facility] Advance Directives Documents on File Type Date Recorded 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 [place] [address] Referral ID Status Reason Start Date Expiration Date Visits Requested Visits Authorized [id number] Authorized PCP Requested Referral 02/21/2023 02/21/2024 1 1 Specialty Diagnoses / Procedures Referred By Contac t Referred To Contact Gastroenterology Diagnoses Other constipation Procedures CONSULT TO GASTROENTEROLOGY OFFICE/OUTPATIENT [facility] 60-74 MINUTES Rajiv Berg DO [address] [phone] Referral ID Status Reason Start Date Expiration Date Visits Requested Visits Authorized [id number] Authorized PCP Requested Referral 02/21/2023 02/21/2024 1 1 Specialty Diagnoses / Procedures Referred By Contac t Referred To Contact XR IMAGING Diagnoses Other constipation Procedures XR DEFECOGRAPHY RADIOLOGIC EXAM COLON SINGLE CONTRAST STUDY Rajiv Berg DO [address] [place] [address] X[facility] Imaging Referral ID Status Reason Start Date Expiration Date Visits Requested Visits Authorized [id number] Authorized Auto-Generat ed Referral 02/21/2023 03/22/2024 1 1 Specialty Diagnoses / Procedures Referred By Contac t Referred To Contact XR IMAGING Diagnoses Other constipation Procedures XR COLONIC TRANSIT IMAGE 3 X-RAY ABD SINGLE AP VIEW Rajiv Berg DO [address] [place] [address] X[facility] Imaging Referral ID Status Reason Start Date Expiration Date Visits Requested Visits Authorized [id number] Pending Review Auto-Generat ed Referral 02/21/2023 03/22/2024 1 1 Specialty Diagnoses / Procedures Referred By Contac t Referred To Contact XR IMAGING Diagnoses Other constipation Procedures XR COLONIC TRANSIT IMAGE 2 X-RAY ABD SINGLE AP VIEW Rajiv Berg DO [address] [place] [address] X[facility] Imaging Referral ID Status Reason Start Date Expiration Date Visits Requested Visits Authorized [id number] Pending Review Auto-Generat ed Referral 02/21/2023 03/22/2024 1 1 Specialty Diagnoses / Procedures Referred By Jose Juan t Referred To Contact XR IMAGING Diagnoses Other constipation Procedures XR COLONIC TRANSIT IMAGE 1 X-RAY ABD SINGLE AP VIEW Rajiv Berg [address] [place] [address] Xr Imaging Referral ID Status Reason Start Date Expiration Date Visits Requested Visits Authorized [id number] Authorized Auto-Generat ed Referral 02/21/2023 08/07/2023 1 1 Additional Source Comments Source Comments (unrecognize d section and content) In the event this informatio n is protected by the Federal Confidentiality of Alcohol and Drug Abuse Patient Records regulations: The Federal rules restrict any use of the information to criminally investigate or prosecute any alcohol or drug abuse patient.[facility] the event this information is protected by the Federal Confidentiality of Alcohol and Drug Abuse Patient Records regulations: The Federal rules restrict any use of the information to criminally investigate or prosecute any alcohol or drug abuse patient.[facility] the event this information is protected by the Federal Confidentiality of Alcohol and Drug Abuse Patient Records regulations: The Federal rules restrict any use of the information to criminally investigate or prosecute any alcohol or drug abuse patient.[facility] the event this information is protected by the Federal Confidentiality of Alcohol and Drug Abuse Patient Records regulations: The Federal rules restrict any use of the information to criminally investigate or prosecute any alcohol or drug abuse patient.[facility] the event this information is protected by the Federal Confidentiality of Alcohol and Drug Abuse Patient Records regulations: The Federal rules restrict any use of the information to criminally investigate or prosecute any alcohol or drug abuse patient.[facility] the event this information is protected by the Federal Confidentiality of Alcohol and Drug Abuse Patient Records regulations: The Federal rules restrict any use of the information to criminally investigate or prosecute any alcohol or drug abuse patient.[facility] the event this information is protected by the Federal Confidentiality of Alcohol and Drug Abuse Patient Records regulations: The Federal rules restrict any use of the information to criminally investigate or prosecute any alcohol or drug abuse patient.[facility] the event this information is protected by the Federal Confidentiality of Alcohol and Drug Abuse Patient Records regulations: The Federal rules restrict any use of the information to criminally investigate or prosecute any alcohol or drug abuse patient.[facility] the event this information is protected by the Federal Confidentiality of Alcohol and Drug Abuse Patient Records regulations: The Federal rules restrict any use of the information to criminally investigate or prosecute any alcohol or drug abuse patient.[facility] the event this information is protected by the Federal Confidentiality of Alcohol and Drug Abuse Patient Records regulations: The Federal rules restrict any use of the information to criminally investigate or prosecute any alcohol or drug abuse patient.[facility] the event this information is protected by the Federal Confidentiality of Alcohol and Drug Abuse Patient Records regulations: The Federal rules restrict any use of the information to criminally investigate or prosecute any alcohol or drug abuse patient.[facility] Reason for Visit (unrecogniz ed section [...] ANORECTAL MANOMETRY MANOMETRY ANORECTAL Emily Mehta PA-C [address] [place] [address] Sandra Stovall, MACHINE PIE MAKER.CLINICAL SUPPORT ASSOCIATE [address] [place] [address] Referral ID Status Reason Start Date Expiration Date Visits Re quested Visits Authorized [id number] Closed 02/09/2023 08/07/2023 1 1 Reason Comments Consult Reason Comments Dental Problem tooth pain and heada ches ongoing Care Teams (unrecognized sec tion and content) Toggle 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 Operator Relationship Specialty Start Date End Date Emily Mehta PA-C [address] [place], [place] [id number] PCP - General Family Practice 12/05/15 Toggle Press Operator Relationship Specialty Start Date End Date Emily Mehta PA-C [address], [place] [id number] PCP - General Family Practice 12/05/15 Toggle Press Operator Relationship Specialty Start Date End Date Emily Mehta PA-C [address], [place] [phone] PCP - General Family Practice 12/05/15 Toggle Press Operator Relationship Specialty Start Date End Date Emily Mehta PA-C [address], [place] [id number] PCP - General Family Practice 12/05/15 Toggle Press Operator Relationship Specialty Start Date End Date Emily Mehta PA-C [address], [place] [id number] PCP - General Family Practice 12/05/15 Toggle Press Operator Relationship Specialty Start Date End Date Emily Mehta PA-C [address], [place] [id number] PCP - General Family Medicine 12/05/15 Toggle Press Operator Relationship Specialty Start Date End Date Emily Mehta PA-C [address] [place] [address] PCP - General Family Medicine 12/05/15 Toggle Press Operator Relationship Specialty Start Date End Date Emily Mehta PA-C [address] [place] [address] PCP - General Family Medicine 12/05/15 Toggle Press Operator Relationship Specialty Start Date End Date Emily Mehta PA-C [address] [place] [address] PCP - General Family Medicine 12/05/15 Scheduled Active and Recently Administ ered Medications (unrecognized section and content) (unrecognized sect ion and content) No Status Records FoundNo Status Records FoundNo Status Records Found INFORMATION SOURCE (unrecogn ized section and content) DATE CREATED AUTHOR AUTHOR'S ORGANIZ ATION 04/07/2023 [facility] ([place]) DATE CREATED AUTHOR AUTHOR'S ORGANIZ ATION 04/07/2023 [facility] FOR RECORDS PERTAINING TO PATIENTS WHO [...] BE BASED ON THE PRIMARY CLINICAL RECORDS. [facility]. provides no warranty or guarantee of the accuracy or completeness of information in this document.
[2023-09-04 12:21] VITALS: BP 144/84; PULSE 89; RESP 16; TEMP 36.8; O2SAT 98
== END 2023-09-04 12:22 | disposition home or self-care (01) ==
PROVIDERS: Emergency Provider Emergency Medicine; PCP Family Medicine; Visit Provider Emergency Medicine
DX: R07.89 Other chest pain (principal); I10 Essential (primary) hypertension; F17.210 Nicotine dependence, cigarettes, uncomplicated
CPT/HCPCS: 71046; 99282

== ENCOUNTER 2023-11-03 09:19 | Emergency (ER) | payer MEDICAID, SELFPAY ==
[2023-11-03 09:19] VITALS: BP 173/113; PULSE 69; RESP 14; TEMP 36.2; O2SAT 98; BMI 33.0
--- NOTE | 2023-11-03 09:27 | EDS_ITS ---
HPI History of Present Illness Chief Complaint: Fall Informant: patient Onset/Context/Timing Onset: Today Mechanism/Context: Fall Quality of Pain: Sharp Location: Right lower ribs Worsened by: Deep breathing Relieved by: Nothing Associated Symptoms Associated Symptoms: Negative for Parasthesias, Weakness, Loss of function, Inability to ambulate, Loss of consciousness or Amnesia Narrative Narrative: Patient presents with right lower rib pain that began after a fall today. Patient states he fell in the shower and landed on the side of the tub. Patient states his pain is sharp. Patient states it is mainly over the right lower ribs. Patient states it is worse with breathing. Patient states nothing seems to help with it. Patient denies any head injury or loss of consciousness. Patient denies any paresthesias or weakness. Patient denies any other injuries. [facility] Medical History Abdominal pain Acid reflux Anxiety Colonic dysmotility Constipation Fecal impaction in rectum Hypertension Lactose intolerance Overdose Restless leg syndrome Home Medications naproxen 500 mg tablet (Naprosyn) 500 mg PO BID PRN pain #20 tabs 09/04/23 [Rx Last Taken Unknown] Allergy/AdvReac Type Severity Reaction Status Date / Time barium sulfate Allergy Other Verified 11/03/23 09:19 lactose Allergy Abd Verified 11/03/23 09:19 cramps/diarrhea tramadol Allergy Hives Verified 11/03/23 09:19 Family History Grandfather Cancer lung Surgical History History of colonoscopy Social History household members: spouse and children housing: apartment Smoking Status: Current every day smoker tobacco type: cigarettes alcohol intake: never substance use type: opiates ROS ROS ED Constitutional Constitutional ED: Denies chills or fever(s) Eyes Eyes: Denies blurry vision or change in vision ENT ENT ED: Denies rhinorrhea or sore throat Cardiovascular Cardiovascular: Reports chest pain; Denies palpitations Respiratory/Chest Respiratory/Chest: Denies cough or dyspnea Gastrointestinal Gastrointestinal: Denies nausea or vomiting Genitourinary Genitourinary ED: Denies dysuria or hematuria Musculoskeletal Musculoskeletal: Denies back pain or neck pain Integumentary Denies abscess or rash Neurologic Neurologic: Denies headache(s) or weakness Allergic/Immunologic Allergic/Immunologic ED: Denies mouth swelling or urticaria EXAM Physical Exam Const Vital Signs: 11/03/23 09:19 11/03/23 09:38 Temperature 97.2 F L Temperature Source Temporal Pulse Rate 69 Respiratory Rate 14 Respiratory Effort Normal Respiratory Depth Normal Respiratory Pattern Normal Blood Pressure 173/113 H Blood Pressure Mean 133 Pulse Ox 98 Oxygen Delivery Method Room Air Room Air Positive well nourished, well developed and obese General Appearance ED: well developed and NAD Nutritional Appearance: obese HEENT atraumatic Neck full ROM Chest Wall Chest Narrative: There is tenderness over the right lower ribs and costal margin. There is no bony crepitance or step-off. There is no edema or ecchymosis. There is no subcutaneous emphysema noted. Resp normal respiratory effort and clear to auscultation bilaterally Cardio regular rhythm Rate: regular rate GI non-tender, non-distended and no masses Back/Spine normal to inspection and no thoracic nor lumbar tenderness Extremity normal to inspection and full ROM Neuro oriented x3, CN's II-XII intact bilaterally, moves all extremities, no focal motor deficits and no sensory deficits noted Benton Coma Scale: document GCS findings Spontaneous Obeys Commands Oriented 15 Sensorium / Orientation: alert Motor Exam: strength 5/5 throughout Psych mental status grossly normal Skin no rashes or lesions noted MDM MDM MDM Narrative Medical decision making narrative: Differential diagnosis includes rib fracture, pneumothorax, and chest wall contusion. X-rays of the right ribs will be obtained to assess for rib fracture and pneumothorax. Radiography Diagnostic Testing: Clinical Impression(s) from Imaging Studies Ribs w/Chest X-Ray 11/03/23 10:10 IMPRESSION: RIBS: Normal x-ray examination of the ribs. CHEST: Normal x-ray examination of the chest. Electronically Signed: Jurgen Valencia MD at 10:24 EDT , X-rays of the right ribs were obtained. There are 5 views. On my independent interpretation, there is no acute fracture. There is no pneumothorax. There is no acute cardiopulmonary process noted. Radiologist also interpreted the x-rays and agrees. Treatment and Re-Evaluation Narrative: Patient was advised of his findings. Patient was instructed use ice to the area. Patient was instructed use Tylenol or ibuprofen as needed for pain. Patient was instructed to follow-up with his primary care physician in 5 to 7 days. Patient understood and was agreeable with the plan. All questions were answered. Discharge Plan Triage Chief Complaint: Fall ED Provider: Tyrone Wilcox Dx/Rx/DC Orders Clinical Impression: Contusion of rib on right side, Lactose intolerance Instructions: ED Chest Wall Contusion Prescriptions: No Action naproxen [Naprosyn] 500 mg tablet 500 mg PO BID PRN (Reason: pain) Qty: 20 0RF Primary Care Provider: Shoaib Humphrey Referrals: Shoaib Humphrey MD [Primary Care Provider] - 5-7 Days Disposition Disposition: Home, Self Care
--- NOTE | 2023-11-03 10:10 | RAD_ITS ---
STUDY: X-RAY - UNILATERAL RIBS ( RIGHT ) WITH CHEST REASON FOR EXAM: Male, 28 years old. Right anterior rib pain following a fall. TECHNIQUE - RIBS: 4 view(s) of the ribs. TECHNIQUE - CHEST: Single PA view of the chest. COMPARISON: None. FINDINGS - RIBS: Normal visualized ribs without a demonstrated fracture. FINDINGS - CHEST: The lungs are clear and expanded. There is no demonstrated pleural abnormality. Normal size heart. Normal mediastinum and pam. Normal visualized pulmonary arteries. Normal visualized aortic arch and descending thoracic aorta. Normal visualized thoracic spine. Normal visualized ribs, clavicles, and shoulders. There is no demonstrated abnormality of the visualized soft tissue structures of the upper abdomen. RAD/Ribs Uni Min 3V w/PA Chest IMPRESSION: RIBS: Normal x-ray examination of the ribs. CHEST: Normal x-ray examination of the chest. Electronically Signed: Jurgen Valencia MD at 10:24 EDT ,
[2023-11-03 11:50] VITALS: BP 121/79; PULSE 67; RESP 15; TEMP 36.3; O2SAT 100
== END 2023-11-03 11:51 | disposition home or self-care (01) ==
PROVIDERS: Emergency Provider Emergency Medicine; PCP Family Medicine; Visit Provider Emergency Medicine
DX: S20.211A Contusion of right front wall of thorax, initial encounter (principal); E73.9 Lactose intolerance, unspecified; W18.2XXA Fall in (into) shower or empty bathtub, initial encounter; I10 Essential (primary) hypertension; F17.210 Nicotine dependence, cigarettes, uncomplicated
CPT/HCPCS: 71101; 99282

== ENCOUNTER 2024-07-04 10:48 | Emergency (ER) | payer MEDICAID, SELFPAY ==
[2024-07-04 10:49] VITALS: BP 180/92; PULSE 65; RESP 16; TEMP 35.9; O2SAT 99; BMI 34.9
--- NOTE | 2024-07-04 11:23 | ED.VIS.DENTA ---
HPI History of Present Illness Chief Complaint: Dental Informant: patient Onset/Context/Timing Onset: Today Context: Gradual Onset Timing: Continuous Quality: Throbbing Location: Left lower molar Worsened by: Nothing Relieved by: - (Nothing) Associated Symptoms Assocated Symptom - Dental: jaw swelling, face swelling, cold sensitivity and hot sensitivity; Negative for fever Narrative Narrative: Patient presents with left lower dental pain that became worse today. Patient states he is currently on amoxicillin for dental infection. Patient states that he noted some swelling today. Patient states it is worse. Patient states it has been constant. Patient also admits to some hot and cold sensitivity. Patient denies any fevers or chills. Patient denies any difficulty breathing or difficulty swallowing. [facility] Medical History Overdose Hypertension Colonic dysmotility Anxiety Acid reflux Abdominal pain Restless leg syndrome Lactose intolerance Fecal impaction in rectum Constipation Home Medications ?Medication ?Instructions ?Recorded ?Last Taken ?Type naproxen 500 mg tablet (Naprosyn) 500 mg PO BID PRN pain #20 tabs 09/04/23 Unknown Rx clindamycin HCl 300 mg capsule 300 mg PO Q6H #40 CAPSULES 07/04/24 Unknown Rx (Cleocin HCl) Allergy/AdvReac Type Severity Reaction Status Date / Time barium sulfate Allergy Other Verified 07/04/24 10:52 lactose Allergy Abd Verified 07/04/24 10:52 cramps/diarrhea tramadol Allergy Hives Verified 07/04/24 10:52 Family History Grandfather Cancer lung Surgical History History of colonoscopy Social History (Updated 07/04/24 @ 11:[address] Tyrone Wilcox DO) household members: spouse and children housing: apartment Smoking Status: Current every day smoker tobacco type: cigarettes Electronic Cigarette Use: with nicotine alcohol intake: never substance use type: opiates ROS ROS ED Constitutional Constitutional ED: Denies chills or fever(s) Eyes Eyes: Denies blurry vision or change in vision ENT ENT ED: Denies rhinorrhea or sore throat Cardiovascular Cardiovascular: Denies chest pain or palpitations Respiratory/Chest Respiratory/Chest: Denies cough or dyspnea Gastrointestinal Gastrointestinal: Denies nausea or vomiting Genitourinary Genitourinary ED: Denies dysuria or hematuria Musculoskeletal Musculoskeletal: Denies back pain or neck pain Integumentary Denies abscess or rash Neurologic Neurologic: Denies headache(s) or weakness Allergic/Immunologic Allergic/Immunologic ED: Denies mouth swelling or urticaria EXAM Physical Exam Const Vital Signs: 07/04/24 10:49 Temperature 96.6 F L Temperature Source Temporal Pulse Rate 65 Respiratory Rate 16 Blood Pressure 180/92 H Blood Pressure Mean 121 Pulse Ox 99 Oxygen Delivery Method Room Air Positive well nourished and well developed General Appearance ED: well developed and NAD HEENT HEENT Narrative: There are multiple dental caries noted. There is gingival edema around the left lower first and second molars. There is no fluctuance. There is no evidence of any abscess. Oropharynx is clear. Airway is patent. There is no sublingual edema or evidence of Inder's angina. Teeth and Gingiva: caries, gingiva abnormal Positive for gingival edema and poor dentition Throat: posterior oropharynx normal Neck supple and no JVD General: Negative for anterior neck swelling, tenderness or submandibular swelling Neuro oriented x3, CN's II-XII intact bilaterally, moves all extremities, no focal motor deficits and no sensory deficits noted Sensorium / Orientation: alert Motor Exam: strength 5/5 throughout Psych mental status grossly normal MDM MDM MDM Narrative Medical decision making narrative: Patient was advised that these are infected dental caries. Patient was instructed to stop taking the amoxicillin. Patient is given a prescription for clindamycin. Patient was given his first dose here. Patient was instructed to follow-up with a dentist in 5 to 7 days. Patient was instructed to return if worse in any way. Patient understood and was agreeable with the plan. All questions were answered. Discharge Plan Triage Chief Complaint: Dental ED Provider: Tyrone Wilcox Dx/Rx/DC Orders Clinical Impression: Infected dental caries, Odontalgia Instructions: ED Dental Pain Prescriptions: New clindamycin HCl [Cleocin HCl] 300 mg capsule 300 mg PO Q6H Qty: 40 0RF No Action naproxen [Naprosyn] 500 mg tablet 500 mg PO BID PRN (Reason: pain) Qty: 20 0RF Primary Care Provider: Shoaib Humphrey Referrals: Shoaib Humphrey MD [Primary Care Provider] - 3-5 Days Dentist,Your [STAFF PHYSICIAN] - 3-5 Days Print Language: Indonesian Disposition Disposition: Home, Self Care
[2024-07-04] MEDS: Clindamycin HCl 150 MG Capsule 300 MG PO (12:10)
[2024-07-04] MEDS: Naproxen 500 MG Tablet PO (12:10)
== END 2024-07-04 12:13 | disposition home or self-care (01) ==
PROVIDERS: Emergency Provider Emergency Medicine; PCP Family Medicine; Visit Provider Emergency Medicine
DX: K02.9 Dental caries, unspecified (principal); K08.89 Other specified disorders of teeth and supporting structures; I10 Essential (primary) hypertension; F17.210 Nicotine dependence, cigarettes, uncomplicated
CPT/HCPCS: 99283

== ENCOUNTER 2024-12-10 10:43 | Observation (INO) | payer MEDICAID, SELFPAY ==
[2024-12-10] VITALS (7 sets, daily range): BP systolic 91–124; BP diastolic 49–73; PULSE 62–72; RESP 16; TEMP 35.4–36.6; O2SAT 94–99; BMI 39.7; BMI 38.9
[2024-12-10 11:24] LABS: Absolute Lymphocyte Count 2.08 X10^3/uL (0.83-4.51); Absolute Neutrophil Count 2.9 X10^3/uL (2.0-7.7); Basophil# 0.02 X10^3/uL; Basophil% 0.4 % (0-1); Eosinophil# 0.14 X10^3/uL; Eosinophils% 2.5 % (0-5); Hematocrit 37.8 % (40-54); Hemoglobin 13.5 g/dL (13.0-16.5); Lymphocyte # 2.08 X10^3/ul (0.83-4.51); Lymphocyte % 36.7 % (19-41); Mean Corp Hgb Conc 35.7 g/dL (32-36); Mean Corpuscular Hgb 30.3 pg (27.0-32.0); Mean Corpuscular Volume 84.8 fL (80-94); Mean Platelet Vol. 10.7 fl (6.2-12.0); Monocyte# 0.51 X10^3/uL; NRBC Flagged by Analyzer 0 % (0-5); Neutrophil % 51.2 % (47-70); Platelet Count 197 K/mm3 (150-450); RBC Distribution Width CV 11.9 % (11.6-14.6); RBC Distribution Width SD 36.4 fl (35.1-43.9); Red Blood Count 4.46 M/mm3 (4.6-6.2); White Blood Count 5.7 K/mm3 (4.4-11.0)
[2024-12-10 11:51] LABS: Alcohol, Blood (Medical)-Serum < 10.1 mg/dL (<=10.0)
[2024-12-10 11:56] LABS: ALB/GLOB Ratio 1.7 RATIO (0.9-2.4); AST(SGOT) 29 U/L (<=37); Alanine Aminotransfer ALT/SGPT 37 U/L (<=46); Albumin, Serum 4.3 g/dL (3.5-5.0); Alkaline Phosphatase 64 U/L (40-129); Anion Gap 12 (5-15); BUN 19 mg/dL (4-19); BUN/Creat Ratio 13.9 RATIO (10-20); Calcium,Total 9.4 mg/dL (7.6-11.0); Chloride 104 mmol/L (98-108); EST Glomerular Filtration Rate 70 (>60); Globulin 2.6 g/dL (2.2-4.2); Glucose 105 mg/dL (70-99); Potassium 4.2 mmol/L (3.3-5.1); Protein, Total 6.8 g/dL (5.9-8.4); Sodium Level 137 mmol/L (133-145); Total Bilirubin 0.46 mg/dL (0.00-1.30)
--- NOTE | 2024-12-10 12:02 | EX.ED.SAOD ---
HPI History of Present Illness Chief Complaint: Substance Abuse Informant: patient Narrative Narrative: Patient is a 29-year-old male with history of restless leg syndrome, elevated blood pressure, opioid dependency/abuse and GERD presenting for opioid withdrawal. Patient states he been sober for 8 months but started using again around a month ago. He states he snorts fentanyl. Denies any other drug use. Last used early this morning around 3 or 5 AM. States he does however much he can afford and sometimes uses every other day rather times wheezing multiple times a day. Also smokes cigarettes regularly. States he is feeling slightly shaky and sweaty and woke up nauseous but the nausea has since resolved. Currently denies any abdominal cramping or muscle cramping. Denies any other drug use or alcohol use. No other complaints or concerns reported at this time. [facility] Medical History Overdose Hypertension Colonic dysmotility Anxiety Acid reflux Abdominal pain Restless leg syndrome Lactose intolerance Fecal impaction in rectum Constipation Home Medications ?Medication ?Instructions ?Recorded ?Last Taken ?Type famotidine 20 mg tablet (Acid 20 mg PO DAILY GERD 12/10/24 12/09/24 History Controller) lisinopril 30 mg tablet 30 mg PO DAILY HTN 12/10/24 12/10/24 History mecobalamin (vitamin B12) 1,000 1,000 mcg PO DAILY SUPPLEMENT 12/10/24 12/09/24 History mcg lozenges trazodone 100 mg tablet 100 mg PO DAILY SLEEP 12/10/24 Unknown History Allergy/AdvReac Type Severity Reaction Status Date / Time barium sulfate Allergy Other Verified 12/10/24 10:47 lactose Allergy Abd Verified 12/10/24 10:47 cramps/diarrhea tramadol Allergy Hives Verified 12/10/24 10:47 Family History Grandfather Cancer lung Surgical History History of colonoscopy Social History household members: spouse and children housing: apartment Smoking Status: Current every day smoker tobacco type: cigarettes Electronic Cigarette Use: with nicotine alcohol intake: never substance use type: opiates ROS ROS ED Constitutional Constitutional ED: Reports sweats; Denies chills or fever(s) Eyes Eyes: Denies change in vision Cardiovascular Cardiovascular: Denies chest pain Respiratory/Chest Respiratory/Chest: Denies cough or dyspnea Gastrointestinal Gastrointestinal: Reports nausea; Denies abdominal pain, constipation, diarrhea or vomiting Musculoskeletal Musculoskeletal: Denies arthralgias or myalgias Integumentary Denies rash Neurologic Neurologic: Denies headache(s) or weakness Psychiatric Psychiatric: Reports anxiety, depression and other Details: Substance abuse ; Denies suicidal ideation or suicidal thoughts EXAM Physical Exam Const Vital Signs: 12/10/24 10:44 12/10/24 11:43 12/10/24 12:00 Temperature 95.8 F L Temperature Source Temporal Pulse Rate 66 65 62 Respiratory Rate 16 16 16 Blood Pressure 111/70 91/49 L 94/52 L Blood Pressure Mean 83 63 66 Pulse Ox 94 94 96 Oxygen Delivery Method Room Air Room Air Room Air Positive well nourished and well developed General Appearance ED: well developed and NAD HEENT Reports moist mucous membranes Eyes PERRL Neck supple Chest Wall inspection of chest normal Resp normal respiratory effort and clear to auscultation bilaterally Cardio regular rate and regular rhythm GI soft to palpation and non-tender Neuro oriented x3 Sensorium / Orientation: alert Motor Exam: Negative for general weakness Psych mental status grossly normal and thought process normal Mood & Affect: depressed; Negative for anxious or tearful Skin Lesions: no lesions Rashes: no rashes MDM MDM MDM Narrative Medical decision making narrative: Patient evaluated for request of fentanyl detox. Will obtain medical screening labs. Patient's blood pressure is borderline low but maps are still normal. CBC is normal. CMP does show an elevation of his creatinine 1.4. Comparison labs are from 5 years ago and at that time his creatinine was close to 0.6. Will see if I can find more recent labs. On [facility] patient's creatinine on September of this year was 0.82. Will obtain IV access and give IV fluids. Will speak with hospitalist for admission. Patient's urine tox test positive for buprenorphine, fentanyl, amphetamines and cocaine. Because of this a CPK is added on as well as urinalysis. Case discussed with Dr. Crooks patient be admitted for opioid addiction/detox. CPK is mildly elevated suspect he does have a component of rhabdomyolysis. Lab Data Attestation: I reviewed the patient's lab results. Labs: Laboratory Results - last 24 hr 12/10/24 12/10/24 11:15 11:35 WBC 5.7 RBC 4.46 L Hgb 13.5 Hct 37.8 L MCV 84.8 MCH 30.3 MCHC 35.7 RDW Std Deviation 36.4 RDW Coeff of Arvin 11.9 Plt Count 197 MPV 10.7 Immature Gran % (Auto) 0.200 Neut % (Auto) 51.2 Lymph % (Auto) 36.7 Mobile % (Auto) 9.0 Eos % (Auto) 2.5 Baso % (Auto) 0.4 Absolute Neuts (auto) 2.9 Absolute Lymphs (auto) 2.08 Nucleated RBC % 0 PT 14.3 INR 1.1 Sodium 137 Potassium 4.2 Chloride 104 Carbon Dioxide 21.0 Anion Gap 12 BUN 19 Creatinine 1.40 H Est GFR (MDRD) Non-Af 70 BUN/Creatinine Ratio 13.9 Glucose 105 H Calcium 9.4 Total Bilirubin 0.46 AST 29 ALT 37 Alkaline Phosphatase 64 Total Creatine Kinase 578 H Total Protein 6.8 Albumin 4.3 Globulin 2.6 Albumin/Globulin Ratio 1.7 Urine Opiates Screen NEGATIVE U Buprenorphine Qual PRESUMPTIVE POSITIVE Ur Oxycodone Screen NEGATIVE Urine Methadone Screen NEGATIVE Urine Fentanyl Screen PRESUMPTIVE POSITIVE Ur Barbiturates Screen NEGATIVE Ur Phencyclidine Scrn NEGATIVE Ur Amphetamines Screen PRESUMPTIVE POSITIVE U Benzodiazepines Scrn NEGATIVE Urine Cocaine Screen PRESUMPTIVE POSITIVE U Cannabinoids Screen NEGATIVE Ethyl Alcohol < 10.1 Management Discussion w/another healthcare provider: Hospitalist Discharge Plan Dx/Rx/DC Orders Clinical Impression: Fentanyl dependence, CANDIDA (acute kidney injury), Rhabdomyolysis Disposition Disposition: Acute Care [facility] Discharge Date/Time: 12/10/24 13:03
[2024-12-10 12:26] LABS: Amphetamine Urine PRESUMPTIVE POSITIVE (<1000 ng/mL); Barbiturate Urine NEGATIVE (< 200 ng/mL); Benzodiazepine Urine NEGATIVE (< 200 ng/mL); Buprenorphine Urine PRESUMPTIVE POSITIVE (< 200 ng/mL); Cocaine Urine PRESUMPTIVE POSITIVE (< 300 ng/mL); Fentanyl, Urine PRESUMPTIVE POSITIVE; Methadone Urine NEGATIVE (< 300 ng/mL); Opiates Urine NEGATIVE (< 300 ng/mL); Oxycodone, Urine NEGATIVE (< 100 ng/mL); PCP Urine NEGATIVE (< 25 ng/mL); THC Urine NEGATIVE (< 50 ng/mL)
--- NOTE | 2024-12-10 12:43 | PCM.HP.STD ---
HPI - General General Date of Admission: 12/10/24 Date of Service: 12/10/24 Chief Complaint: Wants fentanyl detox. HPI Narrative JAVIER VASQUEZ, is a 29 M came to ED with acute opioid withdrawal symptoms, sleepy drowsy and sharp soaked in the sweat. Last use of fentanyl about 4 AM on the day of admission. Patient states he snorts fentanyl powder 1 g every other day and has been using for more than 10 years. He denies any alcohol use. He was drinking alcohol occasionally in school days but never been alcohol dependence or in moderate to severe amount. He denies use of amphetamine, methamphetamine, crack cocaine, [place] or other polysubstance use including ecstasy. Patient BP was low in the ED 91/49, twice. Patient given 1 L of normal saline bolus and increased to 124/65. Family history: Patient's father was alcohol dependence [facility] Medical History Overdose Hypertension Colonic dysmotility Anxiety Acid reflux Abdominal pain Restless leg syndrome Lactose intolerance Fecal impaction in rectum Constipation Home Medications ?Medication ?Instructions ?Recorded ?Last Taken ?Type famotidine 20 mg tablet (Acid 20 mg PO DAILY GERD 12/10/24 12/09/24 History Controller) lisinopril 30 mg tablet 30 mg PO DAILY HTN 12/10/24 12/10/24 History mecobalamin (vitamin B12) 1,000 1,000 mcg PO DAILY SUPPLEMENT 12/10/24 12/09/24 History mcg lozenges trazodone 100 mg tablet 100 mg PO DAILY SLEEP 12/10/24 Unknown History Allergy/AdvReac Type Severity Reaction Status Date / Time barium sulfate Allergy Other Verified 12/10/24 10:47 lactose Allergy Abd Verified 12/10/24 10:47 cramps/diarrhea tramadol Allergy Hives Verified 12/10/24 10:47 Family History Grandfather Cancer lung Surgical History History of colonoscopy Social History household members: spouse and children housing: apartment Smoking Status: Current every day smoker tobacco type: cigarettes Electronic Cigarette Use: with nicotine alcohol intake: never substance use type: opiates ROS ROS Narrative Constitutional: Reports fatigue and weakness. No fever. HEENT: Reports systems reviewed and no addt'l complaints, except as documented Respiratory/Chest: No acute shortness of breath or respiratory distress or wheezing. CVS: Hypertension history. Denies CAD or chronic heart disease. Gastrointestinal: Denies coffee ground emesis, hematemesis or vomiting Genitourinary: Denies burning urination or new urinary tract symptoms Musculoskeletal: Denies acute joint pain or limited range of motion. No acute injury Neurologic: Denies seizure-like symptoms. skin: No ulcer. No rash Endocrinology: Reports systems reviewed and no addt'l complaints, except as documented Hematologic/Lymphatic: Reports systems reviewed and no addt'l complaints, except as documented Rest 14 ROS are negative except as mentioned in HPI Vital Signs Vital Signs Vital Signs: 12/10/24 10:44 12/10/24 11:43 12/10/24 12:00 Temperature 95.8 F L Temperature Source Temporal Pulse Rate 66 65 62 Respiratory Rate 16 16 16 Blood Pressure 111/70 91/49 L 94/52 L Blood Pressure Mean 83 63 66 Pulse Ox 94 94 96 Oxygen Delivery Method Room Air Room Air Room Air Weight Weight: 301 lb 2.423 oz Body Mass Index (BMI) 39.7 Physical Exam Narrative General: Alert, Oriented x3, Cooperative. Obesity grade 3 BMI 39.0 kg/m?. Sweating HEENT: Atraumatic, PERRLA, EOMI, Normocephalic. Oral: Oral mucosa moist. No Gingival or Mucosal Lesions/ Ulcerations Neck: Supple, No JVD, Negative Carotid Bruits Chest wall/Lungs: Air entry diminished in bilateral lung bases. No crepitation/rhonchi Cardiovascular: Regular rate and rhythm, Normal S1,S2, No M/G/R Abdomen: Bowel Sounds Present, Soft, Non Tender, Non-Distended : No dysuria. No renal angle tenderness. No suprapubic tenderness. Extremities: No edema, Capillary Refill Less than 3 Seconds Skin: No rashes, No breakdown Musculoskeletal: No Tenderness to Palpation of Joints or Extremities. ROM full and intact Neurological: Cranial nerves II-XII grossly intact, DTR 2+/4. No acute focal neurological deficit. Psych/Mental Status: Mild lethargic. Results Lab / Micro Data 12/10/24 11:15 12/10/24 11:15 Labs: Laboratory Results - last 24 hr 12/10/24 11:15: WBC 5.7, RBC 4.46 L, Hgb 13.5, Hct 37.8 L, MCV 84.8, MCH 30.3, MCHC 35.7, RDW Std Deviation 36.4, RDW Coeff of Arvin 11.9, Plt Count 197, MPV 10.7, Immature Gran % (Auto) 0.200, Neut % (Auto) 51.2, Lymph % (Auto) 36.7, [place] % (Auto) 9.0, Eos % (Auto) 2.5, Baso % (Auto) 0.4, Absolute Neuts (auto) 2.9, Absolute Lymphs (auto) 2.08, Nucleated RBC % 0, Sodium 137, Potassium 4.2, Chloride 104, Carbon Dioxide 21.0, Anion Gap 12, BUN 19, Creatinine 1.40 H, Est GFR (MDRD) Non-Af 70, BUN/Creatinine Ratio 13.9, Glucose 105 H, Calcium 9.4, Total Bilirubin 0.46, AST 29, ALT 37, Alkaline Phosphatase 64, Total Protein 6.8, Albumin 4.3, Globulin 2.6, Albumin/Globulin Ratio 1.7, Ethyl Alcohol < 10.1 12/10/24 11:35: Urine Opiates Screen NEGATIVE, U Buprenorphine Qual PRESUMPTIVE POSITIVE, Ur Oxycodone Screen NEGATIVE, Urine Methadone Screen NEGATIVE, Urine Fentanyl Screen PRESUMPTIVE POSITIVE, Ur Barbiturates Screen NEGATIVE, Ur Phencyclidine Scrn NEGATIVE, Ur Amphetamines Screen PRESUMPTIVE POSITIVE, U Benzodiazepines Scrn NEGATIVE, Urine Cocaine Screen PRESUMPTIVE POSITIVE, U Cannabinoids Screen NEGATIVE Assessment & Plan Assessment/Plan (1) CANDIDA (acute kidney injury): (2) Opioid dependence with current use: PLAN: Plan This 20-year-old gentleman is being admitted for acute opioid withdrawal syndrome 1. Acute opioid withdrawal syndrome with dependence and tolerance with history of chronic opioid use disorder: Patient has been admitted in [facility] floor. The patient is started on buprenorphine along with other adjunctive medications as needed for medical stabilization as per order set of opioid withdrawal syndrome.Patient also on trazodone, hydroxyzine, gabapentin as needed ordered. Advised quitting opioid use. tax audit manager consult. 2. Chronic smoking/nicotine use dependence: Patient smokes a pack per day since age of 18 or 19. Nicotine patch ordered 3. CANDIDA probably due to dehydration, patient BP was also low. Replaced with IV fluid. Continue IV fluid. Admitted in BUN/creatinine 19/1.40. Baseline creatinine varies between 0.5-0.7. 4. Hypertension: Currently blood pressure is on lower side therefore hold antihypertensive medications. 5. Obesity grade 3: Weight loss counseling done. Airline Hostess consult. Living will/advanced directive/end of life care: Patient does not have living will or advanced directive. His is next of kin. Does not have DailyD power of patent prosecution attorney for health. After discussion of benefits/risks procedures involved with full code, DNR CC arrest and DNR CC, the patient opted for full code. Patient does want artificial life support including intubation, tube feed, ventilator and/chest compression, central venous catheter, vasopressor and DC shock if needed Total time spent in [id number] encounter in discussion of advanced directive 17 minutes. Charges/Coding Visit Charges Inpatient E&M: 54834 Init Hosp L3 Procedures Hospitalists Procedures: 50770 Advncd Care Plan 30 Min
[2024-12-10] MEDS: 0.9% Normal Saline (1000mL) 1,000 ML 999 ML IV (12:48)
[2024-12-10 13:06] LABS: CPK Total, Creatine Kinase 578 U/L (24-195)
[2024-12-10 13:10] LABS: International Normalized Ratio 1.1; Prothrombin Time (Protime)PT. 14.3 SECONDS (11.7-14.9)
[2024-12-10] MEDS: Dicyclomine 10 MG Capsule 20 MG PO (14:11)
[2024-12-10] MEDS: Ondansetron 8 MG Tablet PO (14:11)
[2024-12-10] MEDS: Buprenorphine HCl 2 MG TAB.SUBL SL ×2 (14:11→21:17)
[2024-12-10] MEDS: Methocarbamol 750 MG Tablet PO (14:11)
[2024-12-10] MEDS: hydrOXYzine PAM 25 MG Capsule 50 MG PO (14:11)
[2024-12-10] MEDS: Lactated Ringers 1,000 ML 125 ML IV (14:19)
--- NOTE | 2024-12-10 14:58 | NURSING ---
spoke with Dr. Humphrey's office and requesting his home med list be faxed to [facility] and number provided, states they will fax it over
[2024-12-10] MEDS: Famotidine 20 MG Tablet PO (16:45)
[2024-12-10 21:21] LABS: Mucous, Urine 0 SEEN /hpf (<or=2+); Red Blood Cells-Urine 0 SEEN /hpf (0-5); Squamous Epithelial Cells - UA 0 SEEN /hpf (0-5)
[2024-12-10 21:37] LABS: Color, Urine Yellow (Yellow); Glucose, Dipstick Normal (Normal); Ketone-Dipstick Negative (Negative); Leukocyte Esterase-Dipstick 100 /ul (Negative); Nitrite-Dipstick Negative (Negative); Occult Blood-Urine Negative /ul (Negative); Protein-Dipstick 30 mg/dl (Negative); Specific Gravity, Urine 1.025 (1.002-1.030); Urine Clarity Cloudy (Clear); Urine Urobilinogen 1 mg/dl (Normal)
[2024-12-10 21:45] LABS: Urine Bilirubin Dipstick 1 mg/dL (Negative)
[2024-12-10 21:46] LABS: Amorphous Sediment 3+; Bacteria 2+ /hpf (None Seen); White Blood Cells 0-5 SEEN /hpf (0-5)
[2024-12-11 02:16] VITALS: BP 141/89; PULSE 69; RESP 15; TEMP 36.6; O2SAT 97
[2024-12-11] MEDS: Buprenorphine HCl 2 MG TAB.SUBL SL ×3 (05:37→22:22)
[2024-12-11 08:34] VITALS: BP 165/80; PULSE 70; RESP 16; TEMP 36.7; O2SAT 98
[2024-12-11] MEDS: Lisinopril 10 MG Tablet 30 MG PO (08:40)
[2024-12-11] MEDS: Gabapentin 300 MG Capsule PO (08:41)
[2024-12-11] MEDS: cloNIDine HCl 0.1 MG Tablet PO (08:41)
[2024-12-11] MEDS: Famotidine 20 MG Tablet PO (08:41)
[2024-12-11 13:57] VITALS: BP 154/77; PULSE 67; RESP 16; TEMP 36.8; O2SAT 97
[2024-12-11] MEDS: hydrOXYzine PAM 25 MG Capsule 50 MG PO (14:02)
[2024-12-11] MEDS: Fluticasone 0.05% 1 SPRAY NASAL.SRY 2 SPRAY NASAL (14:02)
--- NOTE | 2024-12-11 14:13 | PN.HOSP_ITS ---
Reason for Visit Reason for Visit: Diagnoses Opioid dependence, uncomplicated (12/10/24) Acute kidney failure, unspecified (12/10/24) Objective Data Objective Data Vital Signs: Vital Signs Temp Pulse Resp BP Pulse Ox O2 Del Method 98.2 F 67 16 154/77 H 97 Room Air 12/11/24 13:57 12/11/24 13:57 12/11/24 13:57 12/11/24 13:57 12/11/24 13:57 12/11/24 13:57 Oxygen Delivery Method Room Air Weight: 295 lb 11.2 oz Body Mass Index (BMI) 38.9 Intake & Output: Intake and Output for Last 24 Hours 12/09/24 12/10/24 12/11/24 23:59 23:59 23:59 Intake Total 2500 / 2500 450 / 450 Balance 2500 / 2500 450 / 450 Lab / Micro Data 12/10/24 11:15 12/10/24 11:15 Labs: Laboratory Results - last 24 hr 12/10/24 11:35: Urine Color Yellow, Urine Clarity Cloudy, Urine pH 5.0, Ur Specific [place] 1.025, Urine Protein 30 H, Urine Glucose (UA) Normal, Urine Ketones Negative, Urine Occult Blood Negative, Urine Nitrite Negative, Urine Bilirubin 1 H, Urine Urobilinogen 1 H, Ur Leukocyte Esterase 100 H, Urine RBC 0 SEEN, Urine WBC 0-5 SEEN, Ur Squamous Epith Cells 0 SEEN, Amorphous Sediment 3+, Urine Bacteria 2+, Urine Mucus 0 SEEN Physical Exam Narrative Patient is doing well. No acute withdrawal symptoms. Sweating is resolved. Physical exam General: Alert, Oriented x3, Cooperative. Obesity grade 3 BMI 39.0 kg/m?. HEENT: Atraumatic, PERRLA, EOMI, Normocephalic. Oral: Oral mucosa moist. No Gingival or Mucosal Lesions/ Ulcerations Neck: Supple, No JVD, Negative Carotid Bruits Chest wall/Lungs: Air entry diminished in bilateral lung bases. No crepitation/rhonchi Cardiovascular: Regular rate and rhythm, Normal S1,S2, No M/G/R Abdomen: Bowel Sounds Present, Soft, Non Tender, Non-Distended : No dysuria. No renal angle tenderness. No suprapubic tenderness. Extremities: No edema, Capillary Refill Less than 3 Seconds Skin: No rashes, No breakdown Musculoskeletal: No Tenderness to Palpation of Joints or Extremities. ROM full and intact Neurological: Cranial nerves II-XII grossly intact, DTR 2+/4. No acute focal neurological deficit. Psych/Mental Status: Normal affect Assessment & Plan Assessment/Plan (1) CANDIDA (acute kidney injury): (2) Opioid dependence with current use: PLAN: Plan This 20-year-old gentleman is being admitted for acute opioid withdrawal syndrome 1. Acute opioid withdrawal syndrome with dependence and tolerance with history of chronic opioid use disorder: Patient has been admitted in [facility] floor. The patient is started on buprenorphine along with other adjunctive medications as needed for medical stabilization as per order set of opioid withdrawal syndrome.Patient also on trazodone, hydroxyzine, gabapentin as needed ordered. Advised quitting opioid use. telegraph office manager consult. 12/11: Discussed with [facility]. Patient has accepted all the suggestions for acute outpatient rehab. Overall withdrawal symptoms are well-controlled. 2. Chronic smoking/nicotine use dependence: Patient smokes a pack per day since age of 18 or 19. Nicotine patch ordered 3. CANDIDA probably due to dehydration, patient BP was also low. Replaced with IV fluid. Continue IV fluid. Admitted in BUN/creatinine 19/1.40. Baseline creatinine varies between 0.5-0.7. 12/11: Repeat BMP 4. Hypertension: Currently blood pressure is on lower side therefore hold antihypertensive medications. 5. Obesity grade 3: Weight loss counseling done. Supervisor Car Installations consult. Living will/advanced directive/end of life care: Patient does not have living will or advanced directive. His is next of kin. Does not have DailyD power of deputy prosecuting attorney for health. After discussion of benefits/risks procedures involved with full code, DNR CC arrest and DNR CC, the patient opted for full code. Patient does want artificial life support including intubation, tube feed, ventilator and/chest compression, central venous catheter, vasopressor and DC shock if needed Total time spent in [id number] encounter in discussion of advanced directive 17 minutes. Charges/Coding Visit Charges Inpatient E&M: 79920 Subs Hosp L2
[2024-12-11 20:00] VITALS: BP 164/90; PULSE 88; RESP 18; TEMP 37.1; O2SAT 100
[2024-12-12 03:42] VITALS: BP 131/76; PULSE 57; RESP 18; TEMP 36.6; O2SAT 94
[2024-12-12] MEDS: Buprenorphine HCl 2 MG TAB.SUBL SL (06:02)
[2024-12-12 07:14] LABS: Anion Gap 10 (5-15); BUN 9 mg/dL (4-19); BUN/Creat Ratio 9.4 RATIO (10-20); Chloride 105 mmol/L (98-108); Creatinine, Serum 0.91 mg/dL (0.70-1.20); EST Glomerular Filtration Rate 117 (>60); Estimated Creatinine Clearance 172.11 ml/min (50-250); Glucose 93 mg/dL (70-99); Potassium 3.8 mmol/L (3.3-5.1); Sodium Level 140 mmol/L (133-145)
[2024-12-12] MEDS: Lisinopril 10 MG Tablet 30 MG PO (08:46)
[2024-12-12] MEDS: Famotidine 20 MG Tablet PO (08:47)
[2024-12-12 09:45] VITALS: BP 158/92; PULSE 74; RESP 16; TEMP 36.6; O2SAT 100
--- NOTE | 2024-12-12 10:25 | DCINST_ITS ---
Discharge Instructions Diet Discharge Diet: No restrictions DC O2, CPAP, BIPAP needs Home O2 Discharge instructions: No Dressing / Incision Discharge Activity: Return to Normal Activity Weight Bearing Status: Weight bearing as tolerated Dressing / Incision Call your doctor if you observe: Fever of 101 or Higher, Coldness, Increased Pain, Numbness or Tingling, Change in Color, Inability to urinate, Inability to have a bowel movement, Shortness of breath, Dizziness, Fainting spells, Swelling in the ankles, Chest pain, Prolonged hiccupping, Increased palpitations (irregular heartbeat) and Calf discomfort Follow Up Care When: IN 2 WEEKS Test Results: Test results from this visit will be discussed in further detail at your follow- up appointment, if applicable. Discharge Plan Admission Admit Date/Time: 12/10/24 12:37 Primary Reason for Your Visit: Acute opioid withdrawal syndrome Attending Provider: Henrik Crooks Primary Care Provider: Shoaib Humphrey Instructions Additional Instructions / Restrictions: Follow-up 18O as outpatient Discharge Orders/Prescriptions Prescriptions: Continued lisinopril 30 mg tablet 30 mg PO DAILY mecobalamin (vitamin B12) 1,000 mcg lozenge 1,000 mcg PO DAILY Rx Instructions: allow to dissolve in mouth OR may chew lightly before swallowing famotidine [Acid Controller] 20 mg tablet 20 mg PO DAILY trazodone 100 mg tablet 100 mg PO DAILY fluticasone propionate [24 Hour Allergy Relief] 50 mcg/actuation spray,suspension 2 spray intranasal DAILY Rx Instructions: administer into each nostril furosemide 20 mg tablet 20 mg PO DAILY PRN (Reason: edema) Referrals / Follow Up: Shoaib Humphrey MD [Primary Care Provider] - Disposition Disposition (needs filled in before D/C Order can be placed): Home, Self Care
--- NOTE | 2024-12-12 11:27 | DS.PCM_ITS ---
Providers Date of Admission: 12/10/24 Date of Discharge: 12/12/24 Primary Care Physician: Dr. Shoaib Humphrey MD Reason For Visit: POLYSUBSTANCE USE Diagnosis Discharge Diagnosis (1) CANDIDA (acute kidney injury): Status: Acute Code(s): N17.9 - Acute kidney failure, unspecified (2) Opioid dependence with current use: Status: Acute Code(s): F11.20 - Opioid dependence, uncomplicated Plan This 20-year-old gentleman is being admitted for acute opioid withdrawal syndrome 1. Acute opioid withdrawal syndrome with dependence and tolerance with history of chronic opioid use disorder: Patient has been admitted in [facility] floor. The patient is started on buprenorphine along with other adjunctive medications as needed for medical stabilization as per order set of opioid withdrawal syndrome.Patient also on trazodone, hydroxyzine, gabapentin as needed ordered. Advised quitting opioid use. abstract manager consult. 12/11: Discussed with [facility]. Patient has accepted all the suggestions for acute outpatient rehab. Overall withdrawal symptoms are well-controlled. 12/12: Patient is doing very good. He wants to go home. Withdrawal symptoms have resolved. Cina score is 0 2. Chronic smoking/nicotine use dependence: Patient smokes a pack per day since age of 18 or 19. Nicotine patch ordered 3. CANDIDA probably due to dehydration, patient BP was also low. Replaced with IV fluid. Continue IV fluid. Admitted in BUN/creatinine 19/1.40. Baseline creatinine varies between 0.5-0.7. 12/12: Creatinine is 0.91. CANDIDA resolved 4. Hypertension: Currently blood pressure is on lower side therefore hold antihypertensive medications. 5. Obesity grade 3: Weight loss counseling done. Calender Worker Helper consult. Living will/advanced directive/end of life care: Patient does not have living will or advanced directive. His is next of kin. Does not have DailyD power of water mangle tender for health. After discussion of benefits/risks procedures involved with full code, DNR CC arrest and DNR CC, the patient opted for full code. Patient does want artificial life support including intubation, tube feed, ventilator and/chest compression, central venous catheter, vasopressor and DC shock if needed Patient is being discharged home. Discharge meds reconciliation done. Follow up to 180 as an outpatient. Follow with PCP Medications at Discharge Home Medications famotidine 20 mg tablet (Acid Controller) 20 mg PO DAILY GERD 12/10/24 fluticasone propionate 50 mcg/actuation nasal spray,suspension (24 Hour Allergy Relief) 2 spray intranasal DAILY allergies 12/10/24 furosemide 20 mg tablet 20 mg PO DAILY PRN edema 12/10/24 lisinopril 30 mg tablet 30 mg PO DAILY HTN 12/10/24 mecobalamin (vitamin B12) 1,000 mcg lozenges 1,000 mcg PO DAILY SUPPLEMENT 12/10/24 trazodone 100 mg tablet 100 mg PO DAILY SLEEP 12/10/24 Physical Exam Narrative Seen and examined. No withdrawal symptoms. Doing well normal at baseline. Wants to go home Physical exam General: Alert, Oriented x3, Cooperative. Obesity grade 3 BMI 39.0 kg/m?. HEENT: Atraumatic, PERRLA, EOMI, Normocephalic. Oral: Oral mucosa moist. No Gingival or Mucosal Lesions/ Ulcerations Neck: Supple, No JVD, Negative Carotid Bruits Chest wall/Lungs: Air entry equal in bilateral lung bases. No crepitation/rhonchi Cardiovascular: Regular rate and rhythm, Normal S1,S2, No M/G/R Abdomen: Bowel Sounds Present, Soft, Non Tender, Non-Distended : No dysuria. No renal angle tenderness. No suprapubic tenderness. Extremities: No edema, Capillary Refill Less than 3 Seconds Skin: No rashes, No breakdown Musculoskeletal: No Tenderness to Palpation of Joints or Extremities. ROM full and intact Neurological: Cranial nerves II-XII grossly intact, DTR 2+/4. No acute focal neurological deficit. Psych/Mental Status: Normal affect Weight / BMI Weight Weight: 295 lb 11.2 oz Body Mass Index (BMI) 38.9 ABG / Lab / Microbiology Data 12/10/24 11:15 12/12/24 06:05 Laboratory: Laboratory Results - last 24 hr 12/12/24 06:05: Sodium 140, Potassium 3.8, Chloride 105, Carbon Dioxide 25.0, Anion Gap 10, BUN 9, Creatinine 0.91, Estim Creat Clear Calc 172.11, Est GFR (MDRD) Non-Af 117, BUN/Creatinine Ratio 9.4 L, Glucose 93, Calcium 9.0 D/C Instructions Discharge Diet: No restrictions Weight Bearing Status: Weight bearing as tolerated Call your doctor if you observe: Fever of 101 or Higher, Coldness, Increased Pain, Numbness or Tingling, Change in Color, Inability to urinate, Inability to have a bowel movement, Shortness of breath, Dizziness, Fainting spells, Swelling in the ankles, Chest pain, Prolonged hiccupping, Increased palpitations (irregular heartbeat) and Calf discomfort DC O2, CPAP, BIPAP Needs Home O2 Discharge instructions: No When: IN 2 WEEKS Meaningful Use Info Meaningful Use Meaningful Use Diagnoses (Choose all that apply): None applicable Ischemic Stroke Statin Dosing Therapy Reference: STATIN DOSE THERAPY REFERENCE: * Patients > 75 years receive moderate or high dose statin therapy. * Patients 75 years or YOUNGER should receive HIGH intensity statin dose unless contraindicated. You will be required to document reason for non-treatment if statin daily dose does not meet guidelines. HIGH DOSE STATIN THERAPY DAILY Atorvastatin > than or = to 40 mg Rosuvastatin > than or = to 20 mg Amlodipine + Atorvastatin > than or = to 2.5/40 mg Ezetimibe + Simvastatin 10/80 mg Simvastatin 80mg Discharge Plan Admission Admit Date/Time: 12/10/24 12:37 Primary Reason for Your Visit: Acute opioid withdrawal syndrome Attending Provider: Henrik Crooks Primary Care Provider: Shoaib Humphrey Instructions Additional Instructions / Restrictions: Follow-up 18O as outpatient Discharge Orders/Prescriptions Prescriptions: Continued lisinopril 30 mg tablet 30 mg PO DAILY mecobalamin (vitamin B12) 1,000 mcg lozenge 1,000 mcg PO DAILY Rx Instructions: allow to dissolve in mouth OR may chew lightly before swallowing famotidine [Acid Controller] 20 mg tablet 20 mg PO DAILY trazodone 100 mg tablet 100 mg PO DAILY fluticasone propionate [24 Hour Allergy Relief] 50 mcg/actuation spray,suspension 2 spray intranasal DAILY Rx Instructions: administer into each nostril furosemide 20 mg tablet 20 mg PO DAILY PRN (Reason: edema) Referrals / Follow Up: Shoaib Humphrey MD [Primary Care Provider] - Disposition Disposition (needs filled in before D/C Order can be placed): Home, Self Care Charges/Coding Visit Charges Inpatient E&M: 52628 Disch Hosp >30min
--- NOTE | 2024-12-12 11:33 | PHA.DC.MR.R ---
Pharmacy [place] Med Reconciliation Pharmacy Service has performed discharge medication reconciliation for this patient. The patient's discharge medication list was reviewed for discrepancies and discrepancies were resolved. Medications at Discharge Home Medications famotidine 20 mg tablet (Acid Controller) 20 mg PO DAILY GERD 12/10/24 fluticasone propionate 50 mcg/actuation nasal spray,suspension (24 Hour Allergy Relief) 2 spray intranasal DAILY allergies 12/10/24 furosemide 20 mg tablet 20 mg PO DAILY PRN edema 12/10/24 lisinopril 30 mg tablet 30 mg PO DAILY HTN 12/10/24 mecobalamin (vitamin B12) 1,000 mcg lozenges 1,000 mcg PO DAILY SUPPLEMENT 12/10/24 trazodone 100 mg tablet 100 mg PO DAILY SLEEP 12/10/24
== END 2024-12-12 12:38 | disposition home or self-care (01) ==
LOC: ED 12:49 → MS3 12-11 08:51
PROVIDERS: Admitting Provider Internal Medicine; Emergency Provider Emergency Medicine; PCP Family Medicine; Referring Provider Internal Medicine; Visit Provider Internal Medicine
DX: F11.23 Opioid dependence with withdrawal (principal); E66.813 Obesity, class 3; N17.9 Acute kidney failure, unspecified; I10 Essential (primary) hypertension; F17.210 Nicotine dependence, cigarettes, uncomplicated; K21.9 Gastro-esophageal reflux disease without esophagitis; Z68.39 Body mass index [BMI] 39.0-39.9, adult; Z79.899 Other long term (current) drug therapy; M62.82 Rhabdomyolysis
CPT/HCPCS: 36415; 80048; 80053; 80307; 81001; 82077; 82550; 85025; 85610; 96360; 96361; 99221; 99283; G0378